=== PATIENT | female | born 1940 | race Caucasian/White ===

== ENCOUNTER 2021-06-22 15:51 | Outpatient (CLI) | payer MEDICARE, SELFPAY ==
--- NOTE | ~2021-06-22 | US_ITS ---
EXAMINATION: US thyroid DATE: 06/22/2021 17:34 INDICATION: Thyroid disease. TECHNIQUE: Multiple ultrasound images of the thyroid were obtained. COMPARISON: None. FINDINGS: The right thyroid lobe measures 3.8 x 1.7 x 1.3 cm. The left thyroid lobe measures 4.4 x 1.6 x 1.8 c m. In the right thyroid lobe, there is a 1.1 cm solid, hypoechoic, dcmtg-kwcj-owxk nodule with lobul ated margin and punctate echogenic foci (TI-RADS TR5). In the right thyroid lobe, there is an 8 mm so lid, very hypoechoic, qlaac-tmfk-mryj nodule with smooth margin without echogenic foci (TR4). In the left thyroid lobe, there is a 2.1 cm predominantly solid, hypoechoic, ztqtg-cdan-lrcd nodule with smo oth margin and punctate echogenic foci and macrocalcification (TR5). There are multiple subcentimeter nodules in the thyroid. IMPRESSION: 1. Multinodular goiter. Consider ultrasound-guided fine-needle aspiration of 2 nodules. Reviewed, dictated and finalized at location A.
== END 2021-06-22 15:52 | disposition home or self-care (01) ==
PROVIDERS: PCP Family Medicine
DX: E04.2 Nontoxic multinodular goiter (principal)
CPT/HCPCS: 76536

== ENCOUNTER 2023-03-04 09:16 | Outpatient (CLI) | payer MEDICARE, SELFPAY ==
--- NOTE | ~2023-03-04 | XR_ITS ---
EXAMINATION: XR barium swallow DATE: 03/04/2023 09:53 INDICATION: Dysphagia, unspecified. TECHNIQUE: The patient drank thick barium, gas-producing crystals, and thin barium. Fluoroscopy of th e hypopharynx and esophagus was performed. Fluoroscopy exposure time was 0.4 minutes. The total numbe r of images was 475. The dose-area product was 0.321 Gy-cm^2. COMPARISON: Upper gastrointestinal series 07/14/2009 FINDINGS: There is no mass or stricture of the esophagus. There is decreased primary and secondary es ophageal peristalsis. No abnormal tertiary waves. There is no hiatal hernia. There was no gastroesoph ageal reflux with provocative maneuvers. IMPRESSION: 1. Moderate esophageal dysmotility. Reviewed, dictated and finalized at location A. [employer]
== END 2023-03-04 09:17 | disposition home or self-care (01) ==
PROVIDERS: PCP Family Medicine; Visit Provider Nurse Practitioner Family
DX: R13.10 Dysphagia, unspecified (principal)
CPT/HCPCS: 74220

== ENCOUNTER 2023-03-05 02:37 | Day surgery (SDC) | payer MEDICARE, SELFPAY ==
[2023-02-19 08:47] VITALS: BMI 19.2
--- NOTE | 2023-02-19 08:53 | PC.NURSE ---
pat call to pt for her upcoming egd on mar 05, 2023. pt states when she was seen in gi office she was understood she was to be scheduled for a barium swallow prior to egd. she has not heard from anyone regarding appt. katharina vega rn called dr cuevas office to confirm and donell stated authorization for mbs was just obtained, she would be calling to schedule pt today. called pt back and informed her of this process. voiced understanding.
--- NOTE | 2023-03-03 09:28 | SUR.PREOP ---
Patient called regarding upcoming procedure. Reviewed preop instructions, appointment times, and procedure prep.
--- NOTE | 2023-03-05 12:30 | PM.HPGS ---
History of Present Illness History of Present Illness Consent: Risks, benefits, and alternatives have been discussed and questions answered. Patient agrees to proceed with procedure. Chief complaint: dysphagia unspecified, nausea Narrative: Alaina Torres is a 82 year old female with?dysphagia to solids and pills.? Symptoms have been going on for several years now and is stable.? dysphagia is worse with solids if she takes big bites or with sticky food such as peanut butter and jelly.? She also reports dysphagia to pills.? Here recently she has been cutting her pills in half and has to swallow approximately 10 times to get them the go down.? She reports sensation in the upper neck area.? she denies any coughing with swallowing.? She denies any vomiting of food back up. This typically will occur 2 to 3 times a month. She has also had queasiness and upset stomach but that improved when she began taking omeprazole. Review of Systems Review of Systems: All systems reviewed & are unremarkable except as noted in HPI and below PMFSH Past Medical History Medical History Hypertension Nausea Thyroid Nodule TIA (transient ischemic attack) Surgical History Surgical History Hx of hysterectomy Family History Family History Father Hypertension Family history of pancreatic cancer Grandparent Carcinoma of colon Mother Family history of Alzheimer's disease Social History Social History Smoking status: Never smoker Second hand tobacco smoke exposure: No Alcohol intake: current Drinks per week: 2 Alcohol use details: occasionally wine Substance use: never Substance use type: does not use Living arrangements: with family Additional living arrangements comments: 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 Occupation/Education: retired Gender identity (if verbalized by the patient): Female Spiritual care concerns: No Meds Home Medications and Allergies Home Medications Medication Instructions Recorded Confirmed Type aspirin 81 mg tablet,delayed 81 mg PO DAILY 09/23/19 03/05/23 History release (Adult Low Dose Aspirin) diltiazem HCl 120 mg 120 mg PO DAILY 09/23/19 03/05/23 History capsule,extended release 24 hr calcium carbonate 500 mg calcium 2,500 mg PO DAILY 10/27/20 03/05/23 History (1,250 mg) chewable tablet (Calcium 500) cholecalciferol (vitamin D3) 50 50 mcg PO DAILY 10/27/20 03/05/23 History mcg (2,000 unit) capsule coenzyme Q10 50 mg capsule (Co 50 mg PO DAILY 10/27/20 03/05/23 History Q-10) lisinopril 20 mg tablet 20 mg PO DAILY #30 tabs 10/27/20 03/05/23 Rx multivitamin 1 tablet PO DAILY 10/27/20 03/05/23 History omega-3 360 ax-dwk-gsk-fish oil 1 cap PO DAILY 10/27/20 03/05/23 History 1,200 mg capsule,delayed release (Fish Oil) vit C 250 mg-vit E 90 mg-zinc 40 1 tablet PO BID 10/27/20 03/05/23 History mg-copper 1 fe-znvaoi-qntiru capsule (PreserVision AREDS-2) vitamin E 200 unit capsule 200 unit PO DAILY 10/27/20 03/05/23 History ergocalciferol (vitamin D2) 1,250 1,250 mcg PO WEEKLY #12 caps 10/30/20 03/05/23 Rx mcg (50,000 unit) capsule (Vitamin D2) methimazole 5 mg tablet 2.5 mg PO DAILY 05/08/22 03/05/23 History lorazepam 0.5 mg tablet 0.5 mg PO BID PRN anxiety #60 tabs 12/20/22 03/05/23 Rx omeprazole 20 mg capsule,delayed 20 mg PO DAILY 1 month #30 caps 02/11/23 03/05/23 Rx release mupirocin 2 % topical ointment 1 applic topical BID #15 grams 03/03/23 03/05/23 Rx Allergies Allergy/AdvReac Type Severity Reaction Status Date / Time nitrofurantoin Allergy Unknown Unknown Verified 03/05/23 12:28 Exam Const: General: alert Orientation/consciousness: patient oriented x3 Resp: Auscultation: clear to auscultat
[2023-03-05 12:31] VITALS: BP 146/77; PULSE 80; RESP 16; TEMP 36.3; O2SAT 98
[2023-03-05] MEDS: LACTATED RINGERS 1,000 ML 150 ML IV CONT (12:42)
--- NOTE | 2023-03-05 12:53 | WPDANESEPPF ---
Anes - Initial Pre Proc Eval Procedure: Operation Date: 03/05/23 13:30 Proposed Procedures p Esophagogastroduodenoscopy - Ameya Tam MD Date/Time: 03/05/23 12:53 Surgeon: Ameya Tam MD Pre Op Diagnosis: dysphagia unspecified, nausea Patient Data Age: 82 Gender: F Height: 1.68 m Weight: 54.8 kg Last Vital Signs Temp 97.4 F L 03/05/23 12:31 Pulse 80 03/05/23 12:31 Resp 16 03/05/23 12:31 BP 146/77 H 03/05/23 12:31 Pulse Ox 98 03/05/23 12:31 O2 Del Method Room Air 03/05/23 12:31 Allergies Allergy/AdvReac Type Severity Reaction Status Date / Time nitrofurantoin Allergy Unknown Unknown Verified 03/05/23 12:28 Home Medications Medication Instructions Recorded Confirmed Type aspirin 81 mg tablet,delayed 81 mg PO DAILY 09/23/19 03/05/23 History release (Adult Low Dose Aspirin) diltiazem HCl 120 mg 120 mg PO DAILY 09/23/19 03/05/23 History capsule,extended release 24 hr calcium carbonate 500 mg calcium 2,500 mg PO DAILY 10/27/20 03/05/23 History (1,250 mg) chewable tablet (Calcium 500) cholecalciferol (vitamin D3) 50 50 mcg PO DAILY 10/27/20 03/05/23 History mcg (2,000 unit) capsule coenzyme Q10 50 mg capsule (Co 50 mg PO DAILY 10/27/20 03/05/23 History Q-10) lisinopril 20 mg tablet 20 mg PO DAILY #30 tabs 10/27/20 03/05/23 Rx multivitamin 1 tablet PO DAILY 10/27/20 03/05/23 History omega-3 360 fh-gzr-dqx-fish oil 1 cap PO DAILY 10/27/20 03/05/23 History 1,200 mg capsule,delayed release (Fish Oil) vit C 250 mg-vit E 90 mg-zinc 40 1 tablet PO BID 10/27/20 03/05/23 History mg-copper 1 fb-nugisx-sqpunf capsule (PreserVision AREDS-2) vitamin E 200 unit capsule 200 unit PO DAILY 10/27/20 03/05/23 History ergocalciferol (vitamin D2) 1,250 1,250 mcg PO WEEKLY #12 caps 10/30/20 03/05/23 Rx mcg (50,000 unit) capsule (Vitamin D2) methimazole 5 mg tablet 2.5 mg PO DAILY 05/08/22 03/05/23 History lorazepam 0.5 mg tablet 0.5 mg PO BID PRN anxiety #60 tabs 12/20/22 03/05/23 Rx omeprazole 20 mg capsule,delayed 20 mg PO DAILY 1 month #30 caps 02/11/23 03/05/23 Rx release mupirocin 2 % topical ointment 1 applic topical BID #15 grams 03/03/23 03/05/23 Rx Patient hx anesthesia problems: none Family hx anesthesia problems: none Results Review: All pre-operative results and documents have been reviewed as part of the pre-operative evaluation. [facility] Past Medical History Medical History Hypertension Nausea Thyroid Nodule TIA (transient ischemic attack) Surgical History Surgical History Hx of hysterectomy Family History Family History Father Hypertension Family history of pancreatic cancer Grandparent Carcinoma of colon Mother Family history of Alzheimer's disease Social History Social History Smoking status: Never smoker Second hand tobacco smoke exposure: No Alcohol intake: current Drinks per week: 2 Alcohol use details: occasionally wine Substance use: never Substance use type: does not use Living arrangements: with family Additional living arrangements comments: 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
[2023-03-05 13:12] VITALS: BP 148/59; PULSE 76; RESP 19; O2SAT 98
[2023-03-05 13:22] VITALS: BP 148/76; PULSE 77; RESP 19; O2SAT 98
[2023-03-05 13:32] VITALS: BP 158/75; PULSE 77; RESP 20; O2SAT 98
== END 2023-03-05 13:44 | disposition home or self-care (01) ==
PROVIDERS: PCP Family Medicine; Visit Provider Internal Medicine Gastroenterology
PROC: 0DJ08ZZ Inspection of Upper Intestinal Tract, Via Natural or Artificial Opening Endoscopic (ICD-10-PCS; CPT 43235; principal; 2023-03-05 13:30)
DX: K21.9 Gastro-esophageal reflux disease without esophagitis (principal); Z79.82 Long term (current) use of aspirin; I10 Essential (primary) hypertension; Z86.73 Personal history of transient ischemic attack (TIA), and cerebral infarction without residual deficits
CPT/HCPCS: 43450; 43239; 88305; J7120

== ENCOUNTER 2024-07-16 09:54 | Inpatient (IN) | payer MEDICARE, SELFPAY ==
[2024-07-16] VITALS (14 sets, daily range): BP systolic 137–174; BP diastolic 64–109; PULSE 52–103; RESP 13–20; TEMP 36.4–37.6; O2SAT 95–100; BMI 22.7
--- NOTE | ~2024-07-16 | XR_ITS ---
Portable chest x-ray Comparison: 10/24/2008 Clinical History: Preoperative evaluation Findings: Lungs are clear, without focal consolidation or pleural effusion. Cardiomediastinal silho uette is enlarged. Bones and soft tissues are unremarkable. Impression: Clear lungs. Cardiomegaly. Reviewed, dictated and finalized at location . Impression: Clear lungs. Cardiomegaly.
--- NOTE | ~2024-07-16 | XR_ITS ---
AP view of the pelvis and AP and lateral views of the left hip Clinical history: Pain Findings: No acute fracture or dislocation is seen. There is an acute, comminuted intertrochanteric f racture of the proximal left femur with significant displacement and varus attenuation of the major d istal fracture fragment.. Soft tissues are unremarkable. Impression: Acute, comminuted, significantly displaced and angulated intertrochanteric fracture of the proximal l eft femur. Reviewed, dictated and finalized at location M. Impression: Acute, comminuted, significantly displaced and angulated intertrochanteric frac ture of the proximal left femur.
--- NOTE | ~2024-07-16 | XR_ITS ---
INTRAOPERATIVE FLUOROSCOPY: CLINICAL HISTORY: 84 years old Female; IT NAIL LEFT HIP FX PROCEDURE COMMENTS: Limited intraoperative fluoroscopy of the left hip was performed. CUMULATIVE DOSE: 8.2 mGy FLUOROSCOPY TIME: 23.2 seconds FINDINGS/IMPRESSION: Please refer to operative note for further details. Reviewed, dictated and finalized at location A.
--- NOTE | ~2024-07-16 | XR_ITS ---
EXAMINATION: XR chest 1V portable 07/22/2024 09:38 INDICATION: Hypotension PROCEDURE: AP portable chest COMPARISON: 07/16/2024 FINDINGS: The lungs are clear. The cardiomediastinal silhouette is mildly enlarged. There are no ple ural effusions. There is no pneumothorax suspected. IMPRESSION: 1: NO ACUTE CARDIOPULMONARY DISEASE. Reviewed, dictated and finalized at location A.
--- NOTE | 2024-07-16 10:02 | ECG_ITS ---
Test Date: 2024-07-16 10:00:49 Measurements Intervals [place] Rate: 79 P: 83 CA: 136 QRS: 73 QRSD: 86 T: 52 QT: 412 QTc: 475 Interpretive Statements SINUS RHYTHM POSSIBLE LEFT ATRIAL ENLARGEMENT MINIMAL Q WAVES- INF/LAT LEADS BASELINE ARTIFACT- I, II, III, AVR, AVL, AVF, V4-V6 BORDERLINE ECG No previous ECG available for comparison Electronically Signed On 07-16-2024 10:12:22 CDT by Tarun Arthur D.O.
[2024-07-16] MEDS: HYDROmorphone HCL INJ (*CRX) 2 MG/ML VIAL 0.5 MG IV PUSH ×2 (10:15→12:28)
[2024-07-16] MEDS: CYCLOBENZAPRINE HCL 10 MG TABLET PO (10:15)
--- NOTE | 2024-07-16 10:24 | ED.GENADULT ---
HPI - General Adult General Chief complaint: Extremity Injury, Lower Stated complaint: RLE pain/fall Time Seen by Provider: 07/16/24 10:01 History of Present Illness HPI narrative: 82-year-old female present to the emergency department for evaluation for left hip pain. Patient states that she had a mechanical fall and tripped over a rug that was in a different position. Patient states she did injure her left hip but patient denies striking head denies any loss of consciousness. Patient arrived emergency department by EMS with a left leg that was short and externally rotated. Patient denies any prior surgeries. Patient states she is not on any blood thinners. Related Data Home Medications ?Medication ?Instructions ?Recorded ?Confirmed ?Last Taken ?Type aspirin 81 mg tablet,delayed 81 mg PO DAILY 09/23/19 07/16/24 03/04/23 History release (Adult Low Dose Aspirin) diltiazem HCl 120 mg 120 mg PO DAILY 09/23/19 07/16/24 03/04/23 History capsule,extended release 24 hr calcium carbonate (Calcium 500) 2,500 mg PO DAILY 10/27/20 07/16/24 03/04/23 History cholecalciferol (vitamin D3) 50 50 mcg PO DAILY 10/27/20 07/16/24 03/04/23 History mcg (2,000 unit) capsule coenzyme Q10 50 mg capsule (Co 50 mg PO DAILY 10/27/20 07/16/24 03/04/23 History Q-10) multivitamin 1 tablet PO DAILY 10/27/20 07/16/24 03/04/23 History vitamin E 200 unit capsule 200 unit PO DAILY 10/27/20 07/16/24 03/04/23 History methimazole 5 mg tablet 2.5 mg PO DAILY 05/08/22 07/16/24 03/04/23 History lorazepam 1 mg tablet 1 mg PO Q12H anxiety 07/16/24 07/16/24 Unknown History Allergies Allergy/AdvReac Type Severity Reaction Status Date / Time nitrofurantoin Allergy Unknown Unknown Verified 07/16/24 16:31 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 Hemorrhoids Diverticulosis GERD (gastroesophageal reflux disease) Thyroid Nodule Dysphagia Intertrochanteric fracture of left hip Nausea TIA (transient ischemic attack) Hypertension Surgical History Surgical History Hx of hysterectomy Family History Family History Father Hypertension Family history of pancreatic cancer Grandparent Carcinoma of colon Mother Family history of Alzheimer's disease Social History Social History Smoking status: Never smoker Second hand tobacco smoke exposure: No Alcohol intake: current Drinks per week: 1 Alcohol use details: occasionally wine Substance use: never Substance use type: does not use Do You Feel Safe in your Home?: Yes Lack of Transportation: No Lack of Food: Never True Current Housing: I Have Housing Concerned About Future Housing: No Difficulty Paying Gas/Electric Bills: No Difficulty Paying for Meds: No Currently Unemployed: No Education: Master's Degree or Higher Difficulty w/ Childcare or Family Care: No Living arrangements: with family Additional living arrangements comments: 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 EYES: PERRLA/EOMI, conjunctivae clear. NOSE: Normal no drainage EARS:TMS clear with good light reflex. THROAT: Pharynx clear, no exudate. NECK: Supple. No adenopathy, no masses. RESPIRATORY: Airway patent, respirations nonlabored. Clear to auscultation bilaterally, no rales, rhonchi, wheezing. CARDIOVASCULAR: Regular rate and rhythm without murmurs rubs or gallops. ABDOMINAL: Soft, nontender, nondistended, normal bowel sounds MUSCULOSKELETAL: Left leg is shortened with strong distal pulses NEURO: Alert. Cranial nerves II through XII intact. Good gait. Good coordination SKIN: Warm, dry. Normal Color Course Vital Signs Vital signs: Vital Signs Temperature 97.9 F 07/16/24 09:58 Pulse Rate 86 07/16/24 09:58 Respiratory Rate 16 07/16/24 09:58 Blood Pressure 166/91 H 07/16/24 09:58 Pulse Oximetry 100 07/16/24 09:58 Oxygen Delivery Room Air 07/16/24 09:58 Temperature 97.9 F 07/16/24 16:33 Pulse Rate 83 07/16/24 16:33 Respiratory Rate 18 07/16/24 16:33 Blood Pressure 147/71 H 07/16/24 16:33 Pulse Oximetry 100 07/16/24 16:33 Oxygen Delivery Room Air 07/16/24 16:00 Oxygen Flow Rate 2 07/16/24 15:25 Medical Decision Making MDM Narrative Medical decision making narrative: 84-year-old female presents emergency department for evaluation for left hip pain. X-ray showed a comminuted intertroch fracture. Case was discussed with Orthopedics and they felt that this could be handled surgically here. Case was discussed with hospitalist and patient was admitted to the hospitalist with ortho consult. Patient family updated on the results of the imaging and plan for surgical intervention. Patient was provided IV medications for pain control. All questions concerns were addressed. Patient was comfortable with plan for anticipated surgery and hospitalization. Patient states she did have a family member that stated [facility] and if she needed rehab she would be interested in going to that facility. Differential Diagnosis Differential Diagnosis: Hip fracture, hip dislocation, pelvic fracture Vital Signs Vital Signs: Vital Signs Temperature 97.9 F 07/16/24 09:58 Pulse Rate 86 07/16/24 09:58 Respiratory Rate 16 07/16/24 09:58 Blood Pressure 166/91 H 07/16/24 09:58 Pulse Oximetry 100 07/16/24 09:58 Oxygen Delivery Room Air 07/16/24 09:58 Temperature 97.9 F 07/16/24 16:33 Pulse Rate 83 07/16/24 16:33 Respiratory Rate 18 07/16/24 16:33 Blood Pressure 147/71 H 07/16/24 16:33 Pulse Oximetry 100 07/16/24 16:33 Oxygen Delivery Room Air 07/16/24 16:00 Oxygen Flow Rate 2 07/16/24 15:25 Lab Data Lab results reviewed: Yes I reviewed the patient's lab results. 07/16/24 10:21 07/16/24 10:21 Labs: Lab Results 07/16/24 Range/Units 10:21 WBC 6.7 (4.5-10.0) K/mm3 RBC 4.31 (4.2-5.4) M/mm3 Hgb 12.3 (12.0-15.0) g/dL Hct 38.8 (37.0-47.0) % MCV 90.0 (80-100) fl MCH 28.5 (26-34) pg MCHC 31.7 L (32-36) g/dl RDW 13.3 (11.5-14.5) % Plt Count 225 (150-375) k/mm3 MPV 10.1 (7.4-10.4) fl Immature Gran % (Auto) 0.2 (0-0.5) % Neut % (Auto) 60.2 (45.5-73.1) % Lymph % (Auto) 26.5 (18.3-44.2) % [place] % (Auto) 8.7 H (2.6-8.5) % Eos % (Auto) 3.6 (0-4.4) % Baso % (Auto) 0.8 (0.2-1.2) % Lymph # (Auto) 1.76 (0.9-3.2) K/mm3 [place] # (Auto) 0.6 (0.1-0.6) K/mm3 Eos # (Auto) 0.2 (0-0.3) K/mm3 Baso # (Auto) 0.1 (0.0-0.1) K/mm3 Abs Immat Gran (auto) 0.01 (0.00-0.031) K/mm3 Absolute Neuts (auto) 4.0 (1.3-6.7) K/mm3 Absolute Nucleated RBC 0.000 (0.0-0.012) K/mm3 Nucleated RBC % 0.0 (0.0-0.2) % PT 12.9 (11.1-14.7) Seconds INR 0.9 APTT 25.0 (22.3-36.8) Seconds Sodium 140 (137-145) mmol/L Potassium 4.4 (3.4-5.0) mmol/L Chloride 107 (98-107) mmol/L Carbon Dioxide 28 (22-30) mmol/L Anion Gap 5 (4-12) mmol/L BUN 26 H (7-17) mg/dL Creatinine 0.94 (0.7-1.0) mg/dL Estim Creat Clear Calc 38 ml/min Estimated GFR 57 L (59 - ) Glucose 100 (65-110) mg/dL Calcium 9.4 (8.4-10.2) mg/dL Total Bilirubin 0.6 (0.2-1.3) mg/dL AST 27 (14-36) U/L ALT 21 (6-35) U/L Alkaline Phosphatase 78 (38-126) U/L Total Protein 7.0 (6.3-8.2) g/dL Albumin 4.1 (3.5-5.1) g/dL Blood Type O Positive Antibody Screen Negative Imaging Data Radiologist's impression: Impressions Hip/Pelvis X-Ray 07/16/24 10:39 Impression: Acute, comminuted, significantly displaced and angulated intertrochanteric fracture of the proximal left femur. Chest X-Ray 07/16/24 10:40 Impression: Clear lungs. Cardiomegaly. Discharge Plan Discharge Clinical Impression: Closed fracture of left hip Patient Disposition: Still a Patient Condition: Stable
[2024-07-16 10:31] LABS: Basophils Absolute Auto 0.1 K/mm3 (0.0-0.1); Basophils Percent Auto 0.8 % (0.2-1.2); Eosinophils Absolute Auto 0.2 K/mm3 (0-0.3); Eosinophils Percent Auto 3.6 % (0-4.4); Hematocrit 38.8 % (37.0-47.0); Hemoglobin 12.3 g/dL (12.0-15.0); Immature Granulocyte Absolute 0.01 K/mm3 (0.00-0.031); Immature Granulocyte Percent A 0.2 % (0-0.5); Lymphocytes Absolute Auto 1.76 K/mm3 (0.9-3.2); Lymphocytes Percent Auto 26.5 % (18.3-44.2); Mean Corpuscular HGB Conc 31.7 g/dl (32-36); Mean Corpuscular Hemoglobin 28.5 pg (26-34); Mean Platelet Volume 10.1 fl (7.4-10.4); Monocytes Absolute Auto 0.6 K/mm3 (0.1-0.6); Monocytes Percent Auto 8.7 % (2.6-8.5); Neutrophils Percent Auto 60.2 % (45.5-73.1); Platelet Count Result 225 k/mm3 (150-375); Red Blood Count 4.31 M/mm3 (4.2-5.4); Red Cell Distribution Width 13.3 % (11.5-14.5); White Blood Count 6.7 K/mm3 (4.5-10.0)
[2024-07-16 10:43] LABS: INR 0.9; Prothrombin Time 12.9 Seconds (11.1-14.7)
[2024-07-16 10:45] LABS: Alanine Aminotransferase 21 U/L (6-35); Albumin Level 4.1 g/dL (3.5-5.1); Alkaline Phosphatase 78 U/L (38-126); Anion Gap 5 mmol/L (4-12); Aspartate Amino Transferase 27 U/L (14-36); Bilirubin,Total 0.6 mg/dL (0.2-1.3); Blood Urea Nitrogen 26 mg/dL (7-17); Calcium 9.4 mg/dL (8.4-10.2); Carbon Dioxide 28 mmol/L (22-30); Chloride 107 mmol/L (98-107); Estimated CRCL calculation 38 ml/min; Estimated Glomerular Filt Rate 57; Glucose 100 mg/dL (65-110); Potassium 4.4 mmol/L (3.4-5.0); Sodium 140 mmol/L (137-145)
--- OUTSIDE RECORDS SUMMARY | 2024-07-16 11:03 | XMS_ITS | Clinical Summary ---
Author Organization [facility] Address [address] [place] [address] Care Team Providers Care Gas Scrubber Operator Name Role Phone Lizett Ames MD Primary Care Provider [phone] Allergies Active Allergy Reactions Criticality Noted Date Comments Nitrofurantoin Swelling 06/03/2012 Reaction: SWELLING, , Nitrofurantoin Monohyd/M-Cryst Anaphylaxis High 02/07/2013 Medications co-enzyme Q-10 50 mg capsule Active aspirin 81 mg tablet Active multivitamin tabletIndicatio ns:Vitamin Deficiency Prevention Active vitamin E (AQUASOL E) 100 unit capsule Active cyanocobalamin (Vitamin B-12) 250 mcg tablet Take 1 tablet (250 mcg total) by mouth daily Active CARTIA XT 120 mg 24 hr capsule Take 1 capsule (120 mg total) by mouth daily 03/15/2019 Active cholecalciferol (VITAMIN D-3) 25 mcg (1,000 unit) tablet Take 2 tablets (2,000 Units total) by mouth daily 60 tablet 11 01/24/2020 Active lisinopriL (PRINIVIL,ZESTR IL) 20 mg tablet Take 1 tablet (20 mg total) by mouth daily 11/28/2020 Active LORazepam (ATIVAN) 0.5 mg tablet Take 1 tablet (0.5 mg total) by mouth 01/12/2021 Active calcium carbonate-vitam in D3 (CALTRATE 600 + D) 1500 mg (600 mg elemental) -400 units per tablet Take 1 tablet by mouth daily Active vit A/vit C/vit E/zinc/copper (PRESERVISION AREDS ORAL) Take by mouth Acti ve zoledronic acid 4 mg/5 mL injection Infuse into a venous catheter Once a year Active omeprazole (PriLOSEC) 20 mg capsule Take 1 capsule (20 mg total) by mouth daily Active escitalopram (LEXAPRO) 10 mg tablet Take 1 tablet (10 mg total) by mouth daily 02/20/2024 Active methIMAzole (TAPAZOLE) 5 mg tablet Take 1/2 (one-half) tablet by mouth once daily 45 tablet 1 06/10/2024 Active Active Problems Problem Noted Date Diagnosed Date Subclinical hyperthyroidism 10/15/2021 Assessment & Plan (02/10/2023 12:09 PM FORMULA ROOM WORKER): Follow up TFT today Assessment & Plan (01/15/2022 3:20 PM CDT): Given age, symptoms and osteoporosis - she is eligible for treatment Discussed FNA of nodules ----> if malignant ---> consider surgery If benign, discussed medical therapy vs. DOHERTY Patient prefers medical therapy - started on methimazole 09/2021 Recheck TSH/free 4 today to evaluate effect of methimazole Assessment & Plan (10/15/2021 1:29 PM CDT): Given age, symptoms and osteoporosis - She is eligible for treatment Discussed FNA of nodules ----> if malignant ---> consider surgery If benign, discussed medical therapy vs DOHERTY Patient prefers medical therapy - will start small dose MMI based on labs today 5 mg vs 2.5 mcg Recheck labs and symptoms in 2-3 months Discussed MMI AEs Thyroid nodule 10/15/2021 Assessment & Plan (02/10/2023 12:10 PM FORMULA ROOM WORKER): Benign Plan follow up neck US in 1-2 years Assessment & Plan (01/15/2022 3:22 PM CDT): The left and right thyroid nodules meet the BJORN guidelines for biopsy/fine- needle aspiration Patient is a clinically euthyroid We discussed the procedure of fine-needle aspiration, risk and benefit, patient was willing to proceed Discussed consent with patient in details and patient consented to procedure today Discussed potential results including benign, malignant, AUS/FLUS, and suspicious I handed the patient an education brochure detailing thyroid nodule and fine- needle aspiration Discussed natural history and course of follow-up of thyroid nodules FNA of the left-sided nodule and two small right-sided nodules (one on top of another with a very similar appearance) was performed today We will inform her about FNA results Assessment & Plan (10/15/2021 1:12 PM CDT): We reviewed the ultrasound images with the patient. The left and right thyroid nodules meet the BJORN guidelines for biopsy/fine- needle aspiration Patient is a clinically and biochemically euthyroid We discussed the procedure of fine-needle aspiration, risk and benefit, patient is willing to proceed Discussed consent with patient in details and patient consented to procedure today Discussed potential results including benign, malignant, AUS/FLUS, and suspicious I handed the patient an education brochure detailing thyroid nodule and fine- needle aspiration Discussed natural history and course of follow-up of thyroid nodules Irregular heart rate 09/08/2018 Age-related osteoporosis wit hout current pathological fracture 09/07/2018 Assessment & Plan (10/15/2021 1:13 PM CDT): On Reclast Following with [facility] Hypertension 02/19/2012 Overview (06/28/2016): Hypertension, Unspecified Encounters Date Type Department Care Team Description 05/13/2024 2:00 PM FORMULA ROOM WORKER Infusion [address] [place] [phone] Age-related osteoporosis without current pathological fracture (Primary Dx) 05/03/[address] [place] [phone] Carla García RN from Last 3 Months Surgical History Surgery Date Site/Laterality Comments HYSTERECTOMY Total Hysterectomy - (Added by TW Conv) CATARACT EXTRACTION 2018 Medical History Medical History Date Comments Personal history of transien t ischemic attack (TIA), and cerebral infarction without residual deficits History of transient cerebra l ischemia - (Added by TW Conv) Osteoporosis Heart disease Hypertension Family History Medical History Relation Name Comments Cancer Father Lauvear Hearing loss Father Lauvear Hip fracture Father Lauvear Hypertension Father Lauvear Parkinsonism Father Lauvear Family history of Parkinson's disease - (Added by TW Conv) Prostate cancer Father Lauvear Cancer, pros mitchell; Alzheimer's disease Mother Natasha Family h istory of Alzheimer's disease - (Added by TW Conv) Hip fracture Mother Natasha Osteoporosis Mother [place] Stroke Mother Natasha Family history of cerebrovascular accident (CVA) - (Added by TW Conv) Relation Name Status Comments Father Delmauvear Mother Natasha Social History Tobacco Use Types Packs/Day Years Used Date Smoking Tobacco: Never Smokeless Tobacco: Never Tobacco Cessation:Counseling Given: Not Answered Alcohol Use Standard Drinks/Week Comments Yes 0 (1 standard drink = 0.6 oz pur e alcohol) Comments Unknown Sex and Gender Information Value Date Recorded Sex Assigned at Not on file Legal Sex Female 12:57 AM FORMULA ROOM WORKER Gender Identity Not on file Sexual Orientation Not on file Obstetrics History Last Filed Vital Signs Vital Sign Reading Time Taken Comments Blood Pressure 159/83 05/13/2024 2:13 PM FORMULA ROOM WORKER Pulse 62 05/13/2024 2:13 PM FORMULA ROOM WORKER Temperature 36.5 C (97.7 F) 05/13/2024 2:13 PM FORMULA ROOM WORKER Respiratory Rate 20 05/13/2024 2:13 PM FORMULA ROOM WORKER Oxygen Saturation 97% 05/13/2024 2:13 PM FORMULA ROOM WORKER Inhaled Oxygen Concentration - - Weight 54.3 kg (119 lb 9.6 oz) 04/14/2024 10:44 AM FORMULA ROOM WORKER Height 167.6 cm (5' 6 ) 04/14/2024 10:44 AM FORMULA ROOM WORKER Body Mass Index 19.3 04/14/2024 10:44 AM FORMULA ROOM WORKER Plan of Treatment Health Maintenance Due Date Last Done Comments Depression Screening 1940 Fall Risk Assessment 1940 Hepatitis B Screening 1960 Well Visit 65+ 06/09/2007 DTaP/Tdap/Td Vaccine (2 - Td or Tdap) 05/25/2023 05/24/2013, 01/10/2003 Influenza Vaccine (#1) 2023 , 12/22/2018, 12/25/2017, Additional history exists Osteoporosis Screening-Bone Density Scan 04/14/2026 04/14/2024, 03/25/2023, 02/18/2022, Additional history exists Pneumococcal vaccine 65+ Completed 019, 09/20/2016, 02/07/2010 Zoster Vaccine Completed 06/16/2018, 11/08/2017 Procedures Procedure Name Priority Date/Time Associated Diagnosis Comments DEXA TBS AXIAL SKELETON BONE DENSITY 1 OR MORE SITES Schedule Routine, Read Routine (OP Routine) 04/14/2024 10:46 AM FORMULA ROOM WORKER Age-related osteoporosis without current pathological fracture from Last 3 Months or Most Recently Relevant to Health Maintenance Results * Dexa TBS Axial Skeleton Bone Density 1 or more sites (04/14/2024 10:46 AM FORMULA ROOM WORKER) Anatomical Region Laterality Modality Wrist, Body N/A Radiographic Edwina ging Narrative 04/19/2024 12:11 PM FORMULA ROOM WORKER Patient Name: Alaina Fournier Date of : 1940 Date of scan: 04/14/2024 Bone mineral density was performed on a Hologic Discovery Densitometer. Based on machine cross-calibration and precision studies the least significant changes of this densitometer is 0.024 g/cm2 at the spine, 0.020 g/cm2 at the total proximal femur, and 0.014g/cm2 at the forearm. HISTORY: This is a 83 y.o. postmenopausal female with a history of osteoporosis, thyroid disease, and vitamin D deficiency. She reports that she has never smoked. She has never used smokeless tobacco. Currently on treatment with calcium, vitamin D, and thyroid hormone and previously treated with alendronate (Fosamax), risedronate (Actonel), zoledronic acid (Reclast), teriparatide (Forteo), and hormone replacement therapy. INDICATIONS: Menopause status, history of prior wrist and vertebral fracture, vitamin D deficiency, and history of osteoporosis. FINDINGS: BONE MINERAL DENSITY OF THE LUMBAR SPINE Bone Mineral Density (BMD) of the lumbar spine was measured from L1-L4 and the average density was calculated to be 1.091 gm/cm2. This corresponds to a T-score (standard deviations from the mean of young adults) of 0.4. When compared to the previous study of 03/25/2023 there has been no significant changes in bone density. BONE MINERAL DENSITY OF THE PROXIMAL FEMUR Bone Mineral Density (BMD) of the left hip total was found to be 0.695 gm/cm2. This corresponds to a T-score standard deviations from the mean of young adults of -2.0. Femoral neck is 0.522 gm/cm2 with a T-score (standard deviations from the mean of young adults) of -2.9. When compared to the previous study of 03/25/2023 there has been no significant changes in bone density. BONE MINERAL DENSITY OF THE FOREARM Bone Mineral density (BMD) of the left proximal 1/3 of the radius measures 0.582 gm/cm2. This corresponds to a T-score (standard deviations from the mean of young adults) of -1.9. When compared to the previous study of 03/25/2023 there has been a -0.021 gm/cm (-3.4%) decrease in bone density that is considered significant. A forearm bone density study was performed in addition to the routine study due to the need to provide a comparison to the previous exam. SUMMARY: Bone mineral density shows evidence of osteoporosis and marked increase risk of fracture. There has been a significant decrease in bone density since previous measurement. The lumbar spine Trabecular Bone Score is 1.308 which suggests partially degraded bone microarchitecture compared to the general population. Final decisions regarding diagnostic or therapeutic recommendations should include BMD, TBS, additional clinical risk factors as well the clinical context of the patient. Please see attached TBS results for further details. ADDITIONAL COMMENTS: Postmenopausal Women and Men Over 50: Diagnostic criteria: Osteoporosis: BMD at or below -2.5 T-score; Osteopenia (low bone mass): BMD between -1.0 and -2.5 T-score. If the patient has a history of a fragility fracture, a fracture that occurred with trauma equivalent to a fall from a standing position or less, then the diagnosis is osteoporosis regardless of bone density. The history and data sections of the bone mineral density scan were prepared by Lara Omer) BRUNA who is accredited by the International Society of Clinical Densitometry. The overall patient assessment and scan interpretation were performed by Lukas Olivo M.D. who is certified by the International Society of Clinical Densitometry. [id number] Lukas Olivo MD IMG DXA PROCEDURES Final Result from Last 3 Months or Most Recently Relevant to Health Maintenance Insurance COUNTS INCLUDE 234 BEDS AT THE [facility] MEDICARE INCLUDE 234 BEDS AT THE [facility] MEDIC[facility] Address: [address] [place] [address] [employer] MEDICARE [facility] Address: [address] [address] [place] [address] COUNTS INCLUDE 234 BEDS AT THE [facility] MEDICARE Care Teams Gas Scrubber Operator Relationship Specialty Start Date End Date Lizett Ames MD PCP - General Family Medicine 11/09/21
--- OUTSIDE RECORDS SUMMARY | 2024-07-16 11:03 | XMS_ITS | Encounter Summary ---
Author Organization [facility] Address [address] [place] [address] Care Team Providers Care Delivery Representative Name Role Phone Makeda Pillai MD Primary Care Provi [facility] Reason for Visit * Reason Comments Med Refill Encounter Details Date Type Department Care Team (Late st Contact Info) Description 07/15/2024 Refill [facility] [address] [place] [phone] Chaz Olvera MD [address] [place] [address] [address] [place] [address] Social History Tobacco Use Types Packs/Day Years Used Date Smoking Tobacco: Never Smokeless Tobacco: Never Alcohol Use Standard Drinks/Week Comments Yes 3.3 (1 standard drink = 0.6 oz p ure alcohol) glass of wine 3 times a week Comments No Sex and Gender Information Value Date Recorded Sex Assigned at Not on file Legal Sex Female 11:31 AM SUPERVISOR PRE WAVE Gender Identity Not on file Sexual Orientation Not on file Occupation Industry Job Start Date Job End Date Not on file Not on file Not on file Not on file Not on file Not on file Not on file Not on file documented as of this encounter Miscellaneous Notes * Telephone Encounter - Rose Junior T - 07/16/2024 7:51 AM CDT Comments: Date Last Seen: 10/13/2023 with Chaz Olvera MD Next Appointment: with Chaz Olvera MD Last BMP: Lab Results Component Value Date/Time NA 141 11/15/2022 12:00 AM K 4.9 11/15/2022 12:00 AM CL 107 11/15/2022 12:00 AM CO2 27 11/15/2022 12:00 AM CA 9.9 11/15/2022 12:00 AM BUN 27 (H) 11/15/2022 12:00 AM CREAT 0.98 (H) 11/15/2022 12:00 AM GLUCOSE 88 11/15/2022 12:00 AM BCRATIO 28 (H) 11/15/2022 12:00 AM Last CMP: Lab Results Component Value Date/Time NA 141 11/15/2022 12:00 AM K 4.9 11/15/2022 12:00 AM CL 107 11/15/2022 12:00 AM CO2 27 11/15/2022 12:00 AM CA 9.9 11/15/2022 12:00 AM BUN 27 (H) 11/15/2022 12:00 AM CREAT 0.98 (H) 11/15/2022 12:00 AM GLUCOSE 88 11/15/2022 12:00 AM TOTALPROTEIN 6.8 11/15/2022 12:00 AM ALBUMIN 4.4 11/15/2022 12:00 AM BILITOTAL 0.4 11/15/2022 12:00 AM ALKPHOS 60 11/15/2022 12:00 AM AST 20 11/15/2022 12:00 AM ALT 12 11/15/2022 12:00 AM BCRATIO 28 (H) 11/15/2022 12:00 AM Last 3 INR: No results found for: INR , PT , PROTIMEPOC Last Lipid Panel: Lab Results Component Value Date/Time CHOLTOT 192 02/08/2013 08:33 AM HDL 64 (H) 02/08/2013 08:33 AM LDLCALC 113 (H) 02/08/2013 08:33 AM TRIGLYCERIDE 75 02/08/2013 08:33 AM Current Medication: Current Outpatient Medications Medication Sig Dispense Refill calcium carbonate + vitamin D (CALTRATE+D) 600 mg-10 mcg (400 unit) Tablet Take 1 Tablet by mouth daily. ergocalciferol (VITAMIN D2) 50,000 unit capsule Take 50,000 Units by mouth. diltiaZEM (CARDIZEM CD) 120 mg Controlled Delivery 24 hour capsule Take 1 capsule by mouth once daily 90 Capsule 3 lisinopriL (PRINIVIL) 20 mg tablet Take 1 tablet by mouth once daily 90 Tablet 3 omeprazole (PriLOSEC) 20 mg Capsule, Delayed Release(E.C.) Take 20 mg by mouth 2 times daily. methIMAzole (TAPAZOLE) 5 mg tablet Take 5 mg by mouth daily. zoledronic acid (ZOMETA) 4 mg/5 mL Solution Inject by intravenous injection. ZOLEDRONIC [id number]-[id number] IV Inject by intravenous injection. Taking once a year.Last dose wason June 07 LORazepam (ATIVAN) 2 mg tablet Take 10 mg by mouth 3 times daily. vit A/vit C/vit E/zinc/copper (PRESERVISION AREDS ORAL) Take by mouth daily. Stopped aspirin (CHARISMA CHEWABLE) 81 mg Tablet, Chewable daily. calcium carbonate (CALTRATE) 600 mg (1,500 mg) Tablet Take by mouth daily. multivitamin (DAILY-SONIA) tablet Take 1 Tab by mouth daily. cyanocobalamin (VITAMIN B-12) 250 mcg Tablet Take 250 mcg by mouth daily. coenzyme Q10 Capsule Take 10 mg by mouth daily. No current facility-administered medications for this visit. documented in this encounter Plan of Treatment Upcoming Encounters Date Type Department Care Team (Late st Contact Info) Description 10/18/2024 1:15 PM CDT Office Visit [facility] [address] [place] [address] Chaz Olvera MD [address] [place] [address] [address] [place] [address] documented as of this encounter Visit Diagnoses Not on filedocumented in this encounter Care Teams Delivery Representative Relationship Specialty Start Date End Date Makeda Pillai MD [address] [place] [phone] PCP - General Family Practice 09/08/18 documented as of this encounter
--- OUTSIDE RECORDS SUMMARY | 2024-07-16 11:03 | XMS_ITS | Encounter Summary ---
Author Organization [facility] Address [address] [place] [address] Phone Care Team Providers Care Cylinder Die Machine Helper Name Role Phone Makeda Harris MD Primary Care Provider + [phone] Lizett Ames MD Primary Care Provider [phone] Encounter Details Date Type Department Care Team (Late st Contact Info) Description 06/22/2021 Orders Only [facility] Scanning, Provider Social History Tobacco Use Types Packs/Day Years Used Date Smoking Tobacco: Never Smokeless Tobacco: Never Alcohol Use Standard Drinks/Week Comments Yes 0 (1 standard drink = 0.6 oz pur e alcohol) Comments Unknown Sex and Gender Information Value Date Recorded Sex Assigned at Not on file Legal Sex Female 12:57 AM CLINICAL NUTRITIONIST Gender Identity Not on file Sexual Orientation Not on file documented as of this encounter Plan of Treatment Not on file documented as of this encounter Procedures Procedure Name Priority Date/Time Associated Diagnosis Comments SCAN - RADIOLOGY/IMAGING 06/22/2021 documented in this encounter Results * SCAN - RADIOLOGY/IMAGING (06/22/2021) Anatomical Region Laterality Modality Other us Provider Scanning Final Result documented in this encounter Visit Diagnoses Not on filedocumented in this encounter Care Teams Cylinder Die Machine Helper Relationship Specialty Start Date End Date Makeda Harris MD PCP - General Family Practice 03/24/18 11/08/21 Lizett Ames MD PCP - General Family Medicine 11/09/21 documented as of this encounter
--- OUTSIDE RECORDS SUMMARY | 2024-07-16 11:03 | XMS_ITS | Clinical Summary ---
Author Organization [facility] Address [address] [place] [address] Phone Care Team Providers Care Clinical Consultant Name Role Phone Makeda Pillai MD Primary Care Provi vance Allergies Active Allergy Reactions Criticality Noted Date Comments Nitrofurantoin Monohyd/M-Cryst Anaphylaxis High 01/22 Medications calcium carbonate (CALTRATE) 600 mg (1,500 mg) Tablet Take by mouth daily. Active multivitamin (DAILY-SONIA) tablet Take 1 Tab by mouth daily. Active cyanocobalamin (VITAMIN B-12) 250 mcg Tablet Take 250 mcg by mouth daily. Active coenzyme Q10 Capsule Take 10 mg by mouth daily. Active aspirin (CHARISMA CHEWABLE) 81 mg Tablet, Chewable daily. Active vit A/vit C/vit E/zinc/copper (PRESERVISION AREDS ORAL) Take by mouth daily. Stopped Active LORazepam (ATIVAN) 2 mg tablet Take 10 mg by mouth 3 times daily. Active ZOLEDRONIC ACID-MANNITOL- WATER IV Inject by intravenous injection. Taking once a year.Last dose was on June 07 Active methIMAzole (TAPAZOLE) 5 mg tablet Take 5 mg by mouth daily. Active zoledronic acid (ZOMETA) 4 mg/5 mL Solution Inject by intravenous injection. Active omeprazole (PriLOSEC) 20 mg Capsule, Delayed Release(E.C.) Take 20 mg by mouth 2 times daily. Active diltiaZEM (CARDIZEM CD) 120 mg Controlled Delivery 24 hour capsule Take 1 capsule by mouth once daily 90 Capsule 3 07/28/19 24 Active calcium carbonate + vitamin D (CALTRATE+D) 600 mg-10 mcg (400 unit) Tablet Take 1 Tablet by mouth daily. Active ergocalciferol (VITAMIN D2) 50,000 unit capsule Take 50,000 Units by mouth. 01/02/20 21 Active lisinopriL (PRINIVIL) 20 mg tablet Take 1 tablet by mouth once daily 90 Tablet 1 07/17/19 25 Active lisinopriL (PRINIVIL) 20 mg tablet Take 1 tablet by mouth once daily 90 Tablet 3 07/28/19 24 025 Discontinued Active Problems Patient Care Coordination No te Formatting of this note migh t be different from the original. 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[employer] Shift () Problem Noted Date Diagnosed Date Stage 3 chronic kidney disease 07/10/2021 Atrial tachycardia 09/29/2019 Overview (07/10/2021): Heart monitor 03/11 Nl LV fxn echo 04/12 Hypertension 02/07/2013 Overview (09/29/2019): GERD (gastroesophageal reflux disease) 3 Resolved Problems Problem Noted Date Diagnosed Date Resolved Date Palpitations 02/26/2019 04/14/2020 History of TIA (transient ischemic attack) 02/26/2019 07/10/2021 TIA (transient ischemic attack) 04/15/2013 02/26/2019 Orthostatic hypotension 02/09/201306/22 Overview (02/09/2013): 02/09/2013 Pt had orthostatic hypotension which could have also been contributing to her dizziness. Her orthostatic hypotension was most likely 2/2 to recent URI infection as well as recent diarrhea. She responded well to 500 cc bolus although was still a little orthostatic after that as well. Advised to drink plenty of fluids and not to get up too fast from sitting position. Cough 02/08/2013 04/14/2020 Overview (02/08/2013): 02/08/2013 Dry cough, recent episode of URI. Likely post viral cough Dizziness 02/07/2013 07/10/2021 Overview (02/09/2013): 02/08/2013 Pt admitted with diplopia and dizziness. Neurology Dr. Caldwell consulted. Diplopia was concerning for stroke. Pt started on stroke pathway. CT scan head: neg, MRI Brain- neg for acute events, Echocardiogram-no shunt, CTA H/N neg. a1c WNL and Lipid panel checked with LDL of 113. TSH/B12 checked were normal. Pt did well with PT/OT. Her Sx improved through out the hospital stay. Most likely her Sx were 2/2 labyrinthitis however possibility of stroke could not be completely ruled out as per neurology. Pt will be d/c'ed on event monitor. Also d/c'ed on ASA 81 and lipitor. Pt Meclizine for dizziness. Will follow up with Dr. Caldwell. Anxiety 02/07/2013 04/14/2020 Overview (02/09/2013): 02/09/2013 On paxil and ativan at home. Wants to stop them. Advised to discuss with primary care doctor as weill need tapering. Encounters Date Type Department Care Team Description 07/15/2024 Refill [facility] [place] [address] [facility] [address] [place] [address] Chaz Olvera MD 06/09/2024 External Device Data STL ABSTRACTION Provider, Abstract 05/29/2024 External Device Data STL ABSTRACTION Provider, Abstract 05/28/2024 External Device Data ST[place] ABSTRACTION Provider, Abstract 05/12/2024 External Device Data ST[place] ABSTRACTION Provider, Abstract 04/20/2024 External Device Data STL ABSTRACTION Provider, Abstract from Last 3 Months Immunizations Immunization Administration Dates Next Due (PNEUMOVAX 23)(50 YRS UP) PN EUMOCOCCAL POLYSACCHARIDE (PPV23) 0.5 ML, IM 06/16/2018 (PREVNAR 13)(6 WKS UP) PNEUM OCOCCAL CONJUGATE (PCV13) 0.5 ML, IM 02/07/2010 (SHINGRIX)(50 YRS UP) ZOSTER VACCINE RECOMBINANT, 0.5 ML, IM 06/16/2018,11/08/2017 INFLUENZA VACCINE QUADRIVALENT RECOMB 18 YR UP P F IM 01/02/2020 Influenza Seasonal Unspecified Formulation IM Influenza Vaccine High Dose 65+ Yrs IM 9,12/25/2017 Family History Medical History Relation Name Comments Cancer Father Diabetes Father Hypertension Father Parkinson's Disease Father Stroke Father Cancer Maternal Grandmother Alzheimer's Disease Mother Cancer Paternal Grandfather Stroke Paternal Grandmother Relation Name Status Comments Father Maternal Grandmother Mother Paternal Grandfather Paternal Grandmother Social History Tobacco Use Types Packs/Day Years Used Date Smoking Tobacco: Never Smokeless Tobacco: Never Tobacco Cessation:Counseling Given: Not Answered Alcohol Use Standard Drinks/Week Comments Yes 3.3 (1 standard drink = 0.6 oz p ure alcohol) glass of wine 3 times a week Comments No Sex and Gender Information Value Date Recorded Sex Assigned at Not on file 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 Gender Identity Not on file Sexual Orientation Not on file Occupation Industry Job Start Date Job End Date Not on file Not on file Not on file Not on file Not on file Not on file Not on file Not on file Last Filed Vital Signs Vital Sign Reading Time Taken Comments Blood Pressure 132/76 10/13/2023 1:31 PM CDT Pulse 74 10/13/2023 1:31 PM CDT Temperature 36.6 C (97.9 F) 04/14/2020 11:03 AM 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 DRIER OPERATOR Respiratory Rate 18 02/09/2013 1:46 PM FLASH DRIER OPERATOR Oxygen Saturation 95% 10/13/2023 1:31 PM CDT Inhaled Oxygen Concentration - - Weight 54 kg (119 lb) 10/13/2023 1:31 PM CDT Height 167.6 cm (5' 6 ) 10/13/2023 1:31 PM CDT Body Mass Index 19.21 10/13/2023 1:31 PM CDT Plan of Treatment Upcoming Encounters Date Type Department Care Team (Late st Contact Info) Description 10/18/2024 1:15 PM CDT Office Visit [facility] [address] [place] [id number] Chaz Olvera MD [address] [place] [address] [address] [place] [address] Health Maintenance Due Date Last Done Comments DTAP/TDAP/TD VACCINES (1 - Tdap) 1961 RSV VACCINE (60+ or ) (1 - 1-dose 75+ series) 2017 INFLUENZA VACCINE (#1) 2023 0, 12/22/2018, 12/25/2017, Additional history exists Medicare Advantage ([place]) Preventative Visit/Annual Wellness Visit 03/24/2024 OSTEOPOROSIS SCREENING 03/25/2028 4, 02/18/2022, 02/18/2022, Additional history exists PNEUMOCOCCAL VACCINE 50+ YEARS Completed 06/16/2018 , 02/07/2010 ZOSTER VACCINE Completed 06/16/2018, 11/08/2017 Insurance [employer] PPO MCR RX OPTUM RX Member Subscriber Plan / Payer (Ef fective for All Dates) Name:Alaina Fournier Relation to Subscriber:Self Name:Alaina Fournier Payer ID:Not on file Group ID:[id number] Type:RX Medicare Part D Address: [place] Advance Directives For more information, please contact: [phone] Documents on File Type Date Recorded 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
--- OUTSIDE RECORDS SUMMARY | 2024-07-16 11:03 | XMS_ITS | Referral Summary ---
Author Organization [facility] Address [address] [place] [address] Care Team Providers Care Industrial Organizational Psychologist Name Role Phone Lizett Ames MD Primary Care Provider [phone] Encounters Date Type Department Care Team Description 05/13/2024 2:00 PM CLIP AND HANGER ATTACHER Infusion [address] [place] [phone] Age-related osteoporosis without current pathological fracture (Primary Dx) 05/03/[address] [place] [phone] Carla García RN from Last 3 Months Allergies Active Allergy Reactions Criticality Noted Date [...] 10/15/2021 Assessment & Plan (02/10/2023 12:09 PM CLIP AND HANGER ATTACHER): Follow up TFT today Assessment & Plan [...] 10/15/2021 Assessment & Plan (02/10/2023 12:10 PM CLIP AND HANGER ATTACHER): Benign Plan follow up neck US in [...] clinic Hypertension 02/19/2012 Overview (06/28/2016): Hypertension, Unspecified Social History Tobacco Use Types Packs/Day Years Used Date Smoking Tobacco: Never Smokeless Tobacco: Never Tobacco Cessation:Counseling Given: Not Answered Alcohol Use Standard Drinks/Week Comments Yes 0 (1 standard drink = 0.6 oz pur e alcohol) Comments Unknown Sex and Gender Information Value Date Recorded Sex Assigned at Not on file Legal Sex Female 12:57 AM 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 AND 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 ATTACHER Gender Identity Not on file Sexual Orientation Not on file Last Filed Vital Signs Vital Sign Reading Time Taken Comments Blood Pressure 159/83 05/13/2024 2:13 PM CLIP AND HANGER ATTACHER Pulse 62 05/13/2024 2:13 PM CLIP AND HANGER ATTACHER Temperature 36.5 C (97.7 F) 05/13/2024 2:13 PM CLIP AND HANGER ATTACHER Respiratory Rate 20 05/13/2024 2:13 PM CLIP AND HANGER ATTACHER Oxygen Saturation 97% 05/13/2024 2:13 PM CLIP AND HANGER ATTACHER Inhaled Oxygen Concentration - - Weight 54.3 kg (119 lb 9.6 oz) 04/14/2024 10:44 AM CLIP AND HANGER ATTACHER Height 167.6 cm (5' 6 ) 04/14/2024 10:44 AM CLIP AND HANGER ATTACHER Body Mass Index 19.3 04/14/2024 10:44 AM CLIP AND HANGER ATTACHER Plan of Treatment Not on file Procedures Procedure Name Priority Date/Time Associated Diagnosis Comments DEXA TBS AXIAL SKELETON BONE DENSITY 1 OR MORE SITES Schedule Routine, Read Routine (OP Routine) 04/14/2024 10:46 AM CLIP AND HANGER ATTACHER Age-related osteoporosis without current pathological fracture from Last 3 Months or Most Recently Relevant to Health Maintenance Results * Dexa TBS Axial Skeleton Bone Density 1 or more sites (04/14/2024 10:46 AM CLIP AND HANGER ATTACHER) Anatomical Region Laterality Modality Wrist, Body N/A Radiographic Edwina ging Narrative 04/19/2024 12:11 PM CLIP AND HANGER ATTACHER Patient Name: Alaina Fournier Date of : 1940 Date of scan: 04/14/2024 Bone mineral density was performed on a HoloSyncronex Discovery Densitometer. Based on machine cross-calibration and [...] by the International Society of Clinical Densitometry. [id number] Lukas Olivo MD IMG DXA PROCEDURES Final Result from Last 3 Months or Most Recently Relevant to Health Maintenance Insurance [facility] MEDICARE UHC MEDICARE ADVANTAGE T MEDICARE Care Teams Industrial Organizational Psychologist Relationship Specialty Start Date End Date Lizett Ames MD PCP - General Family Medicine 11/09/21
--- NOTE | 2024-07-16 11:49 | P.CONOP_ITS ---
Assessment and Plan Assessment and plan (1) Intertrochanteric fracture of left hip: Qualifiers: Encounter type: initial encounter Fracture alignment: displaced F racture type: closed Qualified Code(s): S72.142A - Displaced intertrochanteric fracture of left femur, initial encounter for closed fracture Code(s): S72.142A - Displaced intertrochanteric fracture of left femur, initial encounter for closed fracture Status: Acute Assessment and Plan: New patient evaluation for chief complaint fall with left hip injury. History, physical exam and radiographs reviewed with the patient. Left hip intertrochanteric fracture. Discussed the condition, nature, etiology and course of natural history with the patient. Treatment options including surgical and nonoperative treatment were reviewed. Risks and benefits of each as well as alternatives reviewed. The patient's questions were answered. Conservative treatment ice, Pain control, DVT prophylaxis. patient desires operative treatment. Plan Discussed nonoperative and operative treatment options with the patient. Risks and benefits of each as well as alternatives were reviewed. All of the patient's questions were answered. The risks of surgery reviewed including but not limited to: Neurovascular damage, wound complication, infection, blood clot, pulmonary embolus, stroke, myocardial infarction, and anesthetic risks up to and including . Continued pain and possible dysfunction were explained. Specific risks of the procedure including later recurrence of deformity. No guarantees were offered. If hardware used, discussed risk of failure/ breakage and possible need for removal. If complications occur, the patient understands the need for further treatment, possible further surgery. Patient verbalizes understanding and wishes to proceed. PLAN: Left hip reduction and fixation with trochanteric nail History of Present Illness HPI Consult date: 07/16/24 Requesting physician: Robbi Lai MD Consult reason: fracture (Left hip) Chief complaint: left hip fracture Narrative: 84-year-old woman who fell and tripped at home onto left side. Unable to bear weight. Was brought to the emergency room and found to have left hip fracture. Complains of pain left hip. Worse with movement. Denies numbness or tingling. Denies head neck or back injury at the time of her fall. Denies loss of consciousness. No prior problems with the hip. Review of Systems 2 Constitutional: Constitutional: Denies fever(s) Eyes: Eyes: Denies blurry vision ENT: Reports Normal hearing present Cardiovascular: Cardiovascular: Denies chest pain and Denies dyspnea Respiratory: Respiratory: Denies dyspnea and Denies wheezing Gastrointestinal: Gastrointestinal: Denies abdominal pain Genitourinary: Genitourinary: Denies urinary urgency Musculoskeletal: Musculoskeletal: Reports as per HPI and Denies numbness Integumentary/Breasts: Skin/Breast: Denies changing lesions and Denies sores Neurologic: Reports Normal hearing present, Denies behavioral changes, Denies confusion, Denies numbness and Denies convulsions Psychiatric: Psychiatric: Denies behavioral changes, Denies confusion and Denies hallucinations Endocrine: Endocrine: Denies heat intolerance Hematologic/Lymphatic: Hematologic/Lymphatic: Denies easy bleeding Allergic/Immunologic: Allergic/Immunologic: Denies wheezing PMFSH Past Medical History Medical History (Updated 07/16/24 @ 12:46 by Lyn Durham APRN) 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 Hemorrhoids Diverticulosis GERD (gastroesophageal reflux disease) Thyroid Nodule Dysphagia Intertrochanteric fracture of left hip Nausea TIA (transient ischemic attack) Hypertension Surgical History Surgical History Hx of hysterectomy Family History Family History Father Hypertension Family history of pancreatic cancer Grandparent Carcinoma of colon Mother Family history of Alzheimer's disease Social History Social History Smoking status: Never smoker Second hand tobacco smoke exposure: No Alcohol intake: current Drinks per week: 2 Alcohol use details: occasionally wine Substance use: never Substance use type: does not use Living arrangements: with family Additional living arrangements comments: 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 Occupation/Education: retired Gender identity (if verbalized by the patient): Female Spiritual care concerns: No Meds Home Medications and Allergies Home Medications ?Medication ?Instructions ?Recorded ?Confirmed ?Type aspirin 81 mg tablet,delayed 81 mg PO DAILY 09/23/19 01/26/24 History release (Adult Low Dose Aspirin) diltiazem HCl 120 mg 120 mg PO DAILY 09/23/19 01/26/24 History capsule,extended release 24 hr calcium carbonate (Calcium 500) 2,500 mg PO DAILY 10/27/20 01/26/24 History cholecalciferol (vitamin D3) 50 50 mcg PO DAILY 10/27/20 01/26/24 History mcg (2,000 unit) capsule coenzyme Q10 50 mg capsule (Co 50 mg PO DAILY 10/27/20 01/26/24 History Q-10) lisinopril 20 mg tablet 20 mg PO DAILY #30 tabs 10/27/20 01/26/24 Rx multivitamin 1 tablet PO DAILY 10/27/20 01/26/24 History omega-3 360 lo-uhl-gzf-fish oil 1 cap PO DAILY 10/27/20 01/26/24 History 1,200 mg capsule,delayed release (Fish Oil) vit C 250 mg-vit E 90 mg-zinc 40 1 tablet PO BID 10/27/20 01/26/24 History mg-copper 1 ge-vjvgzd-thgxlf capsule (PreserVision AREDS-2) vitamin E 200 unit capsule 200 unit PO DAILY 10/27/20 01/26/24 History ergocalciferol (vitamin D2) 1,250 1,250 mcg PO WEEKLY #12 caps 10/30/20 01/26/24 Rx mcg (50,000 unit) capsule (Vitamin D2) methimazole 5 mg tablet 2.5 mg PO DAILY 05/08/22 01/26/24 History urinal #1 ea 08/26/23 01/26/24 Rx omeprazole 20 mg capsule,delayed 20 mg PO BID #60 caps 04/09/24 Rx release escitalopram oxalate 10 mg tablet 10 mg PO DAILY #30 tabs 05/16/24 Rx lorazepam 1 mg tablet 1 mg PO TID PRN anxiety #90 tabs 06/21/24 Rx Allergies Allergy/AdvReac Type Severity Reaction Status Date / Time nitrofurantoin Allergy Unknown Unknown Verified 06/21/24 10:15 Vital Signs Vital Signs - 24 hr 07/16/24 09:58 07/16/24 10:39 07/16/24 11:32 Temperature 97.9 F 97.8 F 97.8 F Pulse Rate 86 78 74 Respiratory Rate 16 13 17 Blood Pressure 166/91 H 171/94 H 166/78 H Pulse Oximetry 100 96 100 Oxygen Delivery Room Air Exam 2 Const: General: No confusion Orientation/consciousness: No confusion HENMT: Head: normal to inspection, normocephalic and atraumatic Eyes: Conjunctivae: conjunctivae normal Sclera: sclerae normal Neck: Neck: supple and nontender Chest: Chest palpation & inspection: normal inspection of the chest Resp: Effort & Inspection: normal respiratory effort and no audible wheezes Cardio: Rate: regular rate Rhythm: regular rhythm : General: Yes deferred Skin: General skin exam: no rashes or lesions noted Neuro: General: No confusion Extrem: General: capillary refill normal Right upper extremity: normal to inspection Left upper extremity: normal to inspection Right lower extremity: normal to inspection, hip/thigh Details: normal to inspection and normal ROM; no tenderness and no swelling, knee Details: no tenderness and no swelling, ankle Details: normal ROM (Able to flex and extend the ankle) and foot Details: vascular exam Details: dorsalis pedis pulse present and normal capillary refill, tendon exam (Moves all toes) and motor-sensory exam Details: light-touch normal Location: in all toes Left lower extremity: hip/thigh Details: tenderness Location: of the hip Location: laterally and anteriorly, swelling Location: of the hip and abnormal ROM Details: pain with passive ROM (Full motion deferred secondary to fracture) Details: with flexion, with internal rotation and with external rotation, ankle (no calf tenderness) Details: normal ROM (Able to flex/ extend ankle) and foot Details: toes with normal ROM (Moves all toes), vascular exam Details: dorsalis pedis pulse present and normal capillary refill and motor-sensory exam light-touch normal in all toes; no tenderness Psych: Affect: normal affect Results Labs 07/16/24 10:21 07/16/24 10:21 Labs: Abnormal lab results 07/16/24 Range/Units 10:21 MCHC 31.7 L (32-36) g/dl Kimball % (Auto) 8.7 H (2.6-8.5) % BUN 26 H (7-17) mg/dL Estimated GFR 57 L (59 - ) H & H 07/16/24 Range/Units 10:21 Hgb 12.3 (12.0-15.0) g/dL Hct 38.8 (37.0-47.0) % Coagulation 07/16/24 Range/Units 10:21 INR 0.9 All other labs normal. Diagnostic results Hip x-ray: image reviewed ( Comminuted subtrochanteric fracture/ intertrochanteric fracture left hip. Femoral head located.)
[2024-07-16] MEDS: LACTATED RINGERS 1,000 ML 125 ML IV CONT (12:26)
--- NOTE | 2024-07-16 12:32 | PM.IMHP ---
H&P: HPI History of Present Illness Date/Time: 07/16/24 12:32 Chief Complaint: Fall Narrative: 84 y/o F with PMH of TIA, HTN, GERD, dysphagia, and anxiety presents here for evaluation post fall. The patient presents here from home for further evaluation of left hip pain S/P ground level, mechanical fall. She reports that she tripped over a rug and fell onto her left side. She denies head strike or loss of consciousness. She was unable to sit up, stand up, or ambulate post fall. She denies focal numbness or focal weakness to her lower extremities. She is not currently on anticoagulation. Postoperatively she denies nausea or significant pain. At baseline, the patient ambulates independently. Initial VS at presentation: 97.9? F, HR 86, RR 16, 166/91, and 100% on RA. ED workup showed: No leukocytosis, no anemia, no significant electrolyte derangements, creatinine 0.94 and GFR 57 (at baseline). Hip/pelvic XR showed an acute comminuted significantly displaced and angulated intertrochanteric fracture of the proximal left femur. CXR showed clear lungs and cardiomegaly. 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 Hemorrhoids Diverticulosis GERD (gastroesophageal reflux disease) Thyroid Nodule Dysphagia Intertrochanteric fracture of left hip Nausea TIA (transient ischemic attack) Hypertension Surgical History Surgical History Hx of hysterectomy Family History Family History Father Hypertension Family history of pancreatic cancer Grandparent Carcinoma of colon Mother Family history of Alzheimer's disease Social History Social History Smoking status: Never smoker Second hand tobacco smoke exposure: No Alcohol intake: current Drinks per week: 1 Alcohol use details: occasionally wine Substance use: never Substance use type: does not use Do You Feel Safe in your Home?: Yes Lack of Transportation: No Lack of Food: Never True Current Housing: I Have Housing Concerned About Future Housing: No Difficulty Paying Gas/Electric Bills: No Difficulty Paying for Meds: No Currently Unemployed: No Education: Master's Degree or Higher Difficulty w/ Childcare or Family Care: No Living arrangements: with family Additional living arrangements comments: 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 Gender identity (if verbalized by the patient): Female Spiritual care concerns: No Meds Home Medications and Allergies Home Medications ?Medication ?Instructions ?Recorded ?Confirmed ?Type aspirin 81 mg tablet,delayed 81 mg PO DAILY 09/23/19 07/16/24 History release (Adult Low Dose Aspirin) diltiazem HCl 120 mg 120 mg PO DAILY 09/23/19 07/16/24 History capsule,extended release 24 hr calcium carbonate (Calcium 500) 2,500 mg PO DAILY 10/27/20 07/16/24 History cholecalciferol (vitamin D3) 50 50 mcg PO DAILY 10/27/20 07/16/24 History mcg (2,000 unit) capsule coenzyme Q10 50 mg capsule (Co 50 mg PO DAILY 10/27/20 07/16/24 History Q-10) lisinopril 20 mg tablet 20 mg PO DAILY #30 tabs 10/27/20 07/16/24 Rx multivitamin 1 tablet PO DAILY 10/27/20 07/16/24 History vitamin E 200 unit capsule 200 unit PO DAILY 10/27/20 07/16/24 History ergocalciferol (vitamin D2) 1,250 1,250 mcg PO WEEKLY #12 caps 10/30/20 07/16/24 Rx mcg (50,000 unit) capsule (Vitamin D2) methimazole 5 mg tablet 2.5 mg PO DAILY 05/08/22 07/16/24 History omeprazole 20 mg capsule,delayed 20 mg PO BID #60 caps 04/09/24 07/16/24 Rx release lorazepam 1 mg tablet 1 mg PO Q12H anxiety 07/16/24 07/16/24 History Allergies Allergy/AdvReac Type Severity Reaction Status Date / Time nitrofurantoin Allergy Unknown Unknown Verified 07/16/24 16:31 Vital Signs Vital Signs - 24 hr 07/16/24 09:58 07/16/24 10:39 07/16/24 11:32 Temperature 97.9 F 97.8 F 97.8 F Pulse Rate 86 78 74 Respiratory Rate 16 13 17 Blood Pressure 166/91 H 171/94 H 166/78 H Pulse Oximetry 100 96 100 Oxygen Delivery Room Air Exam Const: General: comfortable and no acute distress Other: , female, elderly, nontoxic appearance. HENMT: Face/Nose/Sinus: Normal nares present Mouth: Yes moist mucous membranes Eyes: General: appearance normal, both eyes and all related structures Sclera: sclerae normal Pupils: Equal, round and reactive pupils present EOM: EOMs intact bilaterally Resp: Effort & Inspection: normal respiratory effort Auscultation: clear to auscultation bilaterally Cardio: Rate: regular rate Rhythm: regular rhythm Other: S1-S2 present without murmur, rub, ectopy GI: Other: Abdomen soft, nondistended, nontender. Normoactive bowel sounds in all quadrants. Urinary Catheter: Urinary Catheter: patent and draining Skin: General skin exam: normal color and no rashes or lesions noted Other: Postoperative incision to left lateral hip. Dressing CDI. Minimal edema. No bleeding, erythema, or drainage. Neuro: Speech: normal speech Motor exam (neuro): 5/5 motor strength present throughout Sensory Exam: normal sensation Other: A&O x4. Extrem: General: normal to inspection Other: DP 2+ bilaterally Psych: Mental Status: mental status grossly normal Affect: normal affect Other: Good insight and judgment, very pleasant H&P: Results Labs Labs: Short CBC 07/16/24 Range/Units 10:21 WBC 6.7 (4.5-10.0) K/mm3 Hgb 12.3 (12.0-15.0) g/dL Hct 38.8 (37.0-47.0) % Plt Count 225 (150-375) k/mm3 BMP 07/16/24 10:21 Sodium 140 Potassium 4.4 Chloride 107 Carbon Dioxide 28 BUN 26 H Creatinine 0.94 Glucose 100 Calcium 9.4 Liver Function 07/16/24 Range/Units 10:21 Total Bilirubin 0.6 (0.2-1.3) mg/dL AST 27 (14-36) U/L ALT 21 (6-35) U/L Alkaline Phosphatase 78 (38-126) U/L Albumin 4.1 (3.5-5.1) g/dL Assessment and Plan Assessment and plan (1) Intertrochanteric fracture of left hip: Qualifiers: Encounter type: initial encounter Fracture alignment: displaced Fracture type: closed Qualified Code(s): S72.142A - Displaced intertrochanteric fracture of left femur, initial encounter for closed fracture Code(s): S72.142A - Displaced intertrochanteric fracture of left femur, initial encounter for closed fracture Status: Acute Assessment and Plan: Hip/pelvic XR, 07/16: Acute, comminuted, significantly displaced and angulated intertrochanteric fracture of the proximal left femur. Orthopedics consulted, Jose Armando [place]. discussed operative versus conservative management with the patient, patient would like to proceed with surgical management. Underwent a trochanteric intramedullary nail, left hip on 07/16. No immediate postop complaints. Denies significant nausea or pain. Analgesics p.r.n. Bed rest -> PT/OT evaluation and treatment postsurgery. Care coordination consulted for rehab Monitor labs. (2) Hyperthyroidism: Code(s): E05.90 - Thyrotoxicosis, unspecified without thyrotoxic crisis or storm Status: Chronic Assessment and Plan: Continue home medication: Methimazole 2.5 mg daily (3) Hypertension: Qualifiers: Hypertension type: primary hypertension Qualified Code(s): I10 - Essential (primary) hypertension Code(s): I10 - Essential (primary) hypertension Status: Chronic Assessment and Plan: Chronic, currently 168/80. Continue home medications: Lisinopril, diltiazem Monitor. Plan Diet: NPO GI Prophylaxis: Not currently indicated DVT Prophylaxis: SCDs IV fluids: LR 125 mL/hr Lines/Tubes: Peripheral IV Code Status: Full code Quality VTE Prophylaxis VTE prophylaxis: mechanical ordered Hospitalist [facility] Advance Care Plan I have confirmed that the patient's Advanced Care Plan is present, code status is documented, or surrogate decision maker is listed in patient medical record.: Yes Medication Reconciliation I have utilized all available resources to obtain, update and review the patients current medications (includes all prescriptions, OTC, herbals, cannabis, and nutritional supplements).: Yes
--- NOTE | 2024-07-16 13:29 | WPDHPUPDATE1 ---
History and Physical Update Update Date/Time: 07/16/24 13:29 History and Physical has been reviewed, including an updated exam of the patient. There are NO changes in the patient's condition. Risks, benefits, and alternatives have been discussed and questions answered. Patient agrees to proceed with procedure.
[2024-07-16] MEDS: LACTATED RINGERS 1,000 ML 30 ML IV CONT (13:30)
--- NOTE | 2024-07-16 13:30 | P.PNAN_ITS ---
Anes - Initial Pre Proc Eval Procedure: Operation Date: 07/16/24 14:00 Proposed Procedures p Left Intertrochanteric Nail - Alvarado Suárez MD Date/Time: 07/16/24 13:30 Surgeon: Juanito Quinteros MD Pre Op Diagnosis: left hip fracture Patient Data Age: 84 Gender: F Height: 1.68 m Weight: 59 kg Last Vital Signs Temp 36.6 C 07/16/24 12:15 Pulse 80 07/16/24 12:15 Resp 16 07/16/24 12:15 BP 168/80 H 07/16/24 12:15 Pulse Ox 100 07/16/24 12:15 O2 Del Method Room Air 07/16/24 09:58 Allergies Allergy/AdvReac Type Severity Reaction Status Date / Time nitrofurantoin Allergy Unknown Unknown Verified 06/21/24 10:15 Home Medications ?Medication ?Instructions ?Recorded ?Confirmed ?Type aspirin 81 mg tablet,delayed 81 mg PO DAILY 09/23/19 01/26/24 History release (Adult Low Dose Aspirin) diltiazem HCl 120 mg 120 mg PO DAILY 09/23/19 01/26/24 History capsule,extended release 24 hr calcium carbonate (Calcium 500) 2,500 mg PO DAILY 10/27/20 01/26/24 History cholecalciferol (vitamin D3) 50 50 mcg PO DAILY 10/27/20 01/26/24 History mcg (2,000 unit) capsule coenzyme Q10 50 mg capsule (Co 50 mg PO DAILY 10/27/20 01/26/24 History Q-10) lisinopril 20 mg tablet 20 mg PO DAILY #30 tabs 10/27/20 01/26/24 Rx multivitamin 1 tablet PO DAILY 10/27/20 01/26/24 History omega-3 360 [id number]-fish oil 1 cap PO DAILY 10/27/20 01/26/24 History 1,200 mg capsule,delayed release (Fish Oil) vit C 250 mg-vit E 90 mg-zinc 40 1 tablet PO BID 10/27/20 01/26/24 History mg-copper 1 [id number] capsule (PreserVision AREDS-2) vitamin E 200 unit capsule 200 unit PO DAILY 10/27/20 01/26/24 History ergocalciferol (vitamin D2) 1,250 1,250 mcg PO WEEKLY #12 caps 10/30/20 01/26/24 Rx mcg (50,000 unit) capsule (Vitamin D2) methimazole 5 mg tablet 2.5 mg PO DAILY 05/08/22 01/26/24 History urinal #1 ea 08/26/23 01/26/24 Rx omeprazole 20 mg capsule,delayed 20 mg PO BID #60 caps 04/09/24 Rx release escitalopram oxalate 10 mg tablet 10 mg PO DAILY #30 tabs 05/16/24 Rx lorazepam 1 mg tablet 1 mg PO TID PRN anxiety #90 tabs 06/21/24 Rx Laboratory Tests 07/16/24 10:21 WBC 6.7 K/mm3 (4.5-10.0) RBC 4.31 M/mm3 (4.2-5.4) Hgb 12.3 g/dL (12.0-15.0) Hct 38.8 % (37.0-47.0) MCV 90.0 fl (80-100) MCH 28.5 pg (26-34) MCHC 31.7 L g/dl (32-36) RDW 13.3 % (11.5-14.5) Plt Count 225 k/mm3 (150-375) MPV 10.1 fl (7.4-10.4) Immature Gran % (Auto) 0.2 % (0-0.5) Neut % (Auto) 60.2 % (45.5-73.1) Lymph % (Auto) 26.5 % (18.3-44.2) Kaufman % (Auto) 8.7 H % (2.6-8.5) Eos % (Auto) 3.6 % (0-4.4) Baso % (Auto) 0.8 % (0.2-1.2) Lymph # (Auto) 1.76 K/mm3 (0.9-3.2) Kaufman # (Auto) 0.6 K/mm3 (0.1-0.6) Eos # (Auto) 0.2 K/mm3 (0-0.3) Baso # (Auto) 0.1 K/mm3 (0.0-0.1) Abs Immat Gran (auto) 0.01 K/mm3 (0.00-0.031) Absolute Neuts (auto) 4.0 K/mm3 (1.3-6.7) Absolute Nucleated RBC 0.000 K/mm3 (0.0-0.012) Nucleated RBC % 0.0 % (0.0-0.2) PT 12.9 Seconds (11.1-14.7) INR 0.9 APTT 25.0 Seconds (22.3-36.8) Sodium 140 mmol/L (137-145) Potassium 4.4 mmol/L (3.4-5.0) Chloride 107 mmol/L (98-107) Carbon Dioxide 28 mmol/L (22-30) Anion Gap 5 mmol/L (4-12) BUN 26 H mg/dL (7-17) Creatinine 0.94 mg/dL (0.7-1.0) Estim Creat Clear Calc 38 ml/min Estimated GFR 57 L (59 - ) Glucose 100 mg/dL (65-110) Calcium 9.4 mg/dL (8.4-10.2) Total Bilirubin 0.6 mg/dL (0.2-1.3) AST 27 U/L (14-36) ALT 21 U/L (6-35) Alkaline Phosphatase 78 U/L (38-126) Total Protein 7.0 g/dL (6.3-8.2) Albumin 4.1 g/dL (3.5-5.1) Blood Type O Positive Antibody Screen Negative Patient hx anesthesia problems: none Family hx anesthesia problems: none Results Review: All pre-operative results and documents have been reviewed as part of the pre- operative evaluation. 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 Hemorrhoids Diverticulosis GERD (gastroesophageal reflux disease) Thyroid Nodule Dysphagia Intertrochanteric fracture of left hip Nausea TIA (transient ischemic attack) Hypertension Surgical History Surgical History Hx of hysterectomy Family History Family History Father Hypertension Family history of pancreatic cancer Grandparent Carcinoma of colon Mother Family history of Alzheimer's disease Social History Social History Smoking status: Never smoker Second hand tobacco smoke exposure: No Alcohol intake: current Drinks per week: 2 Alcohol use details: occasionally wine Substance use: never Substance use type: does not use Living arrangements: with family Additional living arrangements comments: 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 Informed Consent: The patient's anesthetic plan and its attendant risks and benefits were discussed with the patient/family/POA. Questions were solicited and answers provided to the satisfaction of the patient/family/POA.
[2024-07-16] MEDS: TRANEXAMIC ACID 1,000MG/ISO100 1,000 MG/100 ML BAG 200 MG IVPB (13:32)
[2024-07-16] MEDS: KETOROLAC 15 MG/ML VIAL (*BKC) IV PUSH (13:32)
[2024-07-16] MEDS: ceFAZolin 2 GM/D5W 50 ML 2 GM/50 ML BAG IVPB ×2 (13:40→22:19)
[2024-07-16] MEDS: BUPIVACAINE/EPINEPHRINE 0.5% 50 ML VIAL 20 ML INFILTRATE (14:15)
--- NOTE | 2024-07-16 14:55 | P.OP_ITS ---
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 Presents for operative treatment. Description of Procedure After informed consent the operative extremity was marked in the preoperative holding area. Patient received intravenous antibiotics. The patient was taken to the operative room, placed in the supine position, general anesthesia induced by the anesthesia team, and was placed on a fracture table with longitudinal traction applied to the left leg. The hip fracture was reduced to near anatomic position and verified with image intensification. A time-out was performed confirming the patient, site of the surgery and plan. The left lower extremity was prepped and draped sterilely from the knee to the iliac crest region using a ChloraPrep skin solution. Incision was made just proximal to greater trochanter down to the subcutaneous tissues. Hemostasis controlled with electrocautery. Blunt dissection through the fascia to the tip of the greater trochanter. A starter awl was placed at the tip of the greater trochanter into the medullary canal of the femur. This was checked with image intensification and was in good position. Intramedullary guide deborah positioned. A one-step hand reaming done proximally. Intramedullary canal was reamed with a 12.5 millimeter flexible reamer. Measuring was then performed off of the guide deborah. Neck angle selected off of preoperative radiographs temp plating. 130 degree 11 X 390 mm Nail opened on the back table and assembled. This was then inserted over the guide deborah to the correct depth. Guide deborah removed. Lag screw was then placed with a stab incision over the lateral femur using a 10 blade knife. Blunt dissection down to the lateral side of the bone. Soft tissue protectors placed. Guide pin placed in the center center position of the femoral head and measured. 85 millimeter x 10 millimeter lag screw placed to correct depth and verified with image intensification. Traction released from the leg and compression of the fracture performed with the external compression device. Proximal locking done with internal device. Distal locking of the nail necessary due to instability in the intramedullary canal and proximal femur. Stab incision made lateral distal thigh. Blunt dissection down lateral side of the femur. Image intensification used to position. Soft tissue drill guide placed and drill used from lateral to medial. Measured and appropriate screw size screw placed. Image intensification confirmed the placement through the locking hole. Final image intensification confirm reduction of the fracture and placement of the hardware. Wounds then thoroughly irrigated with antibiotic solution. Fascia repaired with 0 Vicryl interrupted suture. Subcutaneous tissue repaired with 00 Vicryl interrupted suture and skin repaired with subcuticular 3-0 Monocryl and Dermabond. Sterile dressings applied. Patient then awoke from anesthesia, extubated, taken to recovery room stable condition. All sponge, needle and instrument counts correct at the end the case. Implants Arthrex trochanteric nail 11 x 390 mm the 130 degree angle, 85 x 10 mm lag screw 36 by 4.5 mm locking screw Estimated Blood Loss 100 Drains No Packing No Pathology None sent Complications None Condition Stable Disposition PACU [facility] Billing Surgery - Charge Forward: Surgery Billing ([id number])
--- NOTE | 2024-07-16 16:30 | ADMGEN ---
This patient, Alaina Torres, was admitted to 2 Medical Room 244-. Patient/family oriented to hospital policies and general routines including ID bracelet, bed and alarms, visiting hours, pain management, procedures, bathroom and other care routines, personal items, smoking policy, room service/diet, and visiting hours. Information on how to activate the Rapid Response Team has been discussed. Patient/Family are encouraged to report perceived risks to care and to ask questions if they do not understand what they are told or what they should do.
[2024-07-16] MEDS: SENNA/DOCUSATE SODIUM TABLET 2 TAB PO (17:16)
[2024-07-16 17:21] LABS: Add Urine Microscopic? YES; Appearance Urine Cloudy (Clear); Bacteria Urine None Seen /hpf; Bilirubin Urine Negative (Negative); Blood Urine Negative (Negative); Color Urine Yellow (Yellow); Glucose Urine UA Negative (Negative); Ketones Urine 1+ mg/dL (Negative); Leukocyte Esterase Ur Negative LEU/UL (Negative); Nitrate Urine Negative (Negative); Non Pathogenic Casts 0-2; Protein Urine 1+ mg/dL (Negative); Specific Grav Ur 1.021 (1.001-1.035); Squamous Epithelial Cell Urine None Seen /hpf (Few); Urobilinogen Urine 0.2 mg/dL (<2.0); WBC Urine 0-5 /hpf (0-3); pH Urine 6.5 (5.0-9.0)
[2024-07-16] MEDS: LORazepam (*CRX) 1 MG TABLET PO (17:55)
[2024-07-16] MEDS: PANTOPRAZOLE 40 MG TABLET PO (22:16)
[2024-07-16] MEDS: ASPIRIN 325 MG ENTERIC TABLET PO (22:17)
[2024-07-16] MEDS: ACETAMINOPHEN 325 MG TABLET 650 MG PO (22:26)
[2024-07-17] VITALS (9 sets, daily range): BP systolic 104–130; BP diastolic 55–72; PULSE 68–108; RESP 16–17; TEMP 36.4–37; O2SAT 96–100
[2024-07-17 04:47] LABS: Basophils Percent Auto 0.2 % (0.2-1.2); Hematocrit 30.9 % (37.0-47.0); Hemoglobin 9.7 g/dL (12.0-15.0); Immature Granulocyte Absolute 0.04 K/mm3 (0.00-0.031); Immature Granulocyte Percent A 0.4 % (0-0.5); Lymphocytes Percent Auto 6.5 % (18.3-44.2); Mean Corpuscular HGB Conc 31.4 g/dl (32-36); Mean Corpuscular Hemoglobin 28.6 pg (26-34); Mean Corpuscular Volume 91.2 fl (80-100); Monocytes Absolute Auto 0.8 K/mm3 (0.1-0.6); Monocytes Percent Auto 8.8 % (2.6-8.5); Neutrophils Absolute Auto 7.7 K/mm3 (1.3-6.7); Neutrophils Percent Auto 84.1 % (45.5-73.1); Platelet Count Result 189 k/mm3 (150-375); Red Blood Count 3.39 M/mm3 (4.2-5.4); Red Cell Distribution Width 13.2 % (11.5-14.5); White Blood Count 9.2 K/mm3 (4.5-10.0)
[2024-07-17 04:59] LABS: Anion Gap 7 mmol/L (4-12); Blood Urea Nitrogen 34 mg/dL (7-17); Calcium 8.2 mg/dL (8.4-10.2); Carbon Dioxide 27 mmol/L (22-30); Chloride 104 mmol/L (98-107); Estimated CRCL calculation 31 ml/min; Estimated Glomerular Filt Rate 45; Glucose 139 mg/dL (65-110); Potassium 4.5 mmol/L (3.4-5.0); Sodium 138 mmol/L (137-145)
[2024-07-17] MEDS: ceFAZolin 2 GM/D5W 50 ML 2 GM/50 ML BAG IVPB ×2 (06:07→14:22)
[2024-07-17] MEDS: lisinopriL 20 MG TABLET PO (08:20)
[2024-07-17] MEDS: CALCIUM CARBONATE (OSCAL) 500 MG TABLET 1000 MG PO (08:20)
[2024-07-17] MEDS: CHOLECALCIFEROL 1,000 UNITS TABLET 2000 UNITS PO (08:21)
[2024-07-17] MEDS: HYDROcodone/acetaminophen (*CRX) 5-325 MG TABLET 1 TAB PO ×3 (08:21→21:26)
[2024-07-17] MEDS: PANTOPRAZOLE 40 MG TABLET PO ×2 (08:21→21:27)
[2024-07-17] MEDS: LORazepam (*CRX) 1 MG TABLET PO ×2 (08:22→17:28)
[2024-07-17] MEDS: VITAMIN E 100 UNIT CAPSULE 200 UNIT PO (08:22)
[2024-07-17] MEDS: MULTIVITAMINS THERAPEUTIC TAB (*BKC) 1 TABLET PO (08:23)
[2024-07-17] MEDS: dilTIAZem HCL CD 120 MG CAP.24HR PO (08:23)
[2024-07-17] MEDS: SENNA/DOCUSATE SODIUM TABLET 2 TAB PO ×2 (08:23→17:28)
[2024-07-17] MEDS: ASPIRIN 325 MG ENTERIC TABLET PO ×2 (08:23→21:27)
[2024-07-17] MEDS: polyethylene glycoL 3350 17 GM POWD.PACK PO (08:28)
--- NOTE | 2024-07-17 09:21 | P.PNOP_ITS ---
Progress Note: A&P Assessment and Plan (1) Intertrochanteric fracture of left hip: Qualifiers: Encounter type: subsequent encounter Fracture type: closed Fracture alignment: displaced Fracture healing: with routine healing Qualified Code(s): S72.142D - Displaced intertrochanteric fracture of left femur, subsequent encounter for closed fracture with routine healing Code(s): S72.142A - Displaced intertrochanteric fracture of left femur, initial encounter for closed fracture Status: Acute Assessment and Plan: Postoperative day 1 left hip fracture trochanteric nail. Details of surgery reviewed with the patient. Pain control. PT/OT with weight-bearing as tolerated. Follow labs. Aspirin for DVT prophylaxis. Patient indicated for acute rehab once medically stable for ambulation, strength, gait Subjective Subjective Date/Time Seen: 07/17/24 09:21 Post Op day: 1 Principal diagnosis: Left hip intertrochanteric fracture Interval history: AWake and alert. Sitting up in bed. Some pain left hip. Denies numbness or tingling. Exam Const: General: comfortable; No acute distress Resp: Effort & Inspection: normal respiratory effort and no audible wheezes Extrem: Right lower extremity: lower leg ( Negative Homans sign), ankle Details: normal ROM ( dorsiflexion and plantar flexion intact) and foot Details: vascular exam Details: dorsalis pedis pulse present and normal capillary refill, tendon exam Details: active flexion normal and active extension normal and motor-sensory exam Details: light-touch normal Location: in all toes; no edema Left lower extremity: normal to inspection, hip/thigh (Dressing clean dry and intact, muscle soft), ankle Details: normal ROM and foot Details: abnormal to inspection Details: other (Ecchymosis lateral ankle and hindfoot, mild swellin g), vascular exam Details: dorsalis pedis pulse present and normal capillary refill and motor-sensory exam light-touch normal in all toes; no edema Objective Data Vital Signs Vital Signs: Vital Signs - 24 hr 07/16/24 09:58 07/16/24 10:39 07/16/24 11:32 Temperature 97.9 F 97.8 F 97.8 F Pulse Rate 86 78 74 Respiratory Rate 16 13 17 Blood Pressure 166/91 H 171/94 H 166/78 H Pulse Oximetry 100 96 100 Oxygen Delivery Room Air Oxygen Flow Rate 07/16/24 12:15 07/16/24 13:34 07/16/24 14:59 Temperature 97.8 F 99.6 F 98.3 F Pulse Rate 80 52 L 103 H Respiratory Rate 16 20 Blood Pressure 168/80 H 174/94 H 151/109 H Pulse Oximetry 100 100 99 Oxygen Delivery Simple Face Mask Oxygen Flow Rate 8 07/16/24 15:10 07/16/24 15:25 07/16/24 15:40 Temperature Pulse Rate 94 88 83 Respiratory Rate 15 16 16 Blood Pressure 170/92 H 150/78 H 150/81 H Pulse Oximetry 95 96 100 Oxygen Delivery Simple Face Mask Nasal Cannula Room Air Oxygen Flow Rate 8 2 07/16/24 16:00 07/16/24 16:20 07/16/24 16:33 Temperature 98.2 F 97.9 F Pulse Rate 89 89 83 Respiratory Rate 18 18 18 Blood Pressure 141/70 H 144/64 H 147/71 H Pulse Oximetry 98 100 100 Oxygen Delivery Room Air Oxygen Flow Rate 07/16/24 18:05 07/16/24 20:33 07/17/24 00:30 Temperature 98.3 F 97.6 F 98.0 F Pulse Rate 71 81 77 Respiratory Rate 18 17 16 Blood Pressure 146/73 H 137/70 109/67 Pulse Oximetry 100 100 100 Oxygen Delivery Oxygen Flow Rate 07/17/24 04:33 07/17/24 08:22 07/17/24 08:33 Temperature 98.6 F 98 F Pulse Rate 73 70 Respiratory Rate 17 17 Blood Pressure 112/67 120/68 Pulse Oximetry 99 98 99 Oxygen Delivery Room Air Oxygen Flow Rate Intake/Output Intake/Output: Intake & Output 07/14/24 07/15/24 07/16/24 07/17/24 23:59 23:59 23:59 23:59 Intake Total 623 200 Output Total 100 200 Balance 523 0 Meds/Results Medications: Active Medications Generic Name Dose Route Start Last Admin Trade Name Freq PRN Reason Stop Dose Admin Acetaminophen 650 mg 07/16/24 14:48 07/16/24 22:26 Acetaminophen 325 Mg Tablet PO 650 mg Q6HR PRN Administration Pain or Fever Hydrocodone Bitart/Acetaminophen 1 tab 07/16/24 14:48 07/17/24 08:21 Hydrocodone/Acetaminophen (*Crx) 5-325 Mg Tablet PO 1 tab Q4H PRN Administration Pain Rated 4-6 Aspirin 325 mg 07/16/24 21:00 07/17/24 08:23 Aspirin 325 Mg Enteric Tablet PO 325 mg Q12HR [facility]BER Administration Bismuth Subsalicylate 524 mg 07/16/24 17:18 Bismuth Subsalicylate 262 Mg Chewable Tablet PO Q1H PRN Indigestion Calcium Carbonate 1,000 mg 07/17/24 09:00 07/17/24 08:20 Calcium Carbonate (Oscal) 500 Mg Tablet PO 1,000 mg DAILY [facility]BER Administration Diltiazem HCl 120 mg 07/17/24 09:00 07/17/24 08:23 Diltiazem Hcl Cd 120 Mg Cap.24hr PO 120 mg DAILY [facility] Administration Hydromorphone HCl 1 mg 07/16/24 15:02 Hydromorphone Hcl Inj (*Crx) 2 Mg/Ml Vial IV PUSH Q2H PRN Breakthrough Pain Rated 7-10 or NPO Hydromorphone HCl 0.5 mg 07/16/24 15:02 Hydromorphone Hcl Inj (*Crx) 2 Mg/Ml Vial IV PUSH Q2H PRN Breakthrough Pain Rated 4-6 or NPO Hydroxyzine Pamoate 50 mg 07/16/24 14:48 Hydroxyzine Pamoate 25 Mg Capsule PO Q4H PRN Itching Lactated Ringer's 1,000 mls @ 30 mls/hr 07/16/24 13:30 07/16/24 16:05 Lr - Lactated Ringers Iv IV CONT 0 mls/hr .Q24H [facility] Infusion Cefazolin Sodium 2 gm in 50 mls @ 100 mls/hr 07/16/24 22:00 07/17/24 06:37 Ancef 2 Gm/D5w 50 Ml IVPB 07/17/24 14:29 Infused Q8H [facility] Infusion Ibuprofen 800 mg in 200 mls @ 400 mls/hr 07/16/24 14:48 Caldolor 800 Mg/200 Ml IVPB Q6H PRN Breakthrough Pain Rated 1-3 or NPO Lisinopril 20 mg 07/17/24 09:00 07/17/24 08:20 Lisinopril 20 Mg Tablet PO 20 mg DAILY [facility] Administration Lorazepam 1 mg 07/16/24 18:05 07/17/24 08:22 Lorazepam (*Crx) 1 Mg Tablet PO 1 mg BID [facility] Administration Multivitamins Therapeutic 1 tablet 07/17/24 09:00 07/17/24 08:23 Multivitamins Therapeutic Tab (*Bkc) PO 1 tablet DAILY [facility] Administration Naloxone HCl 0.1 mg 07/16/24 14:48 Naloxone Hcl 0.4 Mg/Ml Vial IV PUSH Q2M PRN Opiate Reversal Methimazole 2.5 Mg 2.5 each 07/17/24 09:00 07/17/24 08:24 Tab Nonformulary PO 08/16/24 08:59 Not Given Drug DAILY [facility] Non-Formulary Medication 1 each 07/16/24 17:31 Nonformulary Nutritional Supplement XX 07/17/24 17:30 PRN PRN PROTOCOL Ondansetron HCl 4 mg 07/16/24 14:48 Ondansetron Inj 4 Mg/2 Ml Vial IV PUSH Q4H PRN Nausea And Vomiting Pantoprazole Sodium 40 mg 07/16/24 21:00 07/17/24 08:21 Pantoprazole 40 Mg Tablet PO 40 mg Q12HR [facility] Administration Polyethylene Glycol 17 gm 07/17/24 09:00 07/17/24 08:28 Polyethylene Glycol 3350 17 Gm Powd.Pack PO 17 gm QAM [facility] Administration Senna/Docusate Sodium 2 tab 07/16/24 17:00 07/17/24 08:23 Senna/Docusate Sodium Tablet PO 2 tab BID [facility] Administration Vitamin D 2,000 units 07/17/24 09:00 07/17/24 08:21 Cholecalciferol 1,000 Units Tablet PO 2,000 units DAILY [facility] Administration Vitamin E 200 unit 07/17/24 09:00 07/17/24 08:22 Vitamin E 100 Unit Capsule PO 200 unit QAM [facility] Administration Radiology Results: ITS Impressions Hip/Pelvis X-Ray 07/16/24 10:39 Impression: Acute, comminuted, significantly displaced and angulated intertrochanteric fracture of the proximal left femur. Chest X-Ray 07/16/24 10:40 Impression: Clear lungs. Cardiomegaly. Labs Labs: Laboratory Results - last 24 hr 07/16/24 07/16/24 07/17/24 10:21 17:09 04:33 WBC 6.7 9.2 RBC 4.31 3.39 L Hgb 12.3 9.7 L Hct 38.8 30.9 L MCV 90.0 91.2 MCH 28.5 28.6 MCHC 31.7 L 31.4 L RDW 13.3 13.2 Plt Count 225 189 MPV 10.1 10.0 Immature Gran % (Auto) 0.2 0.4 Neut % (Auto) 60.2 84.1 H Lymph % (Auto) 26.5 6.5 L [place] % (Auto) 8.7 H 8.8 H Eos % (Auto) 3.6 0.0 Baso % (Auto) 0.8 0.2 Lymph # (Auto) 1.76 0.60 L [place] # (Auto) 0.6 0.8 H Eos # (Auto) 0.2 0.0 Baso # (Auto) 0.1 0.0 Abs Immat Gran (auto) 0.01 0.04 H Absolute Neuts (auto) 4.0 7.7 H Absolute Nucleated RBC 0.000 0.000 Nucleated RBC % 0.0 0.0 PT 12.9 INR 0.9 APTT 25.0 Sodium 140 138 Potassium 4.4 4.5 Chloride 107 104 Carbon Dioxide 28 27 Anion Gap 5 7 BUN 26 H 34 H Creatinine 0.94 1.15 H Estim Creat Clear Calc 38 31 Estimated GFR 57 L 45 L Glucose 100 139 H Calcium 9.4 8.2 L Total Bilirubin 0.6 AST 27 ALT 21 Alkaline Phosphatase 78 Total Protein 7.0 Albumin 4.1 Urine Color Yellow Urine Appearance Cloudy H Urine pH 6.5 Ur Specific [place] 1.021 Urine Protein 1+ H Urine Glucose (UA) Negative Urine Ketones 1+ H Ur Blood (Man) Negative Urine Nitrate Negative Urine Bilirubin Negative Urine Urobilinogen 0.2 Leukocyte Esterase Rfl Negative Urine RBC 3-5 H Urine WBC 0-5 Ur Squamous Epith Cells None seen Urine Bacteria None seen Urine Casts 0-2 Blood Type O Positive Antibody Screen Negative
[2024-07-17 09:27] LABS: Magnesium 1.9 mg/dL (1.6-2.3)
--- NOTE | 2024-07-17 10:41 | P.PNIM_ITS ---
Progress Note: A&P Assessment and Plan (1) Intertrochanteric fracture of left hip: Qualifiers: Encounter type: subsequent encounter Fracture type: closed Fracture alignment: displaced Fracture healing: with routine healing Qualified Code(s): S72.142D - Displaced intertrochanteric fracture of left femur, subsequent encounter for closed fracture with routine healing Code(s): S72.142A - Displaced intertrochanteric fracture of left femur, initial encounter for closed fracture Status: Acute Assessment and Plan: * Hip/pelvic XR, 07/16: Acute, comminuted, significantly displaced and angulated intertrochanteric fracture of the proximal left femur. Orthopedics consulted, Jose Armando REDDING. discussed operative versus conservative management with the patient, patient would like to proceed with surgical management. * Underwent a trochanteric intramedullary nail, left hip on 07/16. No immediate postop complaints. Denies significant nausea or pain. * Analgesics p.r.n. * PT/OT with weight-bearing as tolerated. * Care coordination consulted for rehab * Monitor labs. (2) Hyperthyroidism: Code(s): E05.90 - Thyrotoxicosis, unspecified without thyrotoxic crisis or storm Status: Chronic Assessment and Plan: * Continue home medication: Methimazole 2.5 mg daily. (3) Hypertension: Qualifiers: Hypertension type: primary hypertension Qualified Code(s): I10 - Essential (primary) hypertension Code(s): I10 - Essential (primary) hypertension Status: Chronic Assessment and Plan: * Chronic, currently 122/72. * Continue home medications: Lisinopril, Diltiazem. Subjective Date/time seen: 07/17/24 10:41 Interval history: Patient sitting up in chair. Patient reports pain was a 5 when standing with leg, frequent, and aching. Patient reports that she got slightly dizzy when she stood up. Patient denies chest pain, palpitations, headache, nausea, or vomiting. Review of Systems Review of Systems: All systems reviewed & are unremarkable except as noted in HPI and below Exam Const: General: comfortable and no acute distress Resp: Effort & Inspection: normal respiratory effort Auscultation: clear to auscultation bilaterally Cardio: Rate: regular rate Rhythm: regular rhythm GI: GI Palp: Yes Soft to palpation Auscultation: normal bowel sounds Skin: Other: Dressing to left femur surgical site. C/D/I. Neuro: General: gait normal Speech: normal speech Extrem: General: no pedal edema Psych: Mental Status: mental status grossly normal Affect: normal affect Other: Pleasant Objective Data Vital Signs Vital Signs: Vital Signs - 24 hr 07/16/24 11:32 07/16/24 12:15 07/16/24 13:34 Temperature 97.8 F 97.8 F 99.6 F Pulse Rate 74 80 52 L Respiratory Rate 17 16 Blood Pressure 166/78 H 168/80 H 174/94 H Pulse Oximetry 100 100 100 Oxygen Delivery Oxygen Flow Rate 07/16/24 14:59 07/16/24 15:10 07/16/24 15:25 Temperature 98.3 F Pulse Rate 103 H 94 88 Respiratory Rate 20 15 16 Blood Pressure 151/109 H 170/92 H 150/78 H Pulse Oximetry 99 95 96 Oxygen Delivery Simple Face Mask Simple Face Mask Nasal Cannula Oxygen Flow Rate 8 8 2 07/16/24 15:40 07/16/24 16:00 07/16/24 16:20 Temperature 98.2 F Pulse Rate 83 89 89 Respiratory Rate 16 18 18 Blood Pressure 150/81 H 141/70 H 144/64 H Pulse Oximetry 100 98 100 Oxygen Delivery Room Air Room Air Oxygen Flow Rate 07/16/24 16:33 07/16/24 18:05 07/16/24 20:33 Temperature 97.9 F 98.3 F 97.6 F Pulse Rate 83 71 81 Respiratory Rate 18 18 17 Blood Pressure 147/71 H 146/73 H 137/70 Pulse Oximetry 100 100 100 Oxygen Delivery Oxygen Flow Rate 07/17/24 00:30 07/17/24 04:33 07/17/24 08:22 Temperature 98.0 F 98.6 F Pulse Rate 77 73 Respiratory Rate 16 17 Blood Pressure 109/67 112/67 Pulse Oximetry 100 99 98 Oxygen Delivery Room Air Oxygen Flow Rate 07/17/24 08:33 07/17/24 09:04 07/17/24 10:10 Temperature 98 F Pulse Rate 70 Respiratory Rate 17 Blood Pressure 120/68 Pulse Oximetry 99 Oxygen Delivery Room Air Room Air Oxygen Flow Rate Intake/Output Intake/Output: Intake & Output 07/14/24 07/15/24 07/16/24 07/17/24 23:59 23:59 23:59 23:59 Intake Total 623 440 Output Total 100 200 Balance 523 240 Meds/Results Medications: Active Medications Generic Name Dose Route Start Last Admin Trade Name Freq PRN Reason Stop Dose Admin Acetaminophen 650 mg 07/16/24 14:48 07/16/24 22:26 Acetaminophen 325 Mg Tablet PO 650 mg Q6HR PRN Administration Pain or Fever Hydrocodone Bitart/Acetaminophen 1 tab 07/16/24 14:48 07/17/24 08:21 Hydrocodone/Acetaminophen (*Crx) 5-325 Mg Tablet PO 1 tab Q4H PRN Administration Pain Rated 4-6 Aspirin 325 mg 07/16/24 21:00 07/17/24 08:23 Aspirin 325 Mg Enteric Tablet PO 325 mg Q12HR [facility] Administration Bismuth Subsalicylate 524 mg 07/16/24 17:18 Bismuth Subsalicylate 262 Mg Chewable Tablet PO Q1H PRN Indigestion Calcium Carbonate 1,000 mg 07/17/24 09:00 07/17/24 08:20 Calcium Carbonate (Oscal) 500 Mg Tablet PO 1,000 mg DAILY [facility] Administration Diltiazem HCl 120 mg 07/17/24 09:00 07/17/24 08:23 Diltiazem Hcl Cd 120 Mg Cap.24hr PO 120 mg DAILY [facility] Administration Hydromorphone HCl 1 mg 07/16/24 15:02 Hydromorphone Hcl Inj (*Crx) 2 Mg/Ml Vial IV PUSH Q2H PRN Breakthrough Pain Rated 7-10 or NPO Hydromorphone HCl 0.5 mg 07/16/24 15:02 Hydromorphone Hcl Inj (*Crx) 2 Mg/Ml Vial IV PUSH Q2H PRN Breakthrough Pain Rated 4-6 or NPO Hydroxyzine Pamoate 50 mg 07/16/24 14:48 Hydroxyzine Pamoate 25 Mg Capsule PO Q4H PRN Itching Lactated Ringer's 1,000 mls @ 30 mls/hr 07/16/24 13:30 07/16/24 16:05 Lr - Lactated Ringers Iv IV CONT 0 mls/hr .Q24H [facility] Infusion Cefazolin Sodium 2 gm in 50 mls @ 100 mls/hr 07/16/24 22:00 07/17/24 06:37 Ancef 2 Gm/D5w 50 Ml IVPB 07/17/24 14:29 Infused Q8H [facility] Infusion Ibuprofen 800 mg in 200 mls @ 400 mls/hr 07/16/24 14:48 Caldolor 800 Mg/200 Ml IVPB Q6H PRN Breakthrough Pain Rated 1-3 or NPO Lisinopril 20 mg 07/17/24 09:00 07/17/24 08:20 Lisinopril 20 Mg Tablet PO 20 mg DAILY [facility] Administration Lorazepam 1 mg 07/16/24 18:05 07/17/24 08:22 Lorazepam (*Crx) 1 Mg Tablet PO 1 mg BID [facility] Administration Multivitamins Therapeutic 1 tablet 07/17/24 09:00 07/17/24 08:23 Multivitamins Therapeutic Tab (*Bkc) PO 1 tablet DAILY [facility] Administration Naloxone HCl 0.1 mg 07/16/24 14:48 Naloxone Hcl 0.4 Mg/Ml Vial IV PUSH Q2M PRN Opiate Reversal Methimazole 2.5 Mg 2.5 each 07/17/24 09:00 07/17/24 08:24 Tab Nonformulary PO 08/16/24 08:59 Not Given Drug DAILY [facility] Non-Formulary Medication 1 each 07/16/24 17:31 Nonformulary Nutritional Supplement XX 07/17/24 17:30 PRN PRN PROTOCOL Ondansetron HCl 4 mg 07/16/24 14:48 Ondansetron Inj 4 Mg/2 Ml Vial IV PUSH Q4H PRN Nausea And Vomiting Pantoprazole Sodium 40 mg 07/16/24 21:00 07/17/24 08:21 Pantoprazole 40 Mg Tablet PO 40 mg Q12HR [facility] Administration Polyethylene Glycol 17 gm 07/17/24 09:00 07/17/24 08:28 Polyethylene Glycol 3350 17 Gm Powd.Pack PO 17 gm QAM [facility] Administration Senna/Docusate Sodium 2 tab 07/16/24 17:00 07/17/24 08:23 Senna/Docusate Sodium Tablet PO 2 tab BID [facility] Administration Vitamin D 2,000 units 07/17/24 09:00 07/17/24 08:21 Cholecalciferol 1,000 Units Tablet PO 2,000 units DAILY [facility] Administration Vitamin E 200 unit 07/17/24 09:00 07/17/24 08:22 Vitamin E 100 Unit Capsule PO 200 unit QAM [facility] Administration Radiology Results: ITS Impressions Hip/Pelvis X-Ray 07/16/24 10:39 Impression: Acute, comminuted, significantly displaced and angulated intertrochanteric fracture of the proximal left femur. Chest X-Ray 07/16/24 10:40 Impression: Clear lungs. Cardiomegaly. Labs Labs: Laboratory Results - last 24 hr 07/16/24 07/16/24 07/17/24 10:21 17:09 04:30 WBC 6.7 RBC 4.31 Hgb 12.3 Hct 38.8 MCV 90.0 MCH 28.5 MCHC 31.7 L RDW 13.3 Plt Count 225 MPV 10.1 Immature Gran % (Auto) 0.2 Neut % (Auto) 60.2 Lymph % (Auto) 26.5 [place] % (Auto) 8.7 H Eos % (Auto) 3.6 Baso % (Auto) 0.8 Lymph # (Auto) 1.76 [place] # (Auto) 0.6 Eos # (Auto) 0.2 Baso # (Auto) 0.1 Abs Immat Gran (auto) 0.01 Absolute Neuts (auto) 4.0 Absolute Nucleated RBC 0.000 Nucleated RBC % 0.0 PT 12.9 INR 0.9 APTT 25.0 Sodium 140 Potassium 4.4 Chloride 107 Carbon Dioxide 28 Anion Gap 5 BUN 26 H Creatinine 0.94 Estim Creat Clear Calc 38 Estimated GFR 57 L Glucose 100 Calcium 9.4 Magnesium 1.9 Total Bilirubin 0.6 AST 27 ALT 21 Alkaline Phosphatase 78 Total Protein 7.0 Albumin 4.1 Urine Color Yellow Urine Appearance Cloudy H Urine pH 6.5 Ur Specific [place] 1.021 Urine Protein 1+ H Urine Glucose (UA) Negative Urine Ketones 1+ H Ur Blood (Man) Negative Urine Nitrate Negative Urine Bilirubin Negative Urine Urobilinogen 0.2 Leukocyte Esterase Rfl Negative Urine RBC 3-5 H Urine WBC 0-5 Ur Squamous Epith Cells None seen Urine Bacteria None seen Urine Casts 0-2 Blood Type O Positive Antibody Screen Negative 07/17/24 04:33 WBC 9.2 RBC 3.39 L Hgb 9.7 L Hct 30.9 L MCV 91.2 MCH 28.6 MCHC 31.4 L RDW 13.2 Plt Count 189 MPV 10.0 Immature Gran % (Auto) 0.4 Neut % (Auto) 84.1 H Lymph % (Auto) 6.5 L [place] % (Auto) 8.8 H Eos % (Auto) 0.0 Baso % (Auto) 0.2 Lymph # (Auto) 0.60 L [place] # (Auto) 0.8 H Eos # (Auto) 0.0 Baso # (Auto) 0.0 Abs Immat Gran (auto) 0.04 H Absolute Neuts (auto) 7.7 H Absolute Nucleated RBC 0.000 Nucleated RBC % 0.0 PT INR APTT Sodium 138 Potassium 4.5 Chloride 104 Carbon Dioxide 27 Anion Gap 7 BUN 34 H Creatinine 1.15 H Estim Creat Clear Calc 31 Estimated GFR 45 L Glucose 139 H Calcium 8.2 L Magnesium Total Bilirubin AST ALT Alkaline Phosphatase Total Protein Albumin Urine Color Urine Appearance Urine pH Ur Specific [place] Urine Protein Urine Glucose (UA) Urine Ketones Ur Blood (Man) Urine Nitrate Urine Bilirubin Urine Urobilinogen Leukocyte Esterase Rfl Urine RBC Urine WBC Ur Squamous Epith Cells Urine Bacteria Urine Casts Blood Type Antibody Screen Quality VTE Prophylaxis VTE prophylaxis: mechanical ordered
[2024-07-18] VITALS (8 sets, daily range): BP systolic 108–139; BP diastolic 55–103; PULSE 57–121; RESP 16–18; TEMP 36.3–37.2; O2SAT 95–99
[2024-07-18 05:02] LABS: Basophils Absolute Auto 0.1 K/mm3 (0.0-0.1); Basophils Percent Auto 0.7 % (0.2-1.2); Eosinophils Absolute Auto 0.1 K/mm3 (0-0.3); Eosinophils Percent Auto 1.8 % (0-4.4); Hemoglobin 8.8 g/dL (12.0-15.0); Immature Granulocyte Absolute 0.02 K/mm3 (0.00-0.031); Immature Granulocyte Percent A 0.3 % (0-0.5); Lymphocytes Absolute Auto 1.61 K/mm3 (0.9-3.2); Mean Corpuscular HGB Conc 31.4 g/dl (32-36); Mean Corpuscular Hemoglobin 29.3 pg (26-34); Mean Corpuscular Volume 93.3 fl (80-100); Mean Platelet Volume 10.1 fl (7.4-10.4); Monocytes Absolute Auto 0.9 K/mm3 (0.1-0.6); Monocytes Percent Auto 11.7 % (2.6-8.5); Neutrophils Absolute Auto 4.7 K/mm3 (1.3-6.7); Neutrophils Percent Auto 63.5 % (45.5-73.1); Platelet Count Result 164 k/mm3 (150-375); Red Cell Distribution Width 13.5 % (11.5-14.5); White Blood Count 7.3 K/mm3 (4.5-10.0)
[2024-07-18 05:20] LABS: Alanine Aminotransferase 12 U/L (6-35); Albumin Level 3.1 g/dL (3.5-5.1); Alkaline Phosphatase 58 U/L (38-126); Anion Gap 3 mmol/L (4-12); Aspartate Amino Transferase 25 U/L (14-36); Bilirubin,Total 0.3 mg/dL (0.2-1.3); Blood Urea Nitrogen 39 mg/dL (7-17); Calcium 8.6 mg/dL (8.4-10.2); Carbon Dioxide 30 mmol/L (22-30); Chloride 105 mmol/L (98-107); Estimated CRCL calculation 30 ml/min; Estimated Glomerular Filt Rate 43; Glucose 100 mg/dL (65-110); Potassium 4.3 mmol/L (3.4-5.0); Sodium 138 mmol/L (137-145)
[2024-07-18] MEDS: CHOLECALCIFEROL 1,000 UNITS TABLET 2000 UNITS PO (08:35)
[2024-07-18] MEDS: ASPIRIN 325 MG ENTERIC TABLET PO ×2 (08:35→20:05)
[2024-07-18] MEDS: CALCIUM CARBONATE (OSCAL) 500 MG TABLET 1000 MG PO (08:35)
[2024-07-18] MEDS: MULTIVITAMINS THERAPEUTIC TAB (*BKC) 1 TABLET PO (08:36)
[2024-07-18] MEDS: SENNA/DOCUSATE SODIUM TABLET 2 TAB PO (08:36)
[2024-07-18] MEDS: ACETAMINOPHEN 325 MG TABLET 650 MG PO (08:39)
[2024-07-18] MEDS: VITAMIN E 100 UNIT CAPSULE 200 UNIT PO (08:43)
[2024-07-18] MEDS: polyethylene glycoL 3350 17 GM POWD.PACK PO (08:43)
[2024-07-18] MEDS: PANTOPRAZOLE 40 MG TABLET PO ×2 (08:44→20:05)
[2024-07-18] MEDS: SODIUM CHLORIDE 0.9% IV 500 ML 100 ML IV CONT (09:02)
--- NOTE | 2024-07-18 09:16 | PCPTNOTE ---
attempted PT treatment 840- pt in bed and just returned from bed side commode and had dizziness episode. Discussed pt with TAURUS Diaz. Pt to have meds and breakfast, will try later.
[2024-07-18] MEDS: [UNRECOGNIZED DRUG - OTHER] PO (09:22)
[2024-07-18] MEDS: METHIMAZOLE 2.5 MG PO (09:22)
--- NOTE | 2024-07-18 09:32 | PM.PNORT ---
Progress Note: A&P Assessment and Plan (1) Intertrochanteric fracture of left hip: Qualifiers: Encounter type: subsequent encounter Fracture type: closed Fracture alignment: displaced Fracture healing: with routine healing Qualified Code(s): S72.142D - Displaced intertrochanteric fracture of left femur, subsequent encounter for closed fracture with routine healing Code(s): S72.142A - Displaced intertrochanteric fracture of left femur, initial encounter for closed fracture Status: Acute Assessment and Plan: Postoperative day 2: left hip fracture trochanteric nail. Pain control. PT/OT with weight-bearing as tolerated. Follow labs. Acute blood loss anemia. Continue to trend H&H. Aspirin for DVT prophylaxis. Patient indicated for acute rehab once medically stable for ambulation, strength, gait (2) Anemia: Qualifiers: Anemia type: other cause Other causes of anemia: acute posthemorrhagic Qualified Code(s): D62 - Acute posthemorrhagic anemia Code(s): D64.9 - Anemia, unspecified Status: Acute Assessment and Plan: acute blood loss anemia from left hip fracture and surgery. Vitals stable. Continue to follow H&H. Subjective Subjective Date/Time Seen: 07/18/24 09:32 Post Op day: 2 Principal diagnosis: Left hip intertrochanteric fracture Interval history: Awake and alert. Sitting up in bed, Eating breakfast. Some pain left hip. Denies numbness or tingling. Exam Const: General: comfortable; No acute distress Resp: Effort & Inspection: normal respiratory effort and no audible wheezes Extrem: Right lower extremity: lower leg ( Negative Homans sign), ankle Details: normal ROM ( dorsiflexion and plantar flexion intact) and foot Details: vascular exam Details: dorsalis pedis pulse present and normal capillary refill, tendon exam Details: active flexion normal and active extension normal and motor-sensory exam Details: light-touch normal Location: in all toes; no edema Left lower extremity: normal to inspection, hip/thigh (Dressing clean dry and intact, muscle soft), ankle Details: normal ROM and foot Details: abnormal to inspection Details: other (Ecchymosis lateral ankle and hindfoot, mild swelling), vascular exam Details: dorsalis pedis pulse present and normal capillary refill and motor-sensory exam light-touch normal in all toes; no edema Objective Data Vital Signs Vital Signs: Vital Signs - 24 hr 07/17/24 10:10 07/17/24 12:33 07/17/24 16:33 Temperature 97.7 F 97.7 F Pulse Rate 68 75 Respiratory Rate 16 16 Blood Pressure 122/72 130/64 Pulse Oximetry 99 100 Oxygen Delivery Room Air 07/17/24 20:00 07/17/24 20:03 07/17/24 20:21 Temperature 97.6 F Pulse Rate 99 108 H Respiratory Rate 17 Blood Pressure 104/55 L Pulse Oximetry 97 97 Oxygen Delivery Room Air Room Air 07/17/24 23:10 07/18/24 03:50 07/18/24 08:33 Temperature 98.3 F 98.2 F 97.3 F L Pulse Rate 86 57 L 81 Respiratory Rate 16 16 18 Blood Pressure 112/68 108/55 L 125/71 Pulse Oximetry 96 95 98 Oxygen Delivery Intake/Output Intake/Output: Intake & Output 07/15/24 07/16/24 07/17/24 07/18/24 23:59 23:59 23:59 23:59 Intake Total 623 1220 Output Total 100 600 250 Balance 523 620 -250 Meds/Results Medications: Active Medications Generic Name Dose Route Start Last Admin Trade Name Freq PRN Reason Stop Dose Admin Acetaminophen 650 mg 07/16/24 14:48 07/18/24 08:39 Acetaminophen 325 Mg Tablet PO 650 mg Q6HR PRN Administration Pain or Fever Hydrocodone Bitart/Acetaminophen 1 tab 07/16/24 14:48 07/17/24 21:26 Hydrocodone/Acetaminophen (*Crx) 5-325 Mg Tablet PO 1 tab Q4H PRN Administration Pain Rated 4-6 Aspirin 325 mg 07/16/24 21:00 07/18/24 08:35 Aspirin 325 Mg Enteric Tablet PO 325 mg Q12HR ALBER Administration Bismuth Subsalicylate 524 mg 07/16/24 17:18 Bismuth Subsalicylate 262 Mg Chewable Tablet PO Q1H PRN Indigestion Calcium Carbonate 1,000 mg 07/17/24 09:00 07/18/24 08:35 Calcium Carbonate (Oscal) 500 Mg Tablet PO 1,000 mg DAILY ALBER Administration Diltiazem HCl 120 mg 07/17/24 09:00 07/18/24 09:02 Diltiazem Hcl Cd 120 Mg Cap.24hr PO Not Given DAILY ALBER Hydromorphone HCl 1 mg 07/16/24 15:02 Hydromorphone Hcl Inj (*Crx) 2 Mg/Ml Vial IV PUSH Q2H PRN Breakthrough Pain Rated 7-10 or NPO Hydromorphone HCl 0.5 mg 07/16/24 15:02 Hydromorphone Hcl Inj (*Crx) 2 Mg/Ml Vial IV PUSH Q2H PRN Breakthrough Pain Rated 4-6 or NPO Hydroxyzine Pamoate 50 mg 07/16/24 14:48 Hydroxyzine Pamoate 25 Mg Capsule PO Q4H PRN Itching Lactated Ringer's 1,000 mls @ 30 mls/hr 07/16/24 13:30 07/16/24 16:05 Lr - Lactated Ringers Iv IV CONT 0 mls/hr .Q24H ALBER Infusion Ibuprofen 800 mg in 200 mls @ 400 mls/hr 07/16/24 14:48 Caldolor 800 Mg/200 Ml IVPB Q6H PRN Breakthrough Pain Rated 1-3 or NPO Sodium Chloride 500 mls @ 100 mls/hr 07/18/24 08:52 07/18/24 09:02 Normal Saline Iv IV CONT 07/18/24 13:51 100 mls/hr .Q5H ONE Administration Lisinopril 20 mg 07/17/24 09:00 07/18/24 09:03 Lisinopril 20 Mg Tablet PO Not Given DAILY ALBER Lorazepam 1 mg 07/18/24 08:51 Lorazepam (*Crx) 1 Mg Tablet PO BID PRN Anxiety Multivitamins Therapeutic 1 tablet 07/17/24 09:00 07/18/24 08:36 Multivitamins Therapeutic Tab (*Bkc) PO 1 tablet DAILY ALBER Administration Naloxone HCl 0.1 mg 07/16/24 14:48 Naloxone Hcl 0.4 Mg/Ml Vial IV PUSH Q2M PRN Opiate Reversal Methimazole 2.5 Mg 2.5 each 07/17/24 09:00 07/18/24 09:22 Tab Nonformulary PO 08/16/24 08:59 2.5 each Drug DAILY ALBER Administration Ondansetron HCl 4 mg 07/16/24 14:48 Ondansetron Inj 4 Mg/2 Ml Vial IV PUSH Q4H PRN Nausea And Vomiting Pantoprazole Sodium 40 mg 07/16/24 21:00 07/18/24 08:44 Pantoprazole 40 Mg Tablet PO 40 mg Q12HR ALBER Administration Polyethylene Glycol 17 gm 07/17/24 09:00 07/18/24 08:43 Polyethylene Glycol 3350 17 Gm Powd.Pack PO 17 gm QAM ALBER Administration Senna/Docusate Sodium 2 tab 07/16/24 17:00 07/18/24 08:36 Senna/Docusate Sodium Tablet PO 2 tab BID ALBER Administration Vitamin D 2,000 units 07/17/24 09:00 07/18/24 08:35 Cholecalciferol 1,000 Units Tablet PO 2,000 units DAILY ALBER Administration Vitamin E 200 unit 07/17/24 09:00 07/18/24 08:43 Vitamin E 100 Unit Capsule PO 200 unit QAM ALBER Administration Radiology Results: ITS Impressions Hip/Pelvis X-Ray 07/16/24 10:39 Impression: Acute, comminuted, significantly displaced and angulated intertrochanteric fracture of the proximal left femur. Chest X-Ray 07/16/24 10:40 Impression: Clear lungs. Cardiomegaly. Labs Labs: Laboratory Results - last 24 hr 07/18/24 04:35 WBC 7.3 RBC 3.00 L Hgb 8.8 L Hct 28.0 L MCV 93.3 MCH 29.3 MCHC 31.4 L RDW 13.5 Plt Count 164 MPV 10.1 Immature Gran % (Auto) 0.3 Neut % (Auto) 63.5 Lymph % (Auto) 22.0 [place] % (Auto) 11.7 H Eos % (Auto) 1.8 Baso % (Auto) 0.7 Lymph # (Auto) 1.61 [place] # (Auto) 0.9 H Eos # (Auto) 0.1 Baso # (Auto) 0.1 Abs Immat Gran (auto) 0.02 Absolute Neuts (auto) 4.7 Absolute Nucleated RBC 0.000 Nucleated RBC % 0.0 Sodium 138 Potassium 4.3 Chloride 105 Carbon Dioxide 30 Anion Gap 3 L BUN 39 H Creatinine 1.21 H Estim Creat Clear Calc 30 Estimated GFR 43 L Glucose 100 Calcium 8.6 Total Bilirubin 0.3 AST 25 ALT 12 Alkaline Phosphatase 58 Total Protein 5.0 L Albumin 3.1 L
--- NOTE | 2024-07-18 10:12 | P.PNIM_ITS ---
Progress Note: A&P Assessment and Plan (1) Intertrochanteric fracture of left hip: Qualifiers: Encounter type: subsequent encounter Fracture alignment: displaced Fracture healing: with routine healing Fracture type: closed Qualified Code(s): S72.142D - Displaced intertrochanteric fracture of left femur, subsequent encounter for closed fracture with routine healing Code(s): S72.142A - Displaced intertrochanteric fracture of left femur, initial encounter for closed fracture Status: Acute Assessment and Plan: * Hip/pelvic XR, 07/16: Acute, comminuted, significantly displaced and angulated intertrochanteric fracture of the proximal left femur. Orthopedics consulted, Jose Armando REDDING. discussed operative versus conservative management with the patient, patient would like to proceed with surgical management. * Underwent a trochanteric intramedullary nail, left hip on 07/16. No immediate postop complaints. Denies significant nausea or pain. * Analgesics p.r.n. * PT/OT with weight-bearing as tolerated. * Care coordination consulted for rehab. * Patient had an episode of dizziness while up this morning, blood pressure was 84/47. NS @100 x 500 ml. Encourage oral intake. * Monitor labs. (2) Hyperthyroidism: Code(s): E05.90 - Thyrotoxicosis, unspecified without thyrotoxic crisis or storm Status: Chronic Assessment and Plan: * Continue home medication: Methimazole 2.5 mg daily. (3) Hypertension: Qualifiers: Hypertension type: primary hypertension Qualified Code(s): I10 - Essential (primary) hypertension Code(s): I10 - Essential (primary) hypertension Status: Chronic Assessment and Plan: * Chronic, currently 125/71. * Continue home medications: Lisinopril, Diltiazem. Subjective Date/time seen: 07/18/24 10:12 Interval history: Patient had an episode of dizziness while up this morning, blood pressure was 84/47. NS @100 x 500 ml. Encourage oral intake. Patient sitting up in chair with son and friends at bedside. Patient denies chest pain, palpitations, headache, nausea, or vomiting. Denies dizziness while sitting in the chair. Review of Systems Review of Systems: All systems reviewed & are unremarkable except as noted in HPI and below Exam Const: General: comfortable and no acute distress Resp: Effort & Inspection: normal respiratory effort Auscultation: clear to auscultation bilaterally Cardio: Rate: regular rate Rhythm: regular rhythm GI: GI Palp: Yes Soft to palpation Auscultation: normal bowel sounds Skin: Other: Dressing to left femur surgical site. C/D/I. Neuro: Speech: normal speech Extrem: General: no pedal edema Psych: Mental Status: mental status grossly normal Affect: normal affect Objective Data Vital Signs Vital Signs: Vital Signs - 24 hr 07/17/24 12:33 07/17/24 16:33 07/17/24 20:00 Temperature 97.7 F 97.7 F Pulse Rate 68 75 Respiratory Rate 16 16 Blood Pressure 122/72 130/64 Pulse Oximetry 99 100 Oxygen Delivery Room Air 07/17/24 20:03 07/17/24 20:21 07/17/24 23:10 Temperature 97.6 F 98.3 F Pulse Rate 99 108 H 86 Respiratory Rate 17 16 Blood Pressure 104/55 L 112/68 Pulse Oximetry 97 97 96 Oxygen Delivery Room Air 07/18/24 03:50 07/18/24 08:33 07/18/24 09:15 Temperature 98.2 F 97.3 F L Pulse Rate 57 L 81 89 Respiratory Rate 16 18 Blood Pressure 108/55 L 125/71 139/80 Pulse Oximetry 95 98 Oxygen Delivery 07/18/24 09:19 07/18/24 09:23 Temperature Pulse Rate 93 121 H Respiratory Rate Blood Pressure 123/71 134/103 H Pulse Oximetry Oxygen Delivery Intake/Output Intake/Output: Intake & Output 07/15/24 07/16/24 07/17/24 07/18/24 23:59 23:59 23:59 23:59 Intake Total 623 1220 240 Output Total 100 600 600 Balance 523 620 -360 Meds/Results Medications: Active Medications Generic Name Dose Route Start Last Admin Trade Name Freq PRN Reason Stop Dose Admin Acetaminophen 650 mg 07/16/24 14:48 07/18/24 08:39 Acetaminophen 325 Mg Tablet PO 650 mg Q6HR PRN Administration Pain or Fever Hydrocodone Bitart/Acetaminophen 1 tab 07/16/24 14:48 07/17/24 21:26 Hydrocodone/Acetaminophen (*Crx) 5-325 Mg Tablet PO 1 tab Q4H PRN Administration Pain Rated 4-6 Aspirin 325 mg 07/16/24 21:00 07/18/24 08:35 Aspirin 325 Mg Enteric Tablet PO 325 mg Q12HR ALBER Administration Bismuth Subsalicylate 524 mg 07/16/24 17:18 Bismuth Subsalicylate 262 Mg Chewable Tablet PO Q1H PRN Indigestion Calcium Carbonate 1,000 mg 07/17/24 09:00 07/18/24 08:35 Calcium Carbonate (Oscal) 500 Mg Tablet PO 1,000 mg DAILY ALBER Administration Diltiazem HCl 120 mg 07/17/24 09:00 07/18/24 09:02 Diltiazem Hcl Cd 120 Mg Cap.24hr PO Not Given DAILY ALBER Hydromorphone HCl 1 mg 07/16/24 15:02 Hydromorphone Hcl Inj (*Crx) 2 Mg/Ml Vial IV PUSH Q2H PRN Breakthrough Pain Rated 7-10 or NPO Hydromorphone HCl 0.5 mg 07/16/24 15:02 Hydromorphone Hcl Inj (*Crx) 2 Mg/Ml Vial IV PUSH Q2H PRN Breakthrough Pain Rated 4-6 or NPO Hydroxyzine Pamoate 50 mg 07/16/24 14:48 Hydroxyzine Pamoate 25 Mg Capsule PO Q4H PRN Itching Lactated Ringer's 1,000 mls @ 30 mls/hr 07/16/24 13:30 07/16/24 16:05 Lr - Lactated Ringers Iv IV CONT 0 mls/hr .Q24H ALBER Infusion Ibuprofen 800 mg in 200 mls @ 400 mls/hr 07/16/24 14:48 Caldolor 800 Mg/200 Ml IVPB Q6H PRN Breakthrough Pain Rated 1-3 or NPO Sodium Chloride 500 mls @ 100 mls/hr 07/18/24 08:52 07/18/24 09:02 Normal Saline Iv IV CONT 07/18/24 13:51 100 mls/hr .Q5H ONE Administration Lisinopril 20 mg 07/17/24 09:00 07/18/24 09:03 Lisinopril 20 Mg Tablet PO Not Given DAILY ALBER Lorazepam 1 mg 07/18/24 08:51 Lorazepam (*Crx) 1 Mg Tablet PO BID PRN Anxiety Multivitamins Therapeutic 1 tablet 07/17/24 09:00 07/18/24 08:36 Multivitamins Therapeutic Tab (*Bkc) PO 1 tablet DAILY ALBER Administration Naloxone HCl 0.1 mg 07/16/24 14:48 Naloxone Hcl 0.4 Mg/Ml Vial IV PUSH Q2M PRN Opiate Reversal Methimazole 2.5 Mg 2.5 each 07/17/24 09:00 07/18/24 09:22 Tab Nonformulary PO 08/16/24 08:59 2.5 each Drug DAILY ALBER Administration Ondansetron HCl 4 mg 07/16/24 14:48 Ondansetron Inj 4 Mg/2 Ml Vial IV PUSH Q4H PRN Nausea And Vomiting Pantoprazole Sodium 40 mg 07/16/24 21:00 07/18/24 08:44 Pantoprazole 40 Mg Tablet PO 40 mg Q12HR ALBER Administration Polyethylene Glycol 17 gm 07/17/24 09:00 07/18/24 08:43 Polyethylene Glycol 3350 17 Gm Powd.Pack PO 17 gm QAM ALBER Administration Senna/Docusate Sodium 2 tab 07/16/24 17:00 07/18/24 08:36 Senna/Docusate Sodium Tablet PO 2 tab BID ALBER Administration Vitamin D 2,000 units 07/17/24 09:00 07/18/24 08:35 Cholecalciferol 1,000 Units Tablet PO 2,000 units DAILY ALBER Administration Vitamin E 200 unit 07/17/24 09:00 07/18/24 08:43 Vitamin E 100 Unit Capsule PO 200 unit QAM ALBER Administration Radiology Results: ITS Impressions Hip/Pelvis X-Ray 07/16/24 10:39 Impression: Acute, comminuted, significantly displaced and angulated intertrochanteric fr acture of the proximal left femur. Chest X-Ray 07/16/24 10:40 Impression: Clear lungs. Cardiomegaly. Labs Labs: Laboratory Results - last 24 hr 07/18/24 04:35 WBC 7.3 RBC 3.00 L Hgb 8.8 L Hct 28.0 L MCV 93.3 MCH 29.3 MCHC 31.4 L RDW 13.5 Plt Count 164 MPV 10.1 Immature Gran % (Auto) 0.3 Neut % (Auto) 63.5 Lymph % (Auto) 22.0 [place] % (Auto) 11.7 H Eos % (Auto) 1.8 Baso % (Auto) 0.7 Lymph # (Auto) 1.61 [place] # (Auto) 0.9 H Eos # (Auto) 0.1 Baso # (Auto) 0.1 Abs Immat Gran (auto) 0.02 Absolute Neuts (auto) 4.7 Absolute Nucleated RBC 0.000 Nucleated RBC % 0.0 Sodium 138 Potassium 4.3 Chloride 105 Carbon Dioxide 30 Anion Gap 3 L BUN 39 H Creatinine 1.21 H Estim Creat Clear Calc 30 Estimated GFR 43 L Glucose 100 Calcium 8.6 Total Bilirubin 0.3 AST 25 ALT 12 Alkaline Phosphatase 58 Total Protein 5.0 L Albumin 3.1 L Quality VTE Prophylaxis VTE prophylaxis: mechanical ordered
[2024-07-18] MEDS: HYDROcodone/acetaminophen (*CRX) 5-325 MG TABLET 1 TAB PO ×3 (10:24→20:05)
[2024-07-18] MEDS: LORazepam (*CRX) 1 MG TABLET PO (20:06)
[2024-07-19] MEDS: HYDROcodone/acetaminophen (*CRX) 5-325 MG TABLET 1 TAB PO ×4 (00:09→23:31)
[2024-07-19 04:57] VITALS: BP 126/69; PULSE 79; RESP 17; TEMP 36.7; O2SAT 95
[2024-07-19 05:36] LABS: Basophils Percent Auto 0.6 % (0.2-1.2); Eosinophils Absolute Auto 0.2 K/mm3 (0-0.3); Eosinophils Percent Auto 3.3 % (0-4.4); Hematocrit 27.9 % (37.0-47.0); Hemoglobin 8.7 g/dL (12.0-15.0); Immature Granulocyte Absolute 0.03 K/mm3 (0.00-0.031); Immature Granulocyte Percent A 0.4 % (0-0.5); Lymphocytes Absolute Auto 1.69 K/mm3 (0.9-3.2); Lymphocytes Percent Auto 24.5 % (18.3-44.2); Mean Corpuscular HGB Conc 31.2 g/dl (32-36); Mean Corpuscular Hemoglobin 28.7 pg (26-34); Mean Corpuscular Volume 92.1 fl (80-100); Mean Platelet Volume 10.4 fl (7.4-10.4); Monocytes Absolute Auto 0.8 K/mm3 (0.1-0.6); Monocytes Percent Auto 11.6 % (2.6-8.5); Neutrophils Absolute Auto 4.1 K/mm3 (1.3-6.7); Neutrophils Percent Auto 59.6 % (45.5-73.1); Platelet Count Result 186 k/mm3 (150-375); Red Blood Count 3.03 M/mm3 (4.2-5.4); Red Cell Distribution Width 13.4 % (11.5-14.5); White Blood Count 6.9 K/mm3 (4.5-10.0)
[2024-07-19 05:54] LABS: Alanine Aminotransferase 19 U/L (6-35); Albumin Level 3.2 g/dL (3.5-5.1); Alkaline Phosphatase 77 U/L (38-126); Anion Gap 5 mmol/L (4-12); Aspartate Amino Transferase 35 U/L (14-36); Bilirubin,Total 0.4 mg/dL (0.2-1.3); Blood Urea Nitrogen 28 mg/dL (7-17); Calcium 8.9 mg/dL (8.4-10.2); Carbon Dioxide 28 mmol/L (22-30); Chloride 104 mmol/L (98-107); Estimated CRCL calculation 40 ml/min; Estimated Glomerular Filt Rate > 60; Glucose 101 mg/dL (65-110); Potassium 4.5 mmol/L (3.4-5.0); Sodium 137 mmol/L (137-145)
[2024-07-19 08:07] VITALS: BP 134/75; PULSE 78; RESP 16; TEMP 36.7; O2SAT 96
[2024-07-19 08:10] VITALS: O2SAT 96
[2024-07-19] MEDS: CALCIUM CARBONATE (OSCAL) 500 MG TABLET 1000 MG PO (08:10)
[2024-07-19] MEDS: MULTIVITAMINS THERAPEUTIC TAB (*BKC) 1 TABLET PO (08:10)
[2024-07-19] MEDS: PANTOPRAZOLE 40 MG TABLET PO ×2 (08:10→20:01)
[2024-07-19] MEDS: ASPIRIN 325 MG ENTERIC TABLET PO ×2 (08:10→20:01)
[2024-07-19] MEDS: CHOLECALCIFEROL 1,000 UNITS TABLET 2000 UNITS PO (08:10)
[2024-07-19] MEDS: VITAMIN E 100 UNIT CAPSULE 200 UNIT PO (08:10)
[2024-07-19] MEDS: [UNRECOGNIZED DRUG - OTHER] PO (08:11)
[2024-07-19] MEDS: METHIMAZOLE 2.5 MG PO (08:11)
[2024-07-19] MEDS: dilTIAZem HCL CD 120 MG CAP.24HR PO (08:11)
[2024-07-19] MEDS: lisinopriL 20 MG TABLET PO (08:11)
[2024-07-19] MEDS: ACETAMINOPHEN 325 MG TABLET 650 MG PO (08:16)
[2024-07-19] MEDS: SODIUM CHLORIDE 0.9% IV 500 ML 100 ML IV CONT (10:09)
--- NOTE | 2024-07-19 10:44 | P.PNIM_ITS ---
Progress Note: A&P Assessment and Plan (1) Intertrochanteric fracture of left hip: Qualifiers: Encounter type: subsequent encounter Fracture type: closed Fracture alignment: displaced Fracture healing: with routine healing Qualified Code(s): S72.142D - Displaced intertrochanteric fracture of left femur, subsequent encounter for closed fracture with routine healing Code(s): S72.142A - Displaced intertrochanteric fracture of left femur, initial encounter for closed fracture Status: Acute Assessment and Plan: * Hip/pelvic XR, 07/16: Acute, comminuted, significantly displaced and angulated intertrochanteric fracture of the proximal left femur. Orthopedics consulted, Jose Armando REDDING. discussed operative versus conservative management with the patient, patient would like to proceed with surgical management. * Underwent a trochanteric intramedullary nail, left hip on 07/16. No immediate postop complaints. Denies significant nausea or pain. * Analgesics p.r.n. * PT/OT with weight-bearing as tolerated. * Care coordination consulted for rehab. * Patient had an episode of dizziness while up this morning with therapy NS @100 x 500 ml. Encourage oral intake. * Monitor labs. (2) Hyperthyroidism: Code(s): E05.90 - Thyrotoxicosis, unspecified without thyrotoxic crisis or storm Status: Chronic Assessment and Plan: * Continue home medication: Methimazole 2.5 mg daily. (3) Hypertension: Qualifiers: Hypertension type: primary hypertension Qualified Code(s): I10 - Essential (primary) hypertension Code(s): I10 - Essential (primary) hypertension Status: Chronic Assessment and Plan: * Chronic, currently 134/75. * Continue home medications: Lisinopril, Diltiazem. Will switch medications to bedtime starting tomorrow. Subjective Date/time seen: 07/19/24 10:44 Interval history: Patient sitting up in chair with son at bedside. Patient got dizzy during therapy this morning. Patient denies dizziness at present. Patient reports trying to increase her liquid intake. Patient and son report that patient takes her Diltiazem and Lisinopril at night at home. Patient denies chest pain, palpitations, headache, nausea, or vomiting. Review of Systems Review of Systems: All systems reviewed & are unremarkable except as noted in HPI and below Exam Const: General: comfortable and no acute distress Resp: Effort & Inspection: normal respiratory effort Auscultation: clear to auscultation bilaterally Cardio: Rate: regular rate Rhythm: regular rhythm GI: GI Palp: Yes Soft to palpation Auscultation: normal bowel sounds Skin: Other: Dressing intact to left hip. Neuro: Speech: normal speech Extrem: General: no pedal edema Psych: Mental Status: mental status grossly normal Affect: normal affect Objective Data Vital Signs Vital Signs: Vital Signs - 24 hr 07/18/24 16:00 07/18/24 20:12 07/19/24 04:57 Temperature 99 F 98.0 F 98.1 F Pulse Rate 79 80 79 Respiratory Rate 17 17 17 Blood Pressure 113/58 L 122/64 126/69 Pulse Oximetry 99 97 95 Oxygen Delivery 07/19/24 08:07 07/19/24 08:10 Temperature 98.1 F Pulse Rate 78 Respiratory Rate 16 Blood Pressure 134/75 Pulse Oximetry 96 96 Oxygen Delivery Room Air Intake/Output Intake/Output: Intake & Output 07/16/24 07/17/24 07/18/24 07/19/24 23:59 23:59 23:59 23:59 Intake Total 623 1220 960 Output Total 100 600 600 Balance 523 620 360 Meds/Results Medications: Active Medications Generic Name Dose Route Start Last Admin Trade Name Freq PRN Reason Stop Dose Admin Acetaminophen 650 mg 07/16/24 14:48 07/19/24 08:16 Acetaminophen 325 Mg Tablet PO 650 mg Q6HR PRN Administration Pain or Fever Hydrocodone Bitart/Acetaminophen 1 tab 07/16/24 14:48 07/19/24 04:48 Hydrocodone/Acetaminophen (*Crx) 5-325 Mg Tablet PO 1 tab Q4H PRN Administration Pain Rated 4-6 Aspirin 325 mg 07/16/24 21:00 07/19/24 08:10 Aspirin 325 Mg Enteric Tablet PO 325 mg Q12HR ALBER Administration Bismuth Subsalicylate 524 mg 07/16/24 17:18 Bismuth Subsalicylate 262 Mg Chewable Tablet PO Q1H PRN Indigestion Calcium Carbonate 1,000 mg 07/17/24 09:00 07/19/24 08:10 Calcium Carbonate (Oscal) 500 Mg Tablet PO 1,000 mg DAILY ALBER Administration Diltiazem HCl 120 mg 07/17/24 09:00 07/19/24 08:11 Diltiazem Hcl Cd 120 Mg Cap.24hr PO 120 mg DAILY ALBER Administration Hydromorphone HCl 1 mg 07/16/24 15:02 Hydromorphone Hcl Inj (*Crx) 2 Mg/Ml Vial IV PUSH Q2H PRN Breakthrough Pain Rated 7-10 or NPO Hydromorphone HCl 0.5 mg 07/16/24 15:02 Hydromorphone Hcl Inj (*Crx) 2 Mg/Ml Vial IV PUSH Q2H PRN Breakthrough Pain Rated 4-6 or NPO Hydroxyzine Pamoate 50 mg 07/16/24 14:48 Hydroxyzine Pamoate 25 Mg Capsule PO Q4H PRN Itching Ibuprofen 800 mg in 200 mls @ 400 mls/hr 07/16/24 14:48 Caldolor 800 Mg/200 Ml IVPB Q6H PRN Breakthrough Pain Rated 1-3 or NPO Sodium Chloride 500 mls @ 100 mls/hr 07/19/24 09:56 07/19/24 10:09 Normal Saline Iv IV CONT 07/19/24 14:55 100 mls/hr .Q5H ONE Administration Lisinopril 20 mg 07/17/24 09:00 07/19/24 08:11 Lisinopril 20 Mg Tablet PO 20 mg DAILY ALBER Administration Lorazepam 1 mg 07/18/24 08:51 07/18/24 20:06 Lorazepam (*Crx) 1 Mg Tablet PO 1 mg BID PRN Administration Anxiety Multivitamins Therapeutic 1 tablet 07/17/24 09:00 07/19/24 08:10 Multivitamins Therapeutic Tab (*Bkc) PO 1 tablet DAILY ALBER Administration Naloxone HCl 0.1 mg 07/16/24 14:48 Naloxone Hcl 0.4 Mg/Ml Vial IV PUSH Q2M PRN Opiate Reversal Methimazole 2.5 Mg 2.5 each 07/17/24 09:00 07/19/24 08:11 Tab Nonformulary PO 08/16/24 08:59 2.5 each Drug DAILY ALBER Administration Ondansetron HCl 4 mg 07/16/24 14:48 Ondansetron Inj 4 Mg/2 Ml Vial IV PUSH Q4H PRN Nausea And Vomiting Pantoprazole Sodium 40 mg 07/16/24 21:00 07/19/24 08:10 Pantoprazole 40 Mg Tablet PO 40 mg Q12HR ALBER Administration Polyethylene Glycol 17 gm 07/17/24 09:00 07/19/24 08:12 Polyethylene Glycol 3350 17 Gm Powd.Pack PO Not Given QAM ALBER Senna/Docusate Sodium 2 tab 07/16/24 17:00 07/19/24 08:12 Senna/Docusate Sodium Tablet PO Not Given BID ALBER Vitamin D 2,000 units 07/17/24 09:00 07/19/24 08:10 Cholecalciferol 1,000 Units Tablet PO 2,000 units DAILY ALBER Administration Vitamin E 200 unit 07/17/24 09:00 07/19/24 08:10 Vitamin E 100 Unit Capsule PO 200 unit QAM ALBER Administration Radiology Results: ITS Impressions Hip/Pelvis X-Ray 07/16/24 10:39 Impression: Acute, comminuted, significantly displaced and angulated intertrochanteric fracture of the proximal left femur. Chest X-Ray 07/16/24 10:40 Impression: Clear lungs. Cardiomegaly. Labs Labs: Laboratory Results - last 24 hr 07/19/24 05:07 WBC 6.9 RBC 3.03 L Hgb 8.7 L Hct 27.9 L MCV 92.1 MCH 28.7 MCHC 31.2 L RDW 13.4 Plt Count 186 MPV 10.4 Immature Gran % (Auto) 0.4 Neut % (Auto) 59.6 Lymph % (Auto) 24.5 [place] % (Auto) 11.6 H Eos % (Auto) 3.3 Baso % (Auto) 0.6 Lymph # (Auto) 1.69 [place] # (Auto) 0.8 H Eos # (Auto) 0.2 Baso # (Auto) 0.0 Abs Immat Gran (auto) 0.03 Absolute Neuts (auto) 4.1 Absolute Nucleated RBC 0.000 Nucleated RBC % 0.0 Sodium 137 Potassium 4.5 Chloride 104 Carbon Dioxide 28 Anion Gap 5 BUN 28 H D Creatinine 0.88 Estim Creat Clear Calc 40 Estimated GFR > 60 Glucose 101 Calcium 8.9 Total Bilirubin 0.4 AST 35 ALT 19 Alkaline Phosphatase 77 Total Protein 6.0 L Albumin 3.2 L Quality VTE Prophylaxis VTE prophylaxis: mechanical ordered
[2024-07-19] MEDS: LORazepam (*CRX) 1 MG TABLET PO ×2 (11:11→23:31)
--- NOTE | 2024-07-19 13:34 | P.PNOP_ITS ---
Progress Note: A&P Assessment and Plan (1) Intertrochanteric fracture of left hip: Qualifiers: Encounter type: subsequent encounter Fracture alignment: displaced Fracture healing: with routine healing Fracture type: closed Qualified Code(s): S72.142D - Displaced intertrochanteric fracture of left femur, subsequent encounter for closed fracture with routine healing <Rachealsa Candace Del Castillo, SKEIN WINDING OPERATOR - Last Filed: 07/19/24 13:38> Code(s): S72.142A - Displaced intertrochanteric fracture of left femur, initial encounter for closed fracture <Racheal Candace Del Castillo, SKEIN WINDING OPERATOR - Last Filed: 07/19/24 13:38> Status: Acute <Racheal RMeliton Del Castillo, SKEIN WINDING OPERATOR - Last Filed: 07/19/24 13:38> Assessment and Plan: Postoperative day 3: left hip fracture trochanteric nail. Pain control. PT/OT with weight-bearing as tolerated. FALL RISK. Follow labs. Acute blood loss anemia. Continue to trend H&H. Stable today. Aspirin for DVT prophylaxis. Patient indicated for acute rehab once medically stable for ambulation, strength, gait <Rachealsa Candace Del Castillo, SKEIN WINDING OPERATOR - Last Filed: 07/19/24 13:38> (2) Anemia: Qualifiers: Anemia type: other cause Other causes of anemia: acute posthemorrhagic Qualified Code(s): D62 - Acute posthemorrhagic anemia <Rachealsa Candace Del Castillo, SKEIN WINDING OPERATOR - Last Filed: 07/19/24 13:38> Code(s): D64.9 - Anemia, unspecified <Rachealsa Candace Del Castillo, SKEIN WINDING OPERATOR - Last Filed: 07/19/24 13:38> Status: Acute <Rachealsa Candace Del Castillo, SKEIN WINDING OPERATOR - Last Filed: 07/19/24 13:38> Assessment and Plan: Stable. <Rachealsa Candace Del Castillo, SKEIN WINDING OPERATOR - Last Filed: 07/19/24 13:38> Assessment and Plan: Reviewed history, exam, radiographs and current labs with attending MD and covering surgeon, Dr. Suárez, who agrees with current plan as indicated above. No further recommendations from Dr. Suárez at this time. <Racheal Del Castillo SKEIN WINDING OPERATOR - Last Filed: 07/19/24 13:38> Dr. Suárez: Patient seen and examined. Okay for acute rehab from orthopedic standpoint. <Alvarado Suárez MD - Last Filed: 07/20/24 08:19> Subjective Subjective Date/Time Seen: 07/19/24 13:34 <DENNIS Matt - Last Filed: 07/19/24 13:38> Post Op day: 3 <DENNIS Matt - Last Filed: 07/19/24 13:38> Principal diagnosis: Left hip intertrochanteric fracture <DENNIS Matt - Last Filed: 0 07/19/24 13:38> Interval history: Awake and alert. Sitting up in bed, Eating lunch. Some pain left hip. Denies numbness or tingling. <DENNIS Matt - Last Filed: 07/19/24 13:38> Review of Systems Review of Systems: All systems reviewed & are unremarkable except as noted in HPI and below <DENNIS Matt - Last Filed: 07/19/24 13:38> Objective Data Vital Signs Vital Signs: Vital Signs - 24 hr 07/18/24 16:00 07/18/24 20:12 07/19/24 04:57 Temperature 37.2 C 36.7 C 36.7 C Pulse Rate 79 80 79 Respiratory Rate 17 17 17 Blood Pressure 113/58 L 122/64 126/69 Pulse Oximetry 99 97 95 Oxygen Delivery 07/19/24 08:07 07/19/24 08:10 Temperature 36.7 C Pulse Rate 78 Respiratory Rate 16 Blood Pressure 134/75 Pulse Oximetry 96 96 Oxygen Delivery Room Air <DENNIS Matt - Last Filed: 07/19/24 13:38> Intake/Output Intake/Output: Intake & Output 07/16/24 07/17/24 07/18/24 07/19/24 23:59 23:59 23:59 23:59 Intake Total 623 1220 960 240 Output Total 100 600 600 Balance 523 620 360 240 <DENNIS Matt - Last Filed: 07/19/24 13:38> Meds/Results Medications: Active Medications Generic Name Dose Route Start Last Admin Trade Name Freq PRN Reason Stop Dose Admin Acetaminophen 650 mg 07/16/24 14:48 07/19/24 08:16 Acetaminophen 325 Mg Tablet PO 650 mg Q6HR PRN Administration Pain or Fever Hydrocodone Bitart/Acetaminophen 1 tab 07/16/24 14:48 07/19/24 04:48 Hydrocodone/Acetaminophen (*Crx) 5-325 Mg Tablet PO 1 tab Q4H PRN Administration Pain Rated 4-6 Aspirin 325 mg 07/16/24 21:00 07/19/24 08:10 Aspirin 325 Mg Enteric Tablet PO 325 mg Q12HR ALBER Administration Bismuth Subsalicylate 524 mg 07/16/24 17:18 Bismuth Subsalicylate 262 Mg Chewable Tablet PO Q1H PRN Indigestion Calcium Carbonate 1,000 mg 07/17/24 09:00 07/19/24 08:10 Calcium Carbonate (Oscal) 500 Mg Tablet PO 1,000 mg DAILY ALBER Administration Calcium Carbonate 200 mg 07/19/24 11:05 Calcium Carbonate (Tums) 500 Mg (200 Mg Elemental) PO Q6H PRN Indigestion Diltiazem HCl 120 mg 07/20/24 21:00 Diltiazem Hcl Cd 120 Mg Cap.24hr PO HS ALBER Hydromorphone HCl 1 mg 07/16/24 15:02 Hydromorphone Hcl Inj (*Crx) 2 Mg/Ml Vial IV PUSH Q2H PRN Breakthrough Pain Rated 7-10 or NPO Hydromorphone HCl 0.5 mg 07/16/24 15:02 Hydromorphone Hcl Inj (*Crx) 2 Mg/Ml Vial IV PUSH Q2H PRN Breakthrough Pain Rated 4-6 or NPO Hydroxyzine Pamoate 50 mg 07/16/24 14:48 Hydroxyzine Pamoate 25 Mg Capsule PO Q4H PRN Itching Ibuprofen 800 mg in 200 mls @ 400 mls/hr 07/16/24 14:48 Caldolor 800 Mg/200 Ml IVPB Q6H PRN Breakthrough Pain Rated 1-3 or NPO Sodium Chloride 500 mls @ 100 mls/hr 07/19/24 09:56 07/19/24 10:09 Normal Saline Iv IV CONT 07/19/24 14:55 100 mls/hr .Q5H ONE Administration Lisinopril 20 mg 07/20/24 21:00 Lisinopril 20 Mg Tablet PO HS ALBER Lorazepam 1 mg 07/18/24 08:51 07/19/24 11:11 Lorazepam (*Crx) 1 Mg Tablet PO 1 mg BID PRN Administration Anxiety Multivitamins Therapeutic 1 tablet 07/17/24 09:00 07/19/24 08:10 Multivitamins Therapeutic Tab (*Bkc) PO 1 tablet DAILY ALBER Administration Naloxone HCl 0.1 mg 07/16/24 14:48 Naloxone Hcl 0.4 Mg/Ml Vial IV PUSH Q2M PRN Opiate Reversal Methimazole 2.5 Mg 2.5 each 07/17/24 09:00 07/19/24 08:11 Tab Nonformulary PO 08/16/24 08:59 2.5 each Drug DAILY [facility] Administration Ondansetron HCl 4 mg 07/16/24 14:48 Ondansetron Inj 4 Mg/2 Ml Vial IV PUSH Q4H PRN Nausea And Vomiting Pantoprazole Sodium 40 mg 07/16/24 21:00 07/19/24 08:10 Pantoprazole 40 Mg Tablet PO 40 mg Q12HR ALBER Administration Polyethylene Glycol 17 gm 07/17/24 09:00 07/19/24 08:12 Polyethylene Glycol 3350 17 Gm Powd.Pack PO Not Given QAM [facility] Senna/Docusate Sodium 2 tab 07/16/24 17:00 07/19/24 08:12 Senna/Docusate Sodium Tablet PO Not Given BID [facility] Vitamin D 2,000 units 07/17/24 09:00 07/19/24 08:10 Cholecalciferol 1,000 Units Tablet PO 2,000 units DAILY [facility] Administration Vitamin E 200 unit 07/17/24 09:00 07/19/24 08:10 Vitamin E 100 Unit Capsule PO 200 unit QAM ALBER Administration <DENNIS Matt - Last Filed: 07/19/24 13:38> Radiology Results: ITS Impressions Hip/Pelvis X-Ray 07/16/24 10:39 Impression: Acute, comminuted, significantly displaced and angulated intertrochanteric fracture of the proximal left femur. Chest X-Ray 07/16/24 10:40 Impression: Clear lungs. Cardiomegaly. <DENNIS Matt - Last Filed: 07/19/24 13:38> Labs Labs: Laboratory Results - last 24 hr 07/19/24 05:07 WBC 6.9 RBC 3.03 L Hgb 8.7 L Hct 27.9 L MCV 92.1 MCH 28.7 MCHC 31.2 L RDW 13.4 Plt Count 186 MPV 10.4 Immature Gran % (Auto) 0.4 Neut % (Auto) 59.6 Lymph % (Auto) 24.5 [place] % (Auto) 11.6 H Eos % (Auto) 3.3 Baso % (Auto) 0.6 Lymph # (Auto) 1.69 [place] # (Auto) 0.8 H Eos # (Auto) 0.2 Baso # (Auto) 0.0 Abs Immat Gran (auto) 0.03 Absolute Neuts (auto) 4.1 Absolute Nucleated RBC 0.000 Nucleated RBC % 0.0 Sodium 137 Potassium 4.5 Chloride 104 Carbon Dioxide 28 Anion Gap 5 BUN 28 H D Creatinine 0.88 Estim Creat Clear Calc 40 Estimated GFR > 60 Glucose 101 Calcium 8.9 Total Bilirubin 0.4 AST 35 ALT 19 Alkaline Phosphatase 77 Total Protein 6.0 L Albumin 3.2 L <DENNIS Matt - Last Filed: 07/19/24 13:38>
[2024-07-19 16:00] VITALS: BP 126/59; PULSE 80; RESP 16; TEMP 36.4; O2SAT 95
[2024-07-19] MEDS: SENNA/DOCUSATE SODIUM TABLET 2 TAB PO (17:20)
[2024-07-19] MEDS: CALCIUM CARBONATE (TUMS) 500 MG (200 MG ELEMENTAL) PO (17:20)
[2024-07-19 20:11] VITALS: PULSE 90; RESP 20; O2SAT 93
[2024-07-19 20:56] VITALS: BP 115/44; PULSE 87; RESP 20; TEMP 36.8; O2SAT 95
[2024-07-20] VITALS (10 sets, daily range): BP systolic 90–166; BP diastolic 47–70; PULSE 87–98; RESP 16; TEMP 36.4–37.1; O2SAT 81–98
[2024-07-20 05:30] LABS: Basophils Absolute Auto 0.1 K/mm3 (0.0-0.1); Basophils Percent Auto 0.9 % (0.2-1.2); Eosinophils Absolute Auto 0.3 K/mm3 (0-0.3); Eosinophils Percent Auto 5.2 % (0-4.4); Hematocrit 26.2 % (37.0-47.0); Immature Granulocyte Absolute 0.02 K/mm3 (0.00-0.031); Immature Granulocyte Percent A 0.3 % (0-0.5); Lymphocytes Absolute Auto 1.43 K/mm3 (0.9-3.2); Lymphocytes Percent Auto 22.6 % (18.3-44.2); Mean Corpuscular HGB Conc 30.5 g/dl (32-36); Mean Corpuscular Hemoglobin 29.5 pg (26-34); Mean Corpuscular Volume 96.7 fl (80-100); Mean Platelet Volume 10.2 fl (7.4-10.4); Monocytes Absolute Auto 0.7 K/mm3 (0.1-0.6); Monocytes Percent Auto 11.5 % (2.6-8.5); Neutrophils Absolute Auto 3.8 K/mm3 (1.3-6.7); Neutrophils Percent Auto 59.5 % (45.5-73.1); Platelet Count Result 182 k/mm3 (150-375); Red Blood Count 2.71 M/mm3 (4.2-5.4); Red Cell Distribution Width 13.4 % (11.5-14.5); White Blood Count 6.3 K/mm3 (4.5-10.0)
[2024-07-20 05:44] LABS: Alanine Aminotransferase 28 U/L (6-35); Alkaline Phosphatase 92 U/L (38-126); Anion Gap 3 mmol/L (4-12); Aspartate Amino Transferase 47 U/L (14-36); Bilirubin,Total 0.4 mg/dL (0.2-1.3); Blood Urea Nitrogen 29 mg/dL (7-17); Calcium 9.1 mg/dL (8.4-10.2); Carbon Dioxide 31 mmol/L (22-30); Chloride 103 mmol/L (98-107); Estimated CRCL calculation 39 ml/min; Estimated Glomerular Filt Rate 58; Glucose 96 mg/dL (65-110); Potassium 4.5 mmol/L (3.4-5.0); Sodium 137 mmol/L (137-145)
[2024-07-20] MEDS: HYDROcodone/acetaminophen (*CRX) 5-325 MG TABLET 1 TAB PO ×3 (06:50→23:22)
--- NOTE | 2024-07-20 08:04 | PCPTNOTE ---
Attempted to see patient for PT, however patient eating breakfast.
[2024-07-20] MEDS: CHOLECALCIFEROL 1,000 UNITS TABLET 2000 UNITS PO (08:16)
[2024-07-20] MEDS: ASPIRIN 325 MG ENTERIC TABLET PO ×2 (08:17→19:25)
[2024-07-20] MEDS: CALCIUM CARBONATE (OSCAL) 500 MG TABLET 1000 MG PO (08:17)
[2024-07-20] MEDS: MULTIVITAMINS THERAPEUTIC TAB (*BKC) 1 TABLET PO (08:17)
[2024-07-20] MEDS: SENNA/DOCUSATE SODIUM TABLET 2 TAB PO (08:17)
[2024-07-20] MEDS: PANTOPRAZOLE 40 MG TABLET PO ×2 (08:17→19:25)
[2024-07-20] MEDS: VITAMIN E 100 UNIT CAPSULE 200 UNIT PO (08:17)
[2024-07-20] MEDS: [UNRECOGNIZED DRUG - OTHER] PO (08:18)
[2024-07-20] MEDS: polyethylene glycoL 3350 17 GM POWD.PACK PO (08:18)
[2024-07-20] MEDS: METHIMAZOLE 2.5 MG PO (08:18)
--- NOTE | 2024-07-20 09:06 | PM.PNORT ---
Progress Note: A&P Assessment and Plan (1) Intertrochanteric fracture of left hip: Qualifiers: Encounter type: subsequent encounter Fracture type: closed Fracture alignment: displaced Fracture healing: with routine healing Qualified Code(s): S72.142D - Displaced intertrochanteric fracture of left femur, subsequent encounter for closed fracture with routine healing Code(s): S72.142A - Displaced intertrochanteric fracture of left femur, initial encounter for closed fracture Status: Acute Assessment and Plan: Postoperative day 4: left hip fracture trochanteric nail. Pain control. PT/OT with weight-bearing as tolerated. FALL RISK. Follow labs. Acute blood loss anemia. Continue to trend H&H. Aspirin for DVT prophylaxis. Patient indicated for acute rehab once medically stable for ambulation, strength, gait (2) Anemia: Qualifiers: Anemia type: other cause Other causes of anemia: acute posthemorrhagic Qualified Code(s): D62 - Acute posthemorrhagic anemia Code(s): D64.9 - Anemia, unspecified Status: Acute Assessment and Plan: Stable. Plan Reviewed history, exam, radiographs and current labs with attending MD and covering surgeon, Dr. Suárez, who agrees with current plan as indicated above. No further recommendations from Dr. Suárez at this time. Subjective Subjective Date/Time Seen: 07/20/24 09:06 Post Op day: 4 Principal diagnosis: Left hip intertrochanteric fracture Interval history: Awake and alert. Sitting up in bed. Some pain left hip. Denies numbness or tingling. Review of Systems Review of Systems: All systems reviewed & are unremarkable except as noted in HPI and below Exam Const: General: comfortable; No acute distress Resp: Effort & Inspection: normal respiratory effort and no audible wheezes Extrem: Right lower extremity: lower leg ( Negative Homans sign), ankle Details: normal ROM ( dorsiflexion and plantar flexion intact) and foot Details: vascular exam Details: dorsalis pedis pulse present and normal capillary refill, tendon exam Details: active flexion normal and active extension normal and motor-sensory exam Details: light-touch normal Location: in all toes; no edema Left lower extremity: normal to inspection, hip/thigh (Dressing clean dry and intact, muscle soft), ankle Details: normal ROM and foot Details: abnormal to inspection Details: other (Ecchymosis lateral ankle and hindfoot, mild swelling), vascular exam Details: dorsalis pedis pulse present and normal capillary refill and motor-sensory exam light-touch normal in all toes; no edema Objective Data Vital Signs Vital Signs: Vital Signs - 24 hr 07/19/24 16:00 07/19/24 20:00 07/19/24 20:11 Temperature 36.4 C Pulse Rate 80 90 Respiratory Rate 16 20 Blood Pressure 126/59 L Pulse Oximetry 95 93 Oxygen Delivery Room Air Room Air Fraction of Inspired Oxygen 21 07/19/24 20:56 07/20/24 05:31 07/20/24 08:06 Temperature 36.8 C 36.4 C L Pulse Rate 87 93 Respiratory Rate 20 16 Blood Pressure 115/44 L 134/61 Pulse Oximetry 95 81 L 98 Oxygen Delivery Fraction of Inspired Oxygen 07/20/24 08:14 07/20/24 08:17 Temperature 36.7 C Pulse Rate 87 Respiratory Rate 16 Blood Pressure 140/70 Pulse Oximetry 97 97 Oxygen Delivery Room Air Fraction of Inspired Oxygen Intake/Output Intake/Output: Intake & Output 07/17/24 07/18/24 07/19/24 07/20/24 23:59 23:59 23:59 23:59 Intake Total 1220 960 720 200 Output Total 600 600 Balance 620 360 720 200 Meds/Results Medications: Active Medications Generic Name Dose Route Start Last Admin Trade Name Freq PRN Reason Stop Dose Admin Acetaminophen 650 mg 07/16/24 14:48 07/19/24 08:16 Acetaminophen 325 Mg Tablet PO 650 mg Q6HR PRN Administration Pain or Fever Hydrocodone Bitart/Acetaminophen 1 tab 07/16/24 14:48 07/20/24 06:50 Hydrocodone/Acetaminophen (*Crx) 5-325 Mg Tablet PO 1 tab Q4H PRN Administration Pain Rated 4-6 Aspirin 325 mg 07/16/24 21:00 07/20/24 08:17 Aspirin 325 Mg Enteric Tablet PO 325 mg Q12HR ALBER Administration Bismuth Subsalicylate 524 mg 07/16/24 17:18 Bismuth Subsalicylate 262 Mg Chewable Tablet PO Q1H PRN Indigestion Calcium Carbonate 1,000 mg 07/17/24 09:00 07/20/24 08:17 Calcium Carbonate (Oscal) 500 Mg Tablet PO 1,000 mg DAILY ALBER Administration Calcium Carbonate 200 mg 07/19/24 11:05 07/19/24 17:20 Calcium Carbonate (Tums) 500 Mg (200 Mg Elemental) PO 200 mg Q6H PRN Administration Indigestion Diltiazem HCl 120 mg 07/20/24 21:00 Diltiazem Hcl Cd 120 Mg Cap.24hr PO HS ALBER Hydromorphone HCl 1 mg 07/16/24 15:02 Hydromorphone Hcl Inj (*Crx) 2 Mg/Ml Vial IV PUSH Q2H PRN Breakthrough Pain Rated 7-10 or NPO Hydromorphone HCl 0.5 mg 07/16/24 15:02 Hydromorphone Hcl Inj (*Crx) 2 Mg/Ml Vial IV PUSH Q2H PRN Breakthrough Pain Rated 4-6 or NPO Hydroxyzine Pamoate 50 mg 07/16/24 14:48 Hydroxyzine Pamoate 25 Mg Capsule PO Q4H PRN Itching Ibuprofen 800 mg in 200 mls @ 400 mls/hr 07/16/24 14:48 Caldolor 800 Mg/200 Ml IVPB Q6H PRN Breakthrough Pain Rated 1-3 or NPO Lisinopril 20 mg 07/20/24 21:00 Lisinopril 20 Mg Tablet PO HS ALBER Lorazepam 1 mg 07/18/24 08:51 07/19/24 23:31 Lorazepam (*Crx) 1 Mg Tablet PO 1 mg BID PRN Administration Anxiety Multivitamins Therapeutic 1 tablet 07/17/24 09:00 07/20/24 08:17 Multivitamins Therapeutic Tab (*Bkc) PO 1 tablet DAILY ALBER Administration Naloxone HCl 0.1 mg 07/16/24 14:48 Naloxone Hcl 0.4 Mg/Ml Vial IV PUSH Q2M PRN Opiate Reversal Methimazole 2.5 Mg 2.5 each 07/17/24 09:00 07/20/24 08:18 Tab Nonformulary PO 08/16/24 08:59 2.5 each Drug DAILY ALBER Administration Ondansetron HCl 4 mg 07/16/24 14:48 Ondansetron Inj 4 Mg/2 Ml Vial IV PUSH Q4H PRN Nausea And Vomiting Pantoprazole Sodium 40 mg 07/16/24 21:00 07/20/24 08:17 Pantoprazole 40 Mg Tablet PO 40 mg Q12HR ALBER Administration Polyethylene Glycol 17 gm 07/17/24 09:00 07/20/24 08:18 Polyethylene Glycol 3350 17 Gm Powd.Pack PO 17 gm QAM ALBER Administration Senna/Docusate Sodium 2 tab 07/16/24 17:00 07/20/24 08:17 Senna/Docusate Sodium Tablet PO 2 tab BID ALBER Administration Vitamin D 2,000 units 07/17/24 09:00 07/20/24 08:16 Cholecalciferol 1,000 Units Tablet PO 2,000 units DAILY [facility]BER Administration Vitamin E 200 unit 07/17/24 09:00 07/20/24 08:17 Vitamin E 100 Unit Capsule PO 200 unit QAM ALBER Administration Radiology Results: ITS Impressions Hip/Pelvis X-Ray 07/16/24 10:39 Impression: Acute, comminuted, significantly displaced and angulated intertrochanteric fracture of the proximal left femur. Chest X-Ray 07/16/24 10:40 Impression: Clear lungs. Cardiomegaly. Labs Labs: Laboratory Results - last 24 hr 07/20/24 04:53 WBC 6.3 RBC 2.71 L Hgb 8.0 L Hct 26.2 L MCV 96.7 MCH 29.5 MCHC 30.5 L RDW 13.4 Plt Count 182 MPV 10.2 Immature Gran % (Auto) 0.3 Neut % (Auto) 59.5 Lymph % (Auto) 22.6 [place] % (Auto) 11.5 H Eos % (Auto) 5.2 H Baso % (Auto) 0.9 Lymph # (Auto) 1.43 [place] # (Auto) 0.7 H Eos # (Auto) 0.3 Baso # (Auto) 0.1 Abs Immat Gran (auto) 0.02 Absolute Neuts (auto) 3.8 Absolute Nucleated RBC 0.000 Nucleated RBC % 0.0 Sodium 137 Potassium 4.5 Chloride 103 Carbon Dioxide 31 H Anion Gap 3 L BUN 29 H Creatinine 0.92 Estim Creat Clear Calc 39 Estimated GFR 58 L Glucose 96 Calcium 9.1 Total Bilirubin 0.4 AST 47 H ALT 28 Alkaline Phosphatase 92 Total Protein 6.0 L Albumin 3.0 L
--- NOTE | 2024-07-20 10:14 | P.PNIM_ITS ---
Progress Note: A&P Assessment and Plan (1) Intertrochanteric fracture of left hip: Qualifiers: Encounter type: subsequent encounter Fracture type: closed Fracture alignment: displaced Fracture healing: with routine healing Qualified Code(s): S72.142D - Displaced intertrochanteric fracture of left femur, subsequent encounter for closed fracture with routine healing Code(s): S72.142A - Displaced intertrochanteric fracture of left femur, initial encounter for closed fracture Status: Acute Assessment and Plan: * Hip/pelvic XR, 07/16: Acute, comminuted, significantly displaced and angulated intertrochanteric fracture of the proximal left femur. Orthopedics consulted, Jose Armando REDDING. discussed operative versus conservative management with the patient, patient would like to proceed with surgical management. * Underwent a trochanteric intramedullary nail, left hip on 07/16. No immediate postop complaints. Denies significant nausea or pain. * Analgesics p.r.n. * PT/OT with weight-bearing as tolerated. * Care coordination consulted for rehab. * Patient had an episode of dizziness while up this morning with therapy NS @100 x 1,000 ml. Encourage oral intake. * Monitor labs. (2) Hyperthyroidism: Code(s): E05.90 - Thyrotoxicosis, unspecified without thyrotoxic crisis or storm Status: Chronic Assessment and Plan: * Continue home medication: Methimazole 2.5 mg daily. (3) Hypertension: Qualifiers: Hypertension type: primary hypertension Qualified Code(s): I10 - Essential (primary) hypertension Code(s): I10 - Essential (primary) hypertension Status: Chronic Assessment and Plan: * Chronic, currently 140/70. Later in day orthostatic (see below). * Continue home medications: Lisinopril and Diltiazem. Stop Lisinopril for now, patient is orthostatic. (4) Orthostatic hypotension: Code(s): I95.1 - Orthostatic hypotension Status: Acute Assessment and Plan: * BP 114/56 sitting, BP 87/55 standing during OT this afternoon. Add Samuel kim, stopped Lisinopril. Continue NS@ 100 ml/hr. Encourage oral intake. Orthostatics daily. * BP 119/50 sitting, BP 99/55 standing during PT this morning. Patient started on NS@100 ml/hr. Encourage oral intake. Subjective Date/time seen: 07/20/24 10:14 Interval history: Patient sitting up in chair with son at bedside. Patient had an episode of dizziness with blood pressure dropping upon standing with PT in the morning and OT in the afternoon. Patient denies chest pain, palpitations, headache, dizziness, nausea, or vomiting. Review of Systems Review of Systems: All systems reviewed & are unremarkable except as noted in HPI and below Exam Const: General: comfortable and no acute distress Resp: Effort & Inspection: normal respiratory effort Auscultation: clear to auscultation bilaterally Cardio: Rate: regular rate Rhythm: regular rhythm GI: GI Palp: Yes Soft to palpation Auscultation: normal bowel sounds Skin: Other: Dressing intact to left hip. Neuro: Speech: normal speech Extrem: General: no pedal edema Psych: Mental Status: mental status grossly normal Affect: normal affect Objective Data Vital Signs Vital Signs: Vital Signs - 24 hr 07/19/24 16:00 07/19/24 20:00 07/19/24 20:11 Temperature 97.6 F Pulse Rate 80 90 Respiratory Rate 16 20 Blood Pressure 126/59 L Pulse Oximetry 95 93 Oxygen Delivery Room Air Room Air Fraction of Inspired Oxygen 21 07/19/24 20:56 07/20/24 05:31 07/20/24 08:06 Temperature 98.2 F 97.5 F L Pulse Rate 87 93 Respiratory Rate 20 16 Blood Pressure 115/44 L 134/61 Pulse Oximetry 95 81 L 98 Oxygen Delivery Fraction of Inspired Oxygen 07/20/24 08:14 07/20/24 08:17 07/20/24 09:30 Temperature 98.1 F Pulse Rate 87 Respiratory Rate 16 Blood Pressure 140/70 119/50 L Pulse Oximetry 97 97 Oxygen Delivery Room Air Fraction of Inspired Oxygen 07/20/24 09:33 Temperature Pulse Rate Respiratory Rate Blood Pressure 99/55 L Pulse Oximetry Oxygen Delivery Fraction of Inspired Oxygen Intake/Output Intake/Output: Intake & Output 07/17/24 07/18/24 07/19/24 07/20/24 23:59 23:59 23:59 23:59 Intake Total 1220 960 720 320 Output Total 600 600 Balance 620 360 720 320 Meds/Results Medications: Active Medications Generic Name Dose Route Start Last Admin Trade Name Freq PRN Reason Stop Dose Admin Acetaminophen 650 mg 07/16/24 14:48 07/19/24 08:16 Acetaminophen 325 Mg Tablet PO 650 mg Q6HR PRN Administration Pain or Fever Hydrocodone Bitart/Acetaminophen 1 tab 07/16/24 14:48 07/20/24 06:50 Hydrocodone/Acetaminophen (*Crx) 5-325 Mg Tablet PO 1 tab Q4H PRN Administration Pain Rated 4-6 Aspirin 325 mg 07/16/24 21:00 07/20/24 08:17 Aspirin 325 Mg Enteric Tablet PO 325 mg Q12HR ALBER Administration Bismuth Subsalicylate 524 mg 07/16/24 17:18 Bismuth Subsalicylate 262 Mg Chewable Tablet PO Q1H PRN Indigestion Calcium Carbonate 1,000 mg 07/17/24 09:00 07/20/24 08:17 Calcium Carbonate (Oscal) 500 Mg Tablet PO 1,000 mg DAILY [facility]BER Administration Calcium Carbonate 200 mg 07/19/24 11:05 07/19/24 17:20 Calcium Carbonate (Tums) 500 Mg (200 Mg Elemental) PO 200 mg Q6H PRN Administration Indigestion Diltiazem HCl 120 mg 07/20/24 21:00 Diltiazem Hcl Cd 120 Mg Cap.24hr PO HS ALBER Hydromorphone HCl 1 mg 07/16/24 15:02 Hydromorphone Hcl Inj (*Crx) 2 Mg/Ml Vial IV PUSH Q2H PRN Breakthrough Pain Rated 7-10 or NPO Hydromorphone HCl 0.5 mg 07/16/24 15:02 Hydromorphone Hcl Inj (*Crx) 2 Mg/Ml Vial IV PUSH Q2H PRN Breakthrough Pain Rated 4-6 or NPO Hydroxyzine Pamoate 50 mg 07/16/24 14:48 Hydroxyzine Pamoate 25 Mg Capsule PO Q4H PRN Itching Ibuprofen 800 mg in 200 mls @ 400 mls/hr 07/16/24 14:48 Caldolor 800 Mg/200 Ml IVPB Q6H PRN Breakthrough Pain Rated 1-3 or NPO Lisinopril 20 mg 07/20/24 21:00 Lisinopril 20 Mg Tablet PO HS [facility] Lorazepam 1 mg 07/18/24 08:51 07/19/24 23:31 Lorazepam (*Crx) 1 Mg Tablet PO 1 mg BID PRN Administration Anxiety Multivitamins Therapeutic 1 tablet 07/17/24 09:00 07/20/24 08:17 Multivitamins Therapeutic Tab (*Bkc) PO 1 tablet DAILY [facility]BER Administration Naloxone HCl 0.1 mg 07/16/24 14:48 Naloxone Hcl 0.4 Mg/Ml Vial IV PUSH Q2M PRN Opiate Reversal Methimazole 2.5 Mg 2.5 each 07/17/24 09:00 07/20/24 08:18 Tab Nonformulary PO 08/16/24 08:59 2.5 each Drug DAILY ALBER Administration Ondansetron HCl 4 mg 07/16/24 14:48 Ondansetron Inj 4 Mg/2 Ml Vial IV PUSH Q4H PRN Nausea And Vomiting Pantoprazole Sodium 40 mg 07/16/24 21:00 07/20/24 08:17 Pantoprazole 40 Mg Tablet PO 40 mg Q12HR ALBER Administration Polyethylene Glycol 17 gm 07/17/24 09:00 07/20/24 08:18 Polyethylene Glycol 3350 17 Gm Powd.Pack PO 17 gm QAM ALBER Administration Senna/Docusate Sodium 2 tab 07/16/24 17:00 07/20/24 08:17 Senna/Docusate Sodium Tablet PO 2 tab BID ALBER Administration Vitamin D 2,000 units 07/17/24 09:00 07/20/24 08:16 Cholecalciferol 1,000 Units Tablet PO 2,000 units DAILY [facility]BER Administration Vitamin E 200 unit 07/17/24 09:00 07/20/24 08:17 Vitamin E 100 Unit Capsule PO 200 unit QAM ALBER Administration Radiology Results: ITS Impressions Hip/Pelvis X-Ray 07/16/24 10:39 Impression: Acute, comminuted, significantly displaced and angulated intertrochanteric fracture of the proximal left femur. Chest X-Ray 07/16/24 10:40 Impression: Clear lungs. Cardiomegaly. Labs Labs: Laboratory Results - last 24 hr 07/20/24 04:53 WBC 6.3 RBC 2.71 L Hgb 8.0 L Hct 26.2 L MCV 96.7 MCH 29.5 MCHC 30.5 L RDW 13.4 Plt Count 182 MPV 10.2 Immature Gran % (Auto) 0.3 Neut % (Auto) 59.5 Lymph % (Auto) 22.6 [place] % (Auto) 11.5 H Eos % (Auto) 5.2 H Baso % (Auto) 0.9 Lymph # (Auto) 1.43 [place] # (Auto) 0.7 H Eos # (Auto) 0.3 Baso # (Auto) 0.1 Abs Immat Gran (auto) 0.02 Absolute Neuts (auto) 3.8 Absolute Nucleated RBC 0.000 Nucleated RBC % 0.0 Sodium 137 Potassium 4.5 Chloride 103 Carbon Dioxide 31 H Anion Gap 3 L BUN 29 H Creatinine 0.92 Estim Creat Clear Calc 39 Estimated GFR 58 L Glucose 96 Calcium 9.1 Total Bilirubin 0.4 AST 47 H ALT 28 Alkaline Phosphatase 92 Total Protein 6.0 L Albumin 3.0 L Quality VTE Prophylaxis VTE prophylaxis: mechanical ordered
[2024-07-20] MEDS: LORazepam (*CRX) 1 MG TABLET PO ×2 (10:28→19:25)
[2024-07-20] MEDS: SODIUM CHLORIDE 0.9% IV 1,000 ML 100 ML IV CONT (10:28)
[2024-07-20] MEDS: dilTIAZem HCL CD 120 MG CAP.24HR PO (20:51)
[2024-07-20] MEDS: ACETAMINOPHEN 325 MG TABLET 650 MG PO (20:51)
[2024-07-21] VITALS (7 sets, daily range): BP systolic 97–153; BP diastolic 50–79; PULSE 84–100; RESP 14–20; TEMP 36.5–36.8; O2SAT 95–100
[2024-07-21 06:19] LABS: Basophils Absolute Auto 0.1 K/mm3 (0.0-0.1); Basophils Percent Auto 0.8 % (0.2-1.2); Eosinophils Absolute Auto 0.4 K/mm3 (0-0.3); Eosinophils Percent Auto 6.6 % (0-4.4); Hematocrit 27.7 % (37.0-47.0); Hemoglobin 8.6 g/dL (12.0-15.0); Immature Granulocyte Absolute 0.02 K/mm3 (0.00-0.031); Immature Granulocyte Percent A 0.3 % (0-0.5); Lymphocytes Absolute Auto 1.14 K/mm3 (0.9-3.2); Lymphocytes Percent Auto 19.2 % (18.3-44.2); Mean Corpuscular Volume 93.3 fl (80-100); Mean Platelet Volume 10.2 fl (7.4-10.4); Monocytes Absolute Auto 0.7 K/mm3 (0.1-0.6); Monocytes Percent Auto 11.3 % (2.6-8.5); Neutrophils Absolute Auto 3.7 K/mm3 (1.3-6.7); Neutrophils Percent Auto 61.8 % (45.5-73.1); Platelet Count Result 211 k/mm3 (150-375); Red Blood Count 2.97 M/mm3 (4.2-5.4); Red Cell Distribution Width 13.6 % (11.5-14.5); White Blood Count 5.9 K/mm3 (4.5-10.0)
[2024-07-21 06:34] LABS: Alanine Aminotransferase 30 U/L (6-35); Albumin Level 3.2 g/dL (3.5-5.1); Alkaline Phosphatase 106 U/L (38-126); Anion Gap 2 mmol/L (4-12); Aspartate Amino Transferase 42 U/L (14-36); Bilirubin,Total 0.6 mg/dL (0.2-1.3); Blood Urea Nitrogen 28 mg/dL (7-17); Calcium 8.7 mg/dL (8.4-10.2); Carbon Dioxide 32 mmol/L (22-30); Chloride 104 mmol/L (98-107); Estimated CRCL calculation 40 ml/min; Estimated Glomerular Filt Rate > 60; Glucose 100 mg/dL (65-110); Potassium 4.1 mmol/L (3.4-5.0); Sodium 138 mmol/L (137-145)
[2024-07-21 08:38] LABS: Iron 77 ug/dL (37-170)
[2024-07-21] MEDS: CALCIUM CARBONATE (OSCAL) 500 MG TABLET 1000 MG PO (08:44)
[2024-07-21] MEDS: LORazepam (*CRX) 1 MG TABLET PO ×2 (08:44→21:25)
[2024-07-21] MEDS: ASPIRIN 325 MG ENTERIC TABLET PO ×2 (08:44→21:25)
[2024-07-21] MEDS: CHOLECALCIFEROL 1,000 UNITS TABLET 2000 UNITS PO (08:44)
[2024-07-21] MEDS: VITAMIN E 100 UNIT CAPSULE 200 UNIT PO (08:45)
[2024-07-21] MEDS: PANTOPRAZOLE 40 MG TABLET PO ×2 (08:45→21:25)
[2024-07-21] MEDS: HYDROcodone/acetaminophen (*CRX) 5-325 MG TABLET 1 TAB PO ×3 (08:45→21:20)
[2024-07-21] MEDS: MULTIVITAMINS THERAPEUTIC TAB (*BKC) 1 TABLET PO (08:45)
[2024-07-21 08:50] LABS: Percent Iron Saturation 26 % (20-50)
[2024-07-21] MEDS: MIDODRINE HCL 2.5 MG TABLET 5 MG PO ×3 (10:09→17:19)
--- NOTE | 2024-07-21 11:11 | PM.IMPN ---
Progress Note: A&P Assessment and Plan (1) Intertrochanteric fracture of left hip: Qualifiers: Encounter type: subsequent encounter Fracture type: closed Fracture alignment: displaced Fracture healing: with routine healing Qualified Code(s): S72.142D - Displaced intertrochanteric fracture of left femur, subsequent encounter for closed fracture with routine healing Code(s): S72.142A - Displaced intertrochanteric fracture of left femur, initial encounter for closed fracture Status: Acute Assessment and Plan: Hip/pelvic XR, 07/16: Acute, comminuted, significantly displaced and angulated intertrochanteric fracture of the proximal left femur. Orthopedics consulted, Jose Armando REDDING. discussed operative versus conservative management with the patient, patient would like to proceed with surgical management. Underwent a trochanteric intramedullary nail, left hip on 07/16. No immediate postop complaints. Denies significant nausea or pain. Analgesics p.r.n. PT/OT with weight-bearing as tolerated. Care coordination consulted for rehab. Patient had an episode of dizziness while up this morning with therapy NS @100 x 1,000 ml. Encourage oral intake. Monitor labs. (2) Hyperthyroidism: Code(s): E05.90 - Thyrotoxicosis, unspecified without thyrotoxic crisis or storm Status: Chronic Assessment and Plan: Continue home medication: Methimazole 2.5 mg daily. (3) Hypertension: Qualifiers: Hypertension type: primary hypertension Qualified Code(s): I10 - Essential (primary) hypertension Code(s): I10 - Essential (primary) hypertension Status: Chronic Assessment and Plan: Chronic, currently 140/70. Later in day orthostatic (see below). Continue home medications: Lisinopril and Diltiazem. Stop Lisinopril for now, patient is orthostatic. (4) Orthostatic hypotension: Code(s): I95.1 - Orthostatic hypotension Status: Acute Assessment and Plan: BP 114/56 sitting, BP 87/55 standing during OT this afternoon. Add Samuel kim, stopped Lisinopril. Continue NS@ 100 ml/hr. Encourage oral intake. Orthostatics daily. BP 119/50 sitting, BP 99/55 standing during PT this morning. Patient started on NS@100 ml/hr. Encourage oral intake. Plan DVT prophylaxis on Sq Lovenox Subjective Date/time seen: 07/21/24 11:11 Interval history: Comfortable at bedside Awaiting normalization of orthostatic hypotension for discharge planning Review of Systems Review of Systems: All systems reviewed & are unremarkable except as noted in HPI and below Exam Const: General: comfortable and no acute distress Other: , female, elderly, nontoxic appearance. HENMT: Face/Nose/Sinus: Normal nares present Mouth: Yes moist mucous membranes Eyes: General: appearance normal, both eyes and all related structures Sclera: sclerae normal Pupils: Equal, round and reactive pupils present EOM: EOMs intact bilaterally Resp: Effort & Inspection: normal respiratory effort Auscultation: clear to auscultation bilaterally Cardio: Rate: regular rate Rhythm: regular rhythm Other: S1-S2 present without murmur, rub, ectopy GI: Auscultation: normal bowel sounds Other: Abdomen soft, nondistended, nontender. Normoactive bowel sounds in all quadrants. Urinary Catheter: Urinary Catheter: patent and draining Skin: General skin exam: normal color and no rashes or lesions noted Other: Dressing intact to left hip. Neuro: General: gait normal Cranial nerves: Yes Equal, round and reactive pupils present Speech: normal speech Motor exam (neuro): 5/5 motor strength present throughout Sensory Exam: normal sensation Other: A&O x4. Extrem: General: normal to inspection and no pedal edema Other: DP 2+ bilaterally Psych: Mental Status: mental status grossly normal Affect: normal affect Other: Pleasant Objective Data Vital Signs Vital Signs: Vital Signs - 24 hr 07/20/24 11:19 07/20/24 11:20 07/20/24 20:00 Temperature Pulse Rate Respiratory Rate Blood Pressure 114/56 L 90/47 L Pulse Oximetry Oxygen Delivery Room Air 07/20/24 20:42 07/20/24 23:55 07/21/24 05:57 Temperature 98.7 F 98.3 F 98.0 F Pulse Rate 98 90 86 Respiratory Rate 16 16 20 Blood Pressure 149/68 H 166/68 H 149/79 H Pulse Oximetry 93 95 100 Oxygen Delivery 07/21/24 08:43 07/21/24 09:51 07/21/24 09:52 Temperature Pulse Rate 95 89 Respiratory Rate 14 14 Blood Pressure 142/55 H 132/61 123/63 Pulse Oximetry 99 98 Oxygen Delivery 07/21/24 09:52 Temperature Pulse Rate 89 Respiratory Rate 14 Blood Pressure 97/50 L Pulse Oximetry 98 Oxygen Delivery Intake/Output Intake/Output: Intake & Output 07/18/24 07/19/24 07/20/24 07/21/24 23:59 23:59 23:59 23:59 Intake Total 209 977 7317 320 Output Total 600 2 Balance 000 171 1467 318 Meds/Results Medications: Active Medications Generic Name Dose Route Start Last Admin Trade Name Freq PRN Reason Stop Dose Admin Acetaminophen 650 mg 07/16/24 14:48 07/20/24 20:51 Acetaminophen 325 Mg Tablet PO 650 mg Q6HR PRN Administration Pain or Fever Hydrocodone Bitart/Acetaminophen 1 tab 07/16/24 14:48 07/21/24 08:45 Hydrocodone/Acetaminophen (*Crx) 5-325 Mg Tablet PO 1 tab Q4H PRN Administration Pain Rated 4-6 Aspirin 325 mg 07/16/24 21:00 07/21/24 08:44 Aspirin 325 Mg Enteric Tablet PO 325 mg Q12HR [facility]BER Administration Bismuth Subsalicylate 524 mg 07/16/24 17:18 Bismuth Subsalicylate 262 Mg Chewable Tablet PO Q1H PRN Indigestion Calcium Carbonate 1,000 mg 07/17/24 09:00 07/21/24 08:44 Calcium Carbonate (Oscal) 500 Mg Tablet PO 1,000 mg DAILY ALBER Administration Calcium Carbonate 200 mg 07/19/24 11:05 07/19/24 17:20 Calcium Carbonate (Tums) 500 Mg (200 Mg Elemental) PO 200 mg Q6H PRN Administration Indigestion Diltiazem HCl 120 mg 07/20/24 21:00 07/20/24 20:51 Diltiazem Hcl Cd 120 Mg Cap.24hr PO 120 mg HS ALBER Administration Hydromorphone HCl 1 mg 07/16/24 15:02 Hydromorphone Hcl Inj (*Crx) 2 Mg/Ml Vial IV PUSH Q2H PRN Breakthrough Pain Rated 7-10 or NPO Hydromorphone HCl 0.5 mg 07/16/24 15:02 Hydromorphone Hcl Inj (*Crx) 2 Mg/Ml Vial IV PUSH Q2H PRN Breakthrough Pain Rated 4-6 or NPO Hydroxyzine Pamoate 50 mg 07/16/24 14:48 Hydroxyzine Pamoate 25 Mg Capsule PO Q4H PRN Itching Ibuprofen 800 mg in 200 mls @ 400 mls/hr 07/16/24 14:48 Caldolor 800 Mg/200 Ml IVPB Q6H PRN Breakthrough Pain Rated 1-3 or NPO Lorazepam 1 mg 07/20/24 10:16 07/21/24 08:44 Lorazepam (*Crx) 1 Mg Tablet PO 1 mg Q12HR [facility] Administration Midodrine 5 mg 07/21/24 10:00 07/21/24 10:09 Midodrine Hcl 2.5 Mg Tablet PO 5 mg TID [facility] Administration Multivitamins Therapeutic 1 tablet 07/17/24 09:00 07/21/24 08:45 Multivitamins Therapeutic Tab (*Bkc) PO 1 tablet DAILY [facility] Administration Naloxone HCl 0.1 mg 07/16/24 14:48 Naloxone Hcl 0.4 Mg/Ml Vial IV PUSH Q2M PRN Opiate Reversal Methimazole 2.5 Mg 0 each 07/21/24 17:00 Tab Nonformulary PO 08/20/24 16:59 Drug DAILY@1700 [facility] Ondansetron HCl 4 mg 07/16/24 14:48 Ondansetron Inj 4 Mg/2 Ml Vial IV PUSH Q4H PRN Nausea And Vomiting Pantoprazole Sodium 40 mg 07/16/24 21:00 07/21/24 08:45 Pantoprazole 40 Mg Tablet PO 40 mg Q12HR [facility] Administration Polyethylene Glycol 17 gm 07/17/24 09:00 07/21/24 08:45 Polyethylene Glycol 3350 17 Gm Powd.Pack PO Not Given QAM [facility] Senna/Docusate Sodium 2 tab 07/16/24 17:00 07/21/24 08:44 Senna/Docusate Sodium Tablet PO Not Given BID [facility] Vitamin D 2,000 units 07/17/24 09:00 07/21/24 08:44 Cholecalciferol 1,000 Units Tablet PO 2,000 units DAILY [facility] Administration Vitamin E 200 unit 07/17/24 09:00 07/21/24 08:45 Vitamin E 100 Unit Capsule PO 200 unit QAM [facility] Administration Radiology Results: ITS Impressions Hip/Pelvis X-Ray 07/16/24 10:39 Impression: Acute, comminuted, significantly displaced and angulated intertrochanteric fracture of the proximal left femur. Chest X-Ray 07/16/24 10:40 Impression: Clear lungs. Cardiomegaly. Labs Labs: Laboratory Results - last 24 hr 07/21/24 05:09 WBC 5.9 RBC 2.97 L Hgb 8.6 L Hct 27.7 L MCV 93.3 MCH 29.0 MCHC 31.0 L RDW 13.6 Plt Count 211 MPV 10.2 Immature Gran % (Auto) 0.3 Neut % (Auto) 61.8 Lymph % (Auto) 19.2 [place] % (Auto) 11.3 H Eos % (Auto) 6.6 H Baso % (Auto) 0.8 Lymph # (Auto) 1.14 [place] # (Auto) 0.7 H Eos # (Auto) 0.4 H Baso # (Auto) 0.1 Abs Immat Gran (auto) 0.02 Absolute Neuts (auto) 3.7 Absolute Nucleated RBC 0.000 Nucleated RBC % 0.0 Sodium 138 Potassium 4.1 Chloride 104 Carbon Dioxide 32 H Anion Gap 2 L BUN 28 H Creatinine 0.88 Estim Creat Clear Calc 40 Estimated GFR > 60 Glucose 100 Calcium 8.7 Iron 77 TIBC 296 % Saturation 26 Ferritin 49.00 Total Bilirubin 0.6 AST 42 H ALT 30 Alkaline Phosphatase 106 Total Protein 6.0 L Albumin 3.2 L Quality VTE Prophylaxis VTE prophylaxis: mechanical ordered
--- NOTE | 2024-07-21 14:36 | P.PNOP_ITS ---
Progress Note: A&P Assessment and Plan (1) Intertrochanteric fracture of left hip: Qualifiers: Encounter type: subsequent encounter Fracture type: closed Fracture alignment: displaced Fracture healing: with routine healing Qualified Code(s): S72.142D - Displaced intertrochanteric fracture of left femur, subsequent encounter for closed fracture with routine healing Code(s): S72.142A - Displaced intertrochanteric fracture of left femur, initial encounter for closed fracture Status: Acute Assessment and Plan: Postoperative day 5: left hip fracture trochanteric nail. Pain control. PT/OT with weight-bearing as tolerated. FALL RISK. Follow labs. Acute blood loss anemia. Continue to trend H&H. Aspirin for DVT prophylaxis. Patient indicated for acute rehab once medically stable for ambulation, strength, gait. Currently unable to independently transfer, ambulate and care for self. Indicated for acute rehab for ADLs, strength, gait, transfer. (2) Anemia: Qualifiers: Anemia type: other cause Other causes of anemia: acute posthemorrhagic Qualified Code(s): D62 - Acute posthemorrhagic anemia Code(s): D64.9 - Anemia, unspecified Status: Acute Assessment and Plan: Stable. Subjective Subjective Date/Time Seen: 07/21/24 14:36 Post Op day: 5 Principal diagnosis: Left hip intertrochanteric fracture Interval history: Awake and alert. Sitting up in bed. Pain left hip. Denies numbness or tingling. unable to independently transfer and ambulate. Exam Const: General: comfortable; No acute distress Resp: Effort & Inspection: normal respiratory effort and no audible wheezes Extrem: Right lower extremity: lower leg ( Negative Homans sign), ankle Details: normal ROM ( dorsiflexion and plantar flexion intact) and foot Details: vascular exam Details: dorsalis pedis pulse present and normal capillary refill, tendon exam Details: active flexion normal and active extension normal and motor-sensory exam Details: light-touch normal Location: in all toes; no edema Left lower extremity: normal to inspection, hip/thigh (Dressing clean dry and intact, muscle soft), ankle Details: normal ROM and foot Details: abnormal to inspection Details: other (Ecchymosis lateral ankle and hindfoot, mild swelling), vascular exam Details: dorsalis pedis pulse present and normal capillary refill and motor-sensory exam light-touch normal in all toes; no edema Objective Data Vital Signs Vital Signs: Vital Signs - 24 hr 07/20/24 20:00 07/20/24 20:42 07/20/24 23:55 Temperature 98.7 F 98.3 F Pulse Rate 98 90 Respiratory Rate 16 16 Blood Pressure 149/68 H 166/68 H Pulse Oximetry 93 95 Oxygen Delivery Room Air 07/21/24 05:57 07/21/24 08:43 07/21/24 09:51 Temperature 98.0 F Pulse Rate 86 95 Respiratory Rate 20 14 Blood Pressure 149/79 H 142/55 H 132/61 Pulse Oximetry 100 99 Oxygen Delivery 07/21/24 09:52 07/21/24 09:52 Temperature Pulse Rate 89 89 Respiratory Rate 14 14 Blood Pressure 123/63 97/50 L Pulse Oximetry 98 98 Oxygen Delivery Intake/Output Intake/Output: Intake & Output 07/18/24 07/19/24 07/20/24 07/21/24 23:59 23:59 23:59 23:59 Intake Total 414 309 5563 560 Output Total 600 2 Balance 039 085 8699 558 Meds/Results Medications: Active Medications Generic Name Dose Route Start Last Admin Trade Name Freq PRN Reason Stop Dose Admin Acetaminophen 650 mg 07/16/24 14:48 07/20/24 20:51 Acetaminophen 325 Mg Tablet PO 650 mg Q6HR PRN Administration Pain or Fever Hydrocodone Bitart/Acetaminophen 1 tab 07/16/24 14:48 07/21/24 13:06 Hydrocodone/Acetaminophen (*Crx) 5-325 Mg Tablet PO 1 tab Q4H PRN Administration Pain Rated 4-6 Aspirin 325 mg 07/16/24 21:00 07/21/24 08:44 Aspirin 325 Mg Enteric Tablet PO 325 mg Q12HR ALBER Administration Bismuth Subsalicylate 524 mg 07/16/24 17:18 Bismuth Subsalicylate 262 Mg Chewable Tablet PO Q1H PRN Indigestion Calcium Carbonate 1,000 mg 07/17/24 09:00 07/21/24 08:44 Calcium Carbonate (Oscal) 500 Mg Tablet PO 1,000 mg DAILY [facility] Administration Calcium Carbonate 200 mg 07/19/24 11:05 07/19/24 17:20 Calcium Carbonate (Tums) 500 Mg (200 Mg Elemental) PO 200 mg Q6H PRN Administration Indigestion Diltiazem HCl 120 mg 07/20/24 21:00 07/20/24 20:51 Diltiazem Hcl Cd 120 Mg Cap.24hr PO 120 mg HS ALBER Administration Enoxaparin Sodium 40 mg 07/22/24 09:00 Enoxaparin 40 Mg/0.4 Ml Syringe SUB-Q DAILY [facility] Hydromorphone HCl 1 mg 07/16/24 15:02 Hydromorphone Hcl Inj (*Crx) 2 Mg/Ml Vial IV PUSH Q2H PRN Breakthrough Pain Rated 7-10 or NPO Hydromorphone HCl 0.5 mg 07/16/24 15:02 Hydromorphone Hcl Inj (*Crx) 2 Mg/Ml Vial IV PUSH Q2H PRN Breakthrough Pain Rated 4-6 or NPO Hydroxyzine Pamoate 50 mg 07/16/24 14:48 Hydroxyzine Pamoate 25 Mg Capsule PO Q4H PRN Itching Ibuprofen 800 mg in 200 mls @ 400 mls/hr 07/16/24 14:48 Caldolor 800 Mg/200 Ml IVPB Q6H PRN Breakthrough Pain Rated 1-3 or NPO Lorazepam 1 mg 07/20/24 10:16 07/21/24 08:44 Lorazepam (*Crx) 1 Mg Tablet PO 1 mg Q12HR ALBER Administration Midodrine 5 mg 07/21/24 10:00 07/21/24 13:06 Midodrine Hcl 2.5 Mg Tablet PO 5 mg TID [facility]BER Administration Multivitamins Therapeutic 1 tablet 07/17/24 09:00 07/21/24 08:45 Multivitamins Therapeutic Tab (*Bkc) PO 1 tablet DAILY [facility] Administration Naloxone HCl 0.1 mg 07/16/24 14:48 Naloxone Hcl 0.4 Mg/Ml Vial IV PUSH Q2M PRN Opiate Reversal Methimazole 2.5 Mg 0 each 07/21/24 17:00 Tab Nonformulary PO 08/20/24 16:59 Drug DAILY@1700 [facility] Ondansetron HCl 4 mg 07/16/24 14:48 Ondansetron Inj 4 Mg/2 Ml Vial IV PUSH Q4H PRN Nausea And Vomiting Pantoprazole Sodium 40 mg 07/16/24 21:00 07/21/24 08:45 Pantoprazole 40 Mg Tablet PO 40 mg Q12HR [facility] Administration Polyethylene Glycol 17 gm 07/17/24 09:00 07/21/24 08:45 Polyethylene Glycol 3350 17 Gm Powd.Pack PO Not Given QAM [facility] Senna/Docusate Sodium 2 tab 07/16/24 17:00 07/21/24 08:44 Senna/Docusate Sodium Tablet PO Not Given BID [facility] Vitamin D 2,000 units 07/17/24 09:00 07/21/24 08:44 Cholecalciferol 1,000 Units Tablet PO 2,000 units DAILY [facility] Administration Vitamin E 200 unit 07/17/24 09:00 07/21/24 08:45 Vitamin E 100 Unit Capsule PO 200 unit QAM [facility] Administration Radiology Results: ITS Impressions Hip/Pelvis X-Ray 07/16/24 10:39 Impression: Acute, comminuted, significantly displaced and angulated intertrochanteric fracture of the proximal left femur. Chest X-Ray 07/16/24 10:40 Impression: Clear lungs. Cardiomegaly. Labs Labs: Laboratory Results - last 24 hr 07/21/24 05:09 WBC 5.9 RBC 2.97 L Hgb 8.6 L Hct 27.7 L MCV 93.3 MCH 29.0 MCHC 31.0 L RDW 13.6 Plt Count 211 MPV 10.2 Immature Gran % (Auto) 0.3 Neut % (Auto) 61.8 Lymph % (Auto) 19.2 [place] % (Auto) 11.3 H Eos % (Auto) 6.6 H Baso % (Auto) 0.8 Lymph # (Auto) 1.14 [place] # (Auto) 0.7 H Eos # (Auto) 0.4 H Baso # (Auto) 0.1 Abs Immat Gran (auto) 0.02 Absolute Neuts (auto) 3.7 Absolute Nucleated RBC 0.000 Nucleated RBC % 0.0 Sodium 138 Potassium 4.1 Chloride 104 Carbon Dioxide 32 H Anion Gap 2 L BUN 28 H Creatinine 0.88 Estim Creat Clear Calc 40 Estimated GFR > 60 Glucose 100 Calcium 8.7 Iron 77 TIBC 296 % Saturation 26 Ferritin 49.00 Total Bilirubin 0.6 AST 42 H ALT 30 Alkaline Phosphatase 106 Total Protein 6.0 L Albumin 3.2 L
[2024-07-21] MEDS: [UNRECOGNIZED DRUG - OTHER] PO (17:18)
[2024-07-21] MEDS: METHIMAZOLE 2.5 MG PO (17:18)
[2024-07-21] MEDS: BISMUTH SUBSALICYLATE 262 MG CHEWABLE TABLET 524 MG PO (17:19)
[2024-07-21] MEDS: ONDANSETRON INJ 4 MG/2 ML VIAL IV PUSH (17:55)
[2024-07-21] MEDS: dilTIAZem HCL CD 120 MG CAP.24HR PO (21:21)
[2024-07-22 05:24] LABS: Basophils Absolute Auto 0.1 K/mm3 (0.0-0.1); Basophils Percent Auto 1.5 % (0.2-1.2); Eosinophils Absolute Auto 0.4 K/mm3 (0-0.3); Eosinophils Percent Auto 7.8 % (0-4.4); Hematocrit 26.4 % (37.0-47.0); Hemoglobin 8.3 g/dL (12.0-15.0); Immature Granulocyte Absolute 0.02 K/mm3 (0.00-0.031); Immature Granulocyte Percent A 0.4 % (0-0.5); Lymphocytes Absolute Auto 1.38 K/mm3 (0.9-3.2); Lymphocytes Percent Auto 25.5 % (18.3-44.2); Mean Corpuscular HGB Conc 31.4 g/dl (32-36); Mean Corpuscular Hemoglobin 29.2 pg (26-34); Mean Platelet Volume 9.8 fl (7.4-10.4); Monocytes Absolute Auto 0.7 K/mm3 (0.1-0.6); Monocytes Percent Auto 12.6 % (2.6-8.5); Neutrophils Absolute Auto 2.8 K/mm3 (1.3-6.7); Neutrophils Percent Auto 52.2 % (45.5-73.1); Platelet Count Result 246 k/mm3 (150-375); Red Blood Count 2.84 M/mm3 (4.2-5.4); Red Cell Distribution Width 13.7 % (11.5-14.5); White Blood Count 5.4 K/mm3 (4.5-10.0)
[2024-07-22 05:34] LABS: Alanine Aminotransferase 31 U/L (6-35); Albumin Level 2.9 g/dL (3.5-5.1); Alkaline Phosphatase 94 U/L (38-126); Anion Gap 2 mmol/L (4-12); Aspartate Amino Transferase 41 U/L (14-36); Bilirubin,Total 0.5 mg/dL (0.2-1.3); Blood Urea Nitrogen 30 mg/dL (7-17); Calcium 8.8 mg/dL (8.4-10.2); Carbon Dioxide 34 mmol/L (22-30); Chloride 103 mmol/L (98-107); Estimated CRCL calculation 37 ml/min; Estimated Glomerular Filt Rate 55; Glucose 93 mg/dL (65-110); Potassium 4.3 mmol/L (3.4-5.0); Sodium 139 mmol/L (137-145)
[2024-07-22 05:38] VITALS: BP 152/62; PULSE 76; RESP 16; TEMP 36.5; O2SAT 96
[2024-07-22 08:00] VITALS: BP 157/24
[2024-07-22] MEDS: ASPIRIN 325 MG ENTERIC TABLET PO ×2 (08:43→21:01)
[2024-07-22] MEDS: LORazepam (*CRX) 1 MG TABLET PO ×2 (08:43→21:01)
[2024-07-22] MEDS: PANTOPRAZOLE 40 MG TABLET PO ×2 (08:43→21:01)
[2024-07-22] MEDS: VITAMIN E 100 UNIT CAPSULE 200 UNIT PO (08:43)
[2024-07-22] MEDS: SENNA/DOCUSATE SODIUM TABLET 2 TAB PO ×2 (08:43→17:05)
[2024-07-22] MEDS: MIDODRINE HCL 2.5 MG TABLET 5 MG PO ×3 (08:43→17:04)
[2024-07-22] MEDS: HYDROcodone/acetaminophen (*CRX) 5-325 MG TABLET 1 TAB PO ×2 (08:43→21:01)
[2024-07-22] MEDS: CHOLECALCIFEROL 1,000 UNITS TABLET 2000 UNITS PO (08:43)
[2024-07-22] MEDS: MULTIVITAMINS THERAPEUTIC TAB (*BKC) 1 TABLET PO (08:43)
[2024-07-22] MEDS: CALCIUM CARBONATE (OSCAL) 500 MG TABLET 1000 MG PO (08:43)
[2024-07-22] MEDS: ENOXAPARIN 40 MG/0.4 ML SYRINGE SUB-Q (08:44)
[2024-07-22 08:49] VITALS: BP 121/66; BP 86/47
[2024-07-22 09:47] LABS: Iron 91 ug/dL (37-170)
[2024-07-22 09:59] LABS: Percent Iron Saturation 28 % (20-50)
[2024-07-22 10:05] LABS: Lactic Acid Reflex 2.3 mmol/L (0.7-2.0)
[2024-07-22] MEDS: droNABinol (*CRX) 2.5 MG CAPSULE 5 MG PO (10:31)
[2024-07-22] MEDS: SODIUM CHLORIDE 0.9% IV 500 ML 150 ML IV CONT (10:31)
[2024-07-22 11:35] LABS: Reflex Lactic Acid Yes or No Add Lactic
--- NOTE | 2024-07-22 11:42 | PM.IMPN ---
Progress Note: A&P Assessment and Plan (1) Intertrochanteric fracture of left hip: Qualifiers: Encounter type: subsequent encounter Fracture type: closed Fracture alignment: displaced Fracture healing: with routine healing Qualified Code(s): S72.142D - Displaced intertrochanteric fracture of left femur, subsequent encounter for closed fracture with routine healing Code(s): S72.142A - Displaced intertrochanteric fracture of left femur, initial encounter for closed fracture Status: Acute Assessment and Plan: Hip/pelvic XR, 07/16: Acute, comminuted, significantly displaced and angulated intertrochanteric fracture of the proximal left femur. Orthopedics consulted, Jose Armando REDD[place]. discussed operative versus conservative management with the patient, patient would like to proceed with surgical management. Underwent a trochanteric intramedullary nail, left hip on 07/16. No immediate postop complaints. Denies significant nausea or pain. Analgesics p.r.n. PT/OT with weight-bearing as tolerated. Care coordination consulted for rehab. (2) Hyperthyroidism: Code(s): E05.90 - Thyrotoxicosis, unspecified without thyrotoxic crisis or storm Status: Chronic Assessment and Plan: Continue home medication: Methimazole 2.5 mg daily. (3) Hypertension: Qualifiers: Hypertension type: primary hypertension Qualified Code(s): I10 - Essential (primary) hypertension Code(s): I10 - Essential (primary) hypertension Status: Chronic Assessment and Plan: Chronic, currently 140/70. Later in day orthostatic (see below). Continue home medications: Lisinopril and Diltiazem. Stop Lisinopril for now, patient is orthostatic. (4) Orthostatic hypotension: Code(s): I95.1 - Orthostatic hypotension Status: Acute Assessment and Plan: Still orthostatic Patient noted poor appetite and this may be contributing to orthostatic hypotension IVF, midodrine and started on Dronabinol for appetite stimulation monitor Plan DVT prophylaxis on Sq Lovenox awaiting improvement in orthostatic blood pressure Subjective Date/time seen: 07/22/24 11:42 Interval history: Comfortable at bedside and still orthostatic today CXR no acute changes Started on Dronabinol, as patient has poor oral intake Review of Systems Review of Systems: All systems reviewed & are unremarkable except as noted in HPI and below Exam Const: General: comfortable and no acute distress Other: , female, elderly, nontoxic appearance. HENMT: Face/Nose/Sinus: Normal nares present Mouth: Yes moist mucous membranes Eyes: General: appearance normal, both eyes and all related structures Sclera: sclerae normal Pupils: Equal, round and reactive pupils present EOM: EOMs intact bilaterally Resp: Effort & Inspection: normal respiratory effort Auscultation: clear to auscultation bilaterally Cardio: Rate: regular rate Rhythm: regular rhythm Other: S1-S2 present without murmur, rub, ectopy GI: Auscultation: normal bowel sounds Other: Abdomen soft, nondistended, nontender. Normoactive bowel sounds in all quadrants. Urinary Catheter: Urinary Catheter: patent and draining Skin: General skin exam: normal color and no rashes or lesions noted Other: Dressing intact to left hip. Neuro: General: gait normal Cranial nerves: Yes Equal, round and reactive pupils present Speech: normal speech Motor exam (neuro): 5/5 motor strength present throughout Sensory Exam: normal sensation Other: A&O x4. Extrem: General: normal to inspection and no pedal edema Other: DP 2+ bilaterally Psych: Mental Status: mental status grossly normal Affect: normal affect Other: Pleasant Objective Data Vital Signs Vital Signs: Vital Signs - 24 hr 07/21/24 16:00 07/21/24 20:57 07/21/24 21:12 Temperature 98.2 F 97.7 F Pulse Rate 88 84 Respiratory Rate 14 16 Blood Pressure 153/74 H 141/62 H Pulse Oximetry 100 97 Oxygen Delivery Room Air 07/21/24 22:35 07/22/24 05:38 07/22/24 08:00 Temperature 98.2 F 97.7 F Pulse Rate 100 76 Respiratory Rate 16 16 Blood Pressure 129/63 152/62 H 157/24 H Pulse Oximetry 95 96 Oxygen Delivery 07/22/24 08:49 07/22/24 08:49 Temperature Pulse Rate Respiratory Rate Blood Pressure 121/66 86/47 L Pulse Oximetry Oxygen Delivery Intake/Output Intake/Output: Intake & Output 07/19/24 07/20/24 07/21/24 07/22/24 23:59 23:59 23:59 23:59 Intake Total 720 3000 1280 236 Output Total 2 Balance 720 3000 1278 236 Meds/Results Medications: Active Medications Generic Name Dose Route Start Last Admin Trade Name Freq PRN Reason Stop Dose Admin Acetaminophen 650 mg 07/16/24 14:48 07/20/24 20:51 Acetaminophen 325 Mg Tablet PO 650 mg Q6HR PRN Administration Pain or Fever Hydrocodone Bitart/Acetaminophen 1 tab 07/16/24 14:48 07/22/24 08:43 Hydrocodone/Acetaminophen (*Crx) 5-325 Mg Tablet PO 1 tab Q4H PRN Administration Pain Rated 4-6 Aspirin 325 mg 07/16/24 21:00 07/22/24 08:43 Aspirin 325 Mg Enteric Tablet PO 325 mg Q12HR ALBER Administration Bismuth Subsalicylate 524 mg 07/16/24 17:18 07/21/24 17:19 Bismuth Subsalicylate 262 Mg Chewable Tablet PO 524 mg Q1H PRN Administration Indigestion Calcium Carbonate 1,000 mg 07/17/24 09:00 07/22/24 08:43 Calcium Carbonate (Oscal) 500 Mg Tablet PO 1,000 mg DAILY [facility] Administration Calcium Carbonate 200 mg 07/19/24 11:05 07/19/24 17:20 Calcium Carbonate (Tums) 500 Mg (200 Mg Elemental) PO 200 mg Q6H PRN Administration Indigestion Diltiazem HCl 120 mg 07/20/24 21:00 07/21/24 21:21 Diltiazem Hcl Cd 120 Mg Cap.24hr PO 120 mg HS [facility] Administration Dronabinol 5 mg 07/22/24 10:17 07/22/24 10:31 Dronabinol (*Crx) 2.5 Mg Capsule PO 5 mg BID [facility] Administration Enoxaparin Sodium 40 mg 07/22/24 09:00 07/22/24 08:44 Enoxaparin 40 Mg/0.4 Ml Syringe SUB-Q 40 mg DAILY [facility] Administration Hydromorphone HCl 1 mg 07/16/24 15:02 Hydromorphone Hcl Inj (*Crx) 2 Mg/Ml Vial IV PUSH Q2H PRN Breakthrough Pain Rated 7-10 or NPO Hydromorphone HCl 0.5 mg 07/16/24 15:02 Hydromorphone Hcl Inj (*Crx) 2 Mg/Ml Vial IV PUSH Q2H PRN Breakthrough Pain Rated 4-6 or NPO Hydroxyzine Pamoate 50 mg 07/16/24 14:48 Hydroxyzine Pamoate 25 Mg Capsule PO Q4H PRN Itching Ibuprofen 800 mg in 200 mls @ 400 mls/hr 07/16/24 14:48 Caldolor 800 Mg/200 Ml IVPB Q6H PRN Breakthrough Pain Rated 1-3 or NPO Sodium Chloride 500 mls @ 150 mls/hr 07/22/24 10:16 07/22/24 10:31 Normal Saline Iv IV CONT 07/22/24 13:35 150 mls/hr .Q3H20M ONE Administration Lorazepam 1 mg 07/20/24 10:16 07/22/24 08:43 Lorazepam (*Crx) 1 Mg Tablet PO 1 mg Q12HR ALBER Administration Midodrine 5 mg 07/21/24 10:00 07/22/24 08:43 Midodrine Hcl 2.5 Mg Tablet PO 5 mg TID [facility]BER Administration Multivitamins Therapeutic 1 tablet 07/17/24 09:00 07/22/24 08:43 Multivitamins Therapeutic Tab (*Bkc) PO 1 tablet DAILY [facility] Administration Naloxone HCl 0.1 mg 07/16/24 14:48 Naloxone Hcl 0.4 Mg/Ml Vial IV PUSH Q2M PRN Opiate Reversal Methimazole 2.5 Mg 0 each 07/21/24 17:00 07/21/24 17:18 Tab Nonformulary PO 08/20/24 16:59 2.5 each Drug DAILY@1700 [facility] Administration Ondansetron HCl 4 mg 07/16/24 14:48 07/21/24 17:55 Ondansetron Inj 4 Mg/2 Ml Vial IV PUSH 4 mg Q4H PRN Administration Nausea And Vomiting Pantoprazole Sodium 40 mg 07/16/24 21:00 07/22/24 08:43 Pantoprazole 40 Mg Tablet PO 40 mg Q12HR [facility] Administration Polyethylene Glycol 17 gm 07/17/24 09:00 07/22/24 08:44 Polyethylene Glycol 3350 17 Gm Powd.Pack PO Not Given QAM [facility] Senna/Docusate Sodium 2 tab 07/16/24 17:00 07/22/24 08:43 Senna/Docusate Sodium Tablet PO 2 tab BID [facility] Administration Vitamin D 2,000 units 07/17/24 09:00 07/22/24 08:43 Cholecalciferol 1,000 Units Tablet PO 2,000 units DAILY [facility] Administration Vitamin E 200 unit 07/17/24 09:00 07/22/24 08:43 Vitamin E 100 Unit Capsule PO 200 unit QAM [facility] Administration Radiology Results: ITS Impressions Hip/Pelvis X-Ray 07/16/24 10:39 Impression: Acute, comminuted, significantly displaced and angulated intertrochanteric fracture of the proximal left femur. Chest X-Ray 07/22/24 09:50 IMPRESSION: 1: NO ACUTE CARDIOPULMONARY DISEASE. Labs Labs: Laboratory Results - last 24 hr 07/22/24 07/22/24 04:54 09:30 WBC 5.4 RBC 2.84 L Hgb 8.3 L Hct 26.4 L MCV 93.0 MCH 29.2 MCHC 31.4 L RDW 13.7 Plt Count 246 MPV 9.8 Immature Gran % (Auto) 0.4 Neut % (Auto) 52.2 Lymph % (Auto) 25.5 [place] % (Auto) 12.6 H Eos % (Auto) 7.8 H Baso % (Auto) 1.5 H Lymph # (Auto) 1.38 [place] # (Auto) 0.7 H Eos # (Auto) 0.4 H Baso # (Auto) 0.1 Abs Immat Gran (auto) 0.02 Absolute Neuts (auto) 2.8 Absolute Nucleated RBC 0.000 Nucleated RBC % 0.0 Sodium 139 Potassium 4.3 Chloride 103 Carbon Dioxide 34 H Anion Gap 2 L BUN 30 H Creatinine 0.97 Estim Creat Clear Calc 37 Estimated GFR 55 L Glucose 93 Lactic Acid 2.3 H Calcium 8.8 Iron 91 TIBC 325 % Saturation 28 Ferritin 59.50 Total Bilirubin 0.5 AST 41 H ALT 31 Alkaline Phosphatase 94 Total Protein 6.0 L Albumin 2.9 L Quality VTE Prophylaxis VTE prophylaxis: mechanical ordered
[2024-07-22 12:09] LABS: Lactic Acid 0.9 mmol/L (0.7-2.0)
[2024-07-22] MEDS: polyethylene glycoL 3350 17 GM POWD.PACK PO (12:27)
[2024-07-22 16:00] VITALS: BP 142/58; PULSE 76; RESP 16; TEMP 36.6; O2SAT 95
[2024-07-22] MEDS: [UNRECOGNIZED DRUG - OTHER] PO (17:04)
[2024-07-22] MEDS: METHIMAZOLE 2.5 MG PO (17:04)
[2024-07-22] MEDS: dilTIAZem HCL CD 120 MG CAP.24HR PO (21:01)
[2024-07-22 21:02] VITALS: BP 129/60; PULSE 70; RESP 16; TEMP 36.3; O2SAT 97
[2024-07-23] VITALS (16 sets, daily range): BP systolic 102–179; BP diastolic 47–77; PULSE 72–113; RESP 16–18; TEMP 36.5–36.9; O2SAT 91–100
[2024-07-23 05:02] LABS: Basophils Absolute Auto 0.1 K/mm3 (0.0-0.1); Basophils Percent Auto 0.7 % (0.2-1.2); Eosinophils Absolute Auto 0.5 K/mm3 (0-0.3); Eosinophils Percent Auto 6.5 % (0-4.4); Hematocrit 29.9 % (37.0-47.0); Hemoglobin 9.4 g/dL (12.0-15.0); Immature Granulocyte Absolute 0.04 K/mm3 (0.00-0.031); Immature Granulocyte Percent A 0.6 % (0-0.5); Lymphocytes Absolute Auto 1.48 K/mm3 (0.9-3.2); Mean Corpuscular HGB Conc 31.4 g/dl (32-36); Mean Corpuscular Hemoglobin 29.3 pg (26-34); Mean Corpuscular Volume 93.1 fl (80-100); Mean Platelet Volume 9.5 fl (7.4-10.4); Monocytes Absolute Auto 0.7 K/mm3 (0.1-0.6); Monocytes Percent Auto 9.8 % (2.6-8.5); Neutrophils Absolute Auto 4.3 K/mm3 (1.3-6.7); Neutrophils Percent Auto 61.4 % (45.5-73.1); Platelet Count Result 318 k/mm3 (150-375); Red Blood Count 3.21 M/mm3 (4.2-5.4); Red Cell Distribution Width 13.8 % (11.5-14.5); White Blood Count 7.1 K/mm3 (4.5-10.0)
[2024-07-23 05:15] LABS: Alanine Aminotransferase 37 U/L (6-35); Albumin Level 3.6 g/dL (3.5-5.1); Alkaline Phosphatase 122 U/L (38-126); Anion Gap 3 mmol/L (4-12); Aspartate Amino Transferase 46 U/L (14-36); Bilirubin,Total 0.7 mg/dL (0.2-1.3); Blood Urea Nitrogen 28 mg/dL (7-17); Calcium 9.3 mg/dL (8.4-10.2); Carbon Dioxide 35 mmol/L (22-30); Chloride 99 mmol/L (98-107); Estimated CRCL calculation 36 ml/min; Estimated Glomerular Filt Rate 54; Glucose 112 mg/dL (65-110); Lactic Acid Reflex 1.9 mmol/L (0.7-2.0); Magnesium 2.2 mg/dL (1.6-2.3); Sodium 137 mmol/L (137-145)
[2024-07-23] MEDS: CHOLECALCIFEROL 1,000 UNITS TABLET 2000 UNITS PO (09:10)
[2024-07-23] MEDS: ASPIRIN 325 MG ENTERIC TABLET PO ×2 (09:10→21:42)
[2024-07-23] MEDS: CALCIUM CARBONATE (OSCAL) 500 MG TABLET 1000 MG PO (09:10)
[2024-07-23] MEDS: MIDODRINE HCL 10 MG TABLET PO ×3 (09:12→17:15)
[2024-07-23] MEDS: PANTOPRAZOLE 40 MG TABLET PO ×2 (09:12→21:42)
[2024-07-23] MEDS: MULTIVITAMINS THERAPEUTIC TAB (*BKC) 1 TABLET PO (09:12)
[2024-07-23] MEDS: LORazepam (*CRX) 1 MG TABLET PO ×2 (09:12→21:42)
[2024-07-23] MEDS: SENNA/DOCUSATE SODIUM TABLET 2 TAB PO ×2 (09:12→17:15)
[2024-07-23] MEDS: ONDANSETRON INJ 4 MG/2 ML VIAL IV PUSH (09:13)
[2024-07-23] MEDS: polyethylene glycoL 3350 17 GM POWD.PACK PO (09:13)
[2024-07-23] MEDS: ACETAMINOPHEN 325 MG TABLET 650 MG PO ×2 (09:13→21:44)
[2024-07-23] MEDS: VITAMIN E 100 UNIT CAPSULE 200 UNIT PO (09:13)
[2024-07-23] MEDS: ENOXAPARIN 40 MG/0.4 ML SYRINGE SUB-Q (09:13)
--- NOTE | 2024-07-23 10:03 | P.PNIM_ITS ---
Progress Note: A&P Assessment and Plan (1) Intertrochanteric fracture of left hip: Qualifiers: Encounter type: subsequent encounter Fracture type: closed Fracture alignment: displaced Fracture healing: with routine healing Qualified Code(s): S72.142D - Displaced intertrochanteric fracture of left femur, subsequent encounter for closed fracture with routine healing Code(s): S72.142A - Displaced intertrochanteric fracture of left femur, initial encounter for closed fracture Status: Acute Assessment and Plan: * Hip/pelvic XR, 07/16: Acute, comminuted, significantly displaced and angulated intertrochanteric fracture of the proximal left femur. * Underwent a trochanteric intramedullary nail, left hip on 07/16. * Analgesics p.r.n. * PT/OT with weight-bearing as tolerated. * Care coordination consulted for rehab. (2) Hyperthyroidism: Code(s): E05.90 - Thyrotoxicosis, unspecified without thyrotoxic crisis or storm Status: Chronic Assessment and Plan: * Continue home medication: Methimazole 2.5 mg daily. (3) Hypertension: Qualifiers: Hypertension type: primary hypertension Qualified Code(s): I10 - Essential (primary) hypertension Code(s): I10 - Essential (primary) hypertension Status: Chronic Assessment and Plan: * Chronic, currently 140/70. Later in day orthostatic (see below). * Continue home medications: Lisinopril and Diltiazem. Stop Lisinopril for now, patient is orthostatic. (4) Orthostatic hypotension: Code(s): I95.1 - Orthostatic hypotension Status: Acute Assessment and Plan: Still orthostatic increased Midodrine to 10mg tid monitor Plan DVT prophylaxis on Sq Lovenox awaiting improvement in orthostatic blood pressure Subjective Date/time seen: 07/23/24 10:03 Interval history: Comfortable at bedside and still orthostatic today Increased Midodrine to 10mg tid Review of Systems Review of Systems: All systems reviewed & are unremarkable except as noted in HPI and below Exam Const: General: comfortable and no acute distress Other: , female, elderly, nontoxic appearance. HENMT: Face/Nose/Sinus: Normal nares present Mouth: Yes moist mucous membranes Eyes: General: appearance normal, both eyes and all related structures Sclera: sclerae normal Pupils: Equal, round and reactive pupils present EO M: EOMs intact bilaterally Resp: Effort & Inspection: normal respiratory effort Auscultation: clear to auscultation bilaterally Cardio: Rate: regular rate Rhythm: regular rhythm Other: S1-S2 present without murmur, rub, ectopy GI: Auscultation: normal bowel sounds Other: Abdomen soft, nondistended, nontender. Normoactive bowel sounds in all quadrants. Urinary Catheter: Urinary Catheter: patent and draining Skin: General skin exam: normal color and no rashes or lesions noted Other: Dressing intact to left hip. Neuro: General: gait normal Cranial nerves: Yes Equal, round and reactive pupils present Speech: normal speech Motor exam (neuro): 5/5 motor strength present throughout Sensory Exam: normal sensation Other: A&O x4. Extrem: General: normal to inspection and no pedal edema Other: DP 2+ bilaterally Psych: Mental Status: mental status grossly normal Affect: normal affect Other: Pleasant Objective Data Vital Signs Vital Signs: Vital Signs - 24 hr 07/22/24 16:00 07/22/24 20:55 07/22/24 21:02 Temperature 97.9 F 97.3 F L Pulse Rate 76 70 Respiratory Rate 16 16 Blood Pressure 142/58 H 129/60 Pulse Oximetry 95 97 Oxygen Delivery Room Air 07/23/24 00:00 07/23/24 05:26 07/23/24 07:27 Temperature 97.7 F 97.8 F Pulse Rate 75 72 85 Respiratory Rate 16 18 Blood Pressure 131/67 133/65 179/77 H Pulse Oximetry 91 99 92 Oxygen Delivery 07/23/24 07:30 07/23/24 07:40 Temperature Pulse Rate 75 113 H Respiratory Rate Blood Pressure 155/64 H 122/56 L Pulse Oximetry 100 97 Oxygen Delivery Intake/Output Intake/Output: Intake & Output 07/20/24 07/21/24 07/22/24 07/23/24 23:59 23:59 23:59 23:59 Intake Total 3000 1280 1136 840 Output Total 2 1000 1100 Balance 3000 1278 136 -260 Meds/Results Medications: Active Medications Generic Name Dose Route Start Last Admin Trade Name Freq PRN Reason Stop Dose Admin Acetaminophen 650 mg 07/16/24 14:48 07/23/24 09:13 Acetaminophen 325 Mg Tablet PO 650 mg Q6HR PRN Administration Pain or Fever Hydrocodone Bitart/Acetaminophen 1 tab 07/16/24 14:48 07/22/24 21:01 Hydrocodone/Acetaminophen (*Crx) 5-325 Mg Tablet PO 1 tab Q4H PRN Administration Pain Rated 4-6 Aspirin 325 mg 07/16/24 21:00 07/23/24 09:10 Aspirin 325 Mg Enteric Tablet PO 325 mg Q12HR ALBER Administration Bismuth Subsalicylate 524 mg 07/16/24 17:18 07/21/24 17:19 Bismuth Subsalicylate 262 Mg Chewable Tablet PO 524 mg Q1H PRN Administration Indigestion Calcium Carbonate 1,000 mg 07/17/24 09:00 07/23/24 09:10 Calcium Carbonate (Oscal) 500 Mg Tablet PO 1,000 mg DAILY [facility] Administration Calcium Carbonate 200 mg 07/19/24 11:05 07/19/24 17:20 Calcium Carbonate (Tums) 500 Mg (200 Mg Elemental) PO 200 mg Q6H PRN Administration Indigestion Diltiazem HCl 120 mg 07/20/24 21:00 07/22/24 21:01 Diltiazem Hcl Cd 120 Mg Cap.24hr PO 120 mg HS [facility] Administration Enoxaparin Sodium 40 mg 07/22/24 09:00 07/23/24 09:13 Enoxaparin 40 Mg/0.4 Ml Syringe SUB-Q 40 mg DAILY [facility] Administration Hydromorphone HCl 1 mg 07/16/24 15:02 Hydromorphone Hcl Inj (*Crx) 2 Mg/Ml Vial IV PUSH Q2H PRN Breakthrough Pain Rated 7-10 or NPO Hydromorphone HCl 0.5 mg 07/16/24 15:02 Hydromorphone Hcl Inj (*Crx) 2 Mg/Ml Vial IV PUSH Q2H PRN Breakthrough Pain Rated 4-6 or NPO Hydroxyzine Pamoate 50 mg 07/16/24 14:48 Hydroxyzine Pamoate 25 Mg Capsule PO Q4H PRN Itching Ibuprofen 800 mg in 200 mls @ 400 mls/hr 07/16/24 14:48 Caldolor 800 Mg/200 Ml IVPB Q6H PRN Breakthrough Pain Rated 1-3 or NPO Lorazepam 1 mg 07/22/24 21:00 07/23/24 09:12 Lorazepam (*Crx) 1 Mg Tablet PO 1 mg Q12HR [facility]BER Administration Midodrine 10 mg 07/23/24 09:00 07/23/24 09:12 Midodrine Hcl 10 Mg Tablet PO 10 mg TID [facility] Administration Multivitamins Therapeutic 1 tablet 07/17/24 09:00 07/23/24 09:12 Multivitamins Therapeutic Tab (*Bkc) PO 1 tablet DAILY [facility] Administration Naloxone HCl 0.1 mg 07/16/24 14:48 Naloxone Hcl 0.4 Mg/Ml Vial IV PUSH Q2M PRN Opiate Reversal Methimazole 2.5 Mg 0 each 07/21/24 17:00 07/22/24 17:04 Tab Nonformulary PO 08/20/24 16:59 2.5 each Drug DAILY@1700 [facility] Administration Ondansetron HCl 4 mg 07/16/24 14:48 07/23/24 09:13 Ondansetron Inj 4 Mg/2 Ml Vial IV PUSH 4 mg Q4H PRN Administration Nausea And Vomiting Pantoprazole Sodium 40 mg 07/16/24 21:00 07/23/24 09:12 Pantoprazole 40 Mg Tablet PO 40 mg Q12HR ALBER Administration Polyethylene Glycol 17 gm 07/17/24 09:00 07/23/24 09:13 Polyethylene Glycol 3350 17 Gm Powd.Pack PO 17 gm QAM [facility] Administration Senna/Docusate Sodium 2 tab 07/16/24 17:00 07/23/24 09:12 Senna/Docusate Sodium Tablet PO 2 tab BID [facility]BER Administration Vitamin D 2,000 units 07/17/24 09:00 07/23/24 09:10 Cholecalciferol 1,000 Units Tablet PO 2,000 units DAILY [facility] Administration Vitamin E 200 unit 07/17/24 09:00 07/23/24 09:13 Vitamin E 100 Unit Capsule PO 200 unit QAM [facility] Administration Radiology Results: ITS Impressions Hip/Pelvis X-Ray 07/16/24 10:39 Impression: Acute, comminuted, significantly displaced and angulated intertrochanteric fracture of the proximal left femur. Chest X-Ray 07/22/24 09:50 IMPRESSION: 1: NO ACUTE CARDIOPULMONARY DISEASE. Labs Labs: Laboratory Results - last 24 hr 07/22/24 07/22/24 07/23/24 09:30 11:50 04:56 WBC 7.1 RBC 3.21 L Hgb 9.4 L Hct 29.9 L MCV 93.1 MCH 29.3 MCHC 31.4 L RDW 13.8 Plt Count 318 MPV 9.5 Immature Gran % (Auto) 0.6 H Neut % (Auto) 61.4 Lymph % (Auto) 21.0 [place] % (Auto) 9.8 H Eos % (Auto) 6.5 H Baso % (Auto) 0.7 Lymph # (Auto) 1.48 [place] # (Auto) 0.7 H Eos # (Auto) 0.5 H Baso # (Auto) 0.1 Abs Immat Gran (auto) 0.04 H Absolute Neuts (auto) 4.3 Absolute Nucleated RBC 0.000 Nucleated RBC % 0.0 Sodium 137 Potassium 4.0 Chloride 99 Carbon Dioxide 35 H Anion Gap 3 L BUN 28 H Creatinine 0.99 Estim Creat Clear Calc 36 Estimated GFR 54 L Glucose 112 H Lactic Acid 2.3 H 0.9 1.9 Calcium 9.3 Magnesium 2.2 % Saturation 28 Ferritin 59.50 Total Bilirubin 0.7 AST 46 H ALT 37 H Alkaline Phosphatase 122 Total Protein 6.0 L Albumin 3.6 Quality VTE Prophylaxis VTE prophylaxis: mechanical ordered
--- NOTE | 2024-07-23 10:49 | PCNWS ---
Weekly nutritional screen. Patient is tolerating current regular diet with adequate charted intake. No wt loss in EMR. Ensure ordered and in place, pt would like Ensure Clear, will change order. No further nutrition recommendations at this time.
[2024-07-23 13:15] LABS: IFOB Positive Control Positive; Immunochemical Fecal Occult Bl Negative (N)
[2024-07-23] MEDS: METHIMAZOLE 2.5 MG PO (17:15)
[2024-07-23] MEDS: [UNRECOGNIZED DRUG - OTHER] PO (17:15)
[2024-07-23] MEDS: dilTIAZem HCL CD 120 MG CAP.24HR PO (21:42)
[2024-07-24] MEDS: HYDROcodone/acetaminophen (*CRX) 5-325 MG TABLET 1 TAB PO ×2 (00:20→12:58)
[2024-07-24 06:25] VITALS: BP 168/74; PULSE 85; RESP 16; TEMP 37; O2SAT 98
[2024-07-24] MEDS: ENOXAPARIN 40 MG/0.4 ML SYRINGE SUB-Q (08:40)
[2024-07-24] MEDS: ASPIRIN 325 MG ENTERIC TABLET PO (08:40)
[2024-07-24] MEDS: PANTOPRAZOLE 40 MG TABLET PO (08:40)
[2024-07-24] MEDS: MIDODRINE HCL 10 MG TABLET PO ×2 (08:41→12:58)
[2024-07-24] MEDS: LORazepam (*CRX) 1 MG TABLET PO (08:41)
[2024-07-24] MEDS: ACETAMINOPHEN 325 MG TABLET 650 MG PO (08:50)
[2024-07-24 10:30] VITALS: BP 139/58; PULSE 96; O2SAT 93
[2024-07-24 10:33] VITALS: BP 114/69; PULSE 79; O2SAT 100
[2024-07-24 10:37] VITALS: BP 123/61; PULSE 114; O2SAT 100
--- NOTE | 2024-07-24 11:45 | P.DS_ITS ---
DS: Admitting Diagnosis Discharge Date 07/24/24 Admitting Diagnosis Fall DS: Discharge Diagnosis Discharge Diagnosis (1) Orthostatic hypotension: Code(s): I95.1 - Orthostatic hypotension Status: Acute (2) Intertrochanteric fracture of left hip: Qualifiers: Encounter type: subsequent encounter Fracture type: closed Fracture alignment: displaced Fracture healing: with routine healing Qualified Code(s): S72.142D - Displaced intertrochanteric fracture of left femur, subsequent encounter for closed fracture with routine healing Code(s): S72.142A - Displaced intertrochanteric fracture of left femur, initial encounter for closed fracture Status: Acute DS: Summary Hospital Course Hospital Course: 84 y/o F with PMH of TIA, HTN, GERD, dysphagia, and anxiety presents here for evaluation post fall. ER eval VS at presentation: 97.9? F, HR 86, RR 16, 166/91, and 100% on RA. ED workup showed: No leukocytosis, no anemia, no significant electrolyte derangements, creatinine 0.94 and GFR 57 (at baseline). Hip/pelvic XR showed an acute comminuted significantly displaced and angulated intertrochanteric fracture of the proximal left femur. CXR showed clear lungs and cardiomegaly. Ortho was consulted and patient underwent Trochanteric intramedullary nail left hip fracture, ortho placed patietn on ASPirin for DVT prophylaxis However patient's stay was complicated by orthostatic hypotension. Eventually controlled with Midodrine at 10mg tid today. Patient discharged to acute Rehab. Continue other home meds, discussed with patient that Midodrine 14 days worth is prescribed and she shoudl follow closely with her PCP for monitoring. F/u with PCP in 3-5 days F/u with ortho as instructed Time Spent with Patient Time attestation: Total time spent providing and/or coordinating discharge services: DS: Data Data Completed and Pending Labs on day of discharge: Labs from last 24 hours 07/23/24 12:51 Stl Occult Blood (IFOB) Negative Discharge Plan Discharge Attending physician on discharge: Nate Kauffman Consulting providers: Alvarado Suárez Discharging Clinician: Nate Kauffman Anticipated Discharge Date/Time: 07/24/24 11:39 Patient Disposition: Inpatient Rehab Facility Activity: may shower, no driving and follow weight bearing status Diet: as tolerated Wound Care Instructions: follow printed instructions Discharge Instructions: Postoperative Hip Fracture Instructions Dr. Alvarado Suárez [phone] * Dressing to be changed daily with an island dressing beginning on post op day #2. May stop dressing changes at post op day #14. No sutures/keenan will need to be removed. Can allow Dermabond to fall off naturally. * Weight bearing: Weight bearing as tolerated. * You may shower with your dressing but do not submerge in a bath tub. * Do not drive or operate machinery until you are released by your surgeon. * Do not walk without a walker for any reason until you are released by your surgeon. * DVT prophylaxis x28 days post op. * Continue to apply ice to the hip intermittently for additional pain relief. Protect your skin with a towel or pillow case. * Continue to follow strict hip fracture precautions. * Please contact our office with any questions/concerns regarding your hip at [phone]. * Follow up appointment instructions indicated below. Patient Language: German Stand Alone Forms: General Discharge Information Follow-up/Referrals: Alvarado Suárez MD [Physician] - 09/03/24 10:15 am Discharge Medications: New hydrocodone-acetaminophen 5-325 mg Tablet 1 tablet PO Q4-6H PRN (Reason: pain) Qty: 40 0RF aspirin 325 mg Tablet,Delayed Release (Dr/Ec) 325 mg PO Q12HR 28 Days Qty: 56 0RF midodrine 10 mg Tablet 10 mg PO TID 14 Days Qty: 42 0RF Continued methimazole 5 mg tablet 2.5 mg PO QPM diltiazem HCl 120 mg capsule,extended release 24hr 120 mg PO DAILY aspirin [Adult Low Dose Aspirin] 81 mg tablet,delayed release (DR/EC) 81 mg PO DAILY lisinopril 20 mg tablet 20 mg PO DAILY Qty: 30 0RF coenzyme Q10 [Co Q-10] 50 mg capsule 50 mg PO DAILY cholecalciferol (vitamin D3) 50 mcg (2,000 unit) capsule 50 mcg PO DAILY calcium carbonate [Calcium 500] 500 mg calcium (1,250 mg) tablet,chewable 2,500 mg PO DAILY vitamin E 200 unit capsule 200 unit PO DAILY multivitamin Tablet 1 tablet PO DAILY lorazepam 1 mg tablet 1 mg PO Q12H ergocalciferol (vitamin D2) [Vitamin D2] 1,250 mcg (50,000 unit) capsule 1,250 mcg PO WEEKLY Qty: 12 3RF omeprazole 20 mg capsule,delayed release(DR/EC) 20 mg PO BID Qty: 60 5RF Date of admission: 07/16/24 13:06 Primary Care Provider: Lizett Ames Admitting Provider: Juanito Quinteros Attending physician on admission: Juanito Quinteros Condition: Stable
--- NOTE | 2024-07-24 18:42 | PC.NURSE ---
Physician General Practice has reviewed and agrees with assessments/charting done by Earnestine Maria LPN
== END 2024-07-24 13:47 | DRG 481 ==
LOC: ANHED 11:54 → ANH2MED 12:25
PROVIDERS: Nurse Practitioner Family; Orthopaedic Surgery; Student in an Organized Health Care Education/Training Program; Admitting Provider General Practice; Emergency Provider Emergency Medicine; PCP Family Medicine; Visit Provider Internal Medicine
PROC: 0QS736Z Reposition Left Upper Femur with Intramedullary Internal Fixation Device, Percutaneous Approach (ICD-10-PCS; CPT 27245; principal; 2024-07-16 14:00)
DX: S72.142A Displaced intertrochanteric fracture of left femur, initial encounter for closed fracture (principal); D62 Acute posthemorrhagic anemia; I10 Essential (primary) hypertension; I95.1 Orthostatic hypotension; E05.80 Other thyrotoxicosis without thyrotoxic crisis or storm; T46.2X5A Adverse effect of other antidysrhythmic drugs, initial encounter; K57.30 Diverticulosis of large intestine without perforation or abscess without bleeding; K21.9 Gastro-esophageal reflux disease without esophagitis; R13.10 Dysphagia, unspecified; F41.9 Anxiety disorder, unspecified; W18.09XA Striking against other object with subsequent fall, initial encounter; Z86.73 Personal history of transient ischemic attack (TIA), and cerebral infarction without residual deficits; Z79.82 Long term (current) use of aspirin
CPT/HCPCS: 36415; 71045; 73502; 80048; 80053; 81001; 82274; 82728; 83540; 83550; 83605; 83735; 85025; 85610; 85730; 86850; 86900; 86901; 93005; 96361; 96374; 96375; 96376; 97110; 97116; 97161; 97166; 97530; 97535; 99199; 99285; A9270; C1713; G0378; J0690; J1100; J1171; J1650; J1885; J2003; J2405; J2704; J3010; J7030; J7040; J7120

== ENCOUNTER 2025-03-07 13:49 | Outpatient (CLI) | payer MEDICARE, SELFPAY ==
--- NOTE | ~2025-03-07 | CT_ITS ---
EXAM/PROCEDURE: CTA abdomen pelvis HISTORY: HTN COMPARISON: July 19, 2011 TECHNIQUE: IV contrast enhanced CT aortography of the abdomen and pelvis FINDINGS: ANGIOGRAPHIC FINDINGS: The abdominal aorta is normal size throughout. Mild to moderate scattered atherosclerotic plaque disease present. Celiac axis, both mesenteric and both renal arteries are patent. Pelvic inflow and outflow arteries are patent. NONANGIOGRAPHIC FINDINGS: No bulky mesenteric or retroperitoneal lymphadenopathy or masses. Minimal fibrotic appearing changes in the lung bases which otherwise clear. Mild to moderate cardiomegaly. In the abdomen and pelvis, small low-density lesions likely representing small cysts. Liver and adrenal glands kidneys spleen pancreas and stomach otherwise appear stable. Gallbladder appears removed. IMPRESSION: Other than mild to moderate scattered aphthous chronic plaque disease, the aorta and visualized arteries are patent and normal in size. Other nonangiographic findings as detailed above. Reviewed, dictated and finalized at location A. [facility] IMPRESSION: Other than mild to moderate scattered aphthous chronic plaque disease, the aort a and visualized arteries are patent and normal in size. Other nonangiographic findings as detailed above.
[2025-03-07 14:08] LABS: Estimated Glomerular Filt Rate 48
== END 2025-03-07 13:50 | disposition home or self-care (01) ==
PROVIDERS: PCP Student in an Organized Health Care Education/Training Program
DX: I10 Essential (primary) hypertension (principal)
CPT/HCPCS: 74174; Q9967

== ENCOUNTER 2025-03-09 12:22 | Emergency (ER) | payer MEDICARE, SELFPAY ==
--- NOTE | ~2025-03-09 | XR_ITS ---
Examination: XR chest 2V Clinical History: cough x 4 days Comparison: 07/22/2024 Technique: PA and Lateral Findings: Mild cardiomegaly. Lungs clear. Hyperinflation. No acute bony abnormality. Osteopenia. IMPRESSION: 1. No acute cardiopulmonary findings. Reviewed, dictated and finalized at location R. TING CONTRACT MINER
--- OUTSIDE RECORDS SUMMARY | 2025-03-09 11:30 | XMS_ITS | Encounter Summary ---
Author Organization [facility] Address [address] [place] [address] Care Team Providers Care Transfer Controller Name Role Phone Lizett Ames MD Primary Care Provider [phone] Reason for Visit * Reason Comments Cough Cough, body aches, s neezing, weakness, diarrhea, fatigue x 4 days Encounter Details Date Type Department Care Team (Late st Contact Info) Description 03/09/2025 11:30 AM FIELD ARTILLERY RADAR OPERATOR Office Visit [facility] at [address] [phone] Bonnie Travis NP [address] [place] [address] [address] [place] [address] Hypotension, unspecified hypotension type (Primary Dx); Acute cough Social History Tobacco Use Types Packs/Day Years Used Date Smoking Tobacco: Never Smokeless Tobacco: Never Alcohol Use Standard Drinks/Week Comments Yes 0 (1 standard drink = 0.6 oz pur e alcohol) Comments No Sex and Gender Information Value Date Recorded Sex Assigned at Not on file Legal Sex Female 12:57 AM FIELD ARTILLERY RADAR OPERATOR Gender Identity Not on file Sexual Orientation Not on file documented as of this encounter Last Filed Vital Signs Vital Sign Reading Time Taken Comments Blood Pressure 90/62 03/09/2025 11:52 AM FIELD ARTILLERY RADAR OPERATOR Pulse 75 03/09/2025 11:28 AM FIELD ARTILLERY RADAR OPERATOR Temperature 36.7 C (98 F) 03/09/2025 11:28 AM FIELD ARTILLERY RADAR OPERATOR Respiratory Rate 18 03/09/2025 11:28 AM FIELD ARTILLERY RADAR OPERATOR Oxygen Saturation 96% 03/09/2025 11:28 AM FIELD ARTILLERY RADAR OPERATOR Inhaled Oxygen Concentration - - Weight 55.8 kg (123 lb) 03/09/2025 11:28 AM FIELD ARTILLERY RADAR OPERATOR Height 167.6 cm (5' 6) 03/09/2025 11:28 AM FIELD ARTILLERY RADAR OPERATOR Body Mass Index 19.85 03/09/2025 11:28 AM FIELD ARTILLERY RADAR OPERATOR documented in this encounter Plan of Treatment Not on file documented as of this encounter Procedures Procedure Name Priority Date/Time Associated Diagnosis Comments ECG 12-LEAD Routine 03/09/2025 11:44 AM FIELD ARTILLERY RADAR OPERATOR Hypotension, unspecified hypotension type documented in this encounter Results * ECG 12 lead (03/09/2025 11:44 AM FIELD ARTILLERY RADAR OPERATOR) Bonnie Travis NP ECG ORDERABLES Edited Result - Final documented in this encounter Visit Diagnoses Diagnosis Hypotension, unspecified hypotension type- Primary Acute cough documented in this encounter Historical Medications * This list may reflect changes made after this encounter. spironolactone (ALDACTONE) 25 mg tablet Take 1 tablet (25 mg total) by mouth daily 02/08/2025 metoprolol XL (TOPROL-XL) 100 mg 24 hr tablet Take 1 tablet (100 mg total) by mouth daily 01/27/2025 melatonin tablet Take by mouth nightly as needed 08/07/2024 famotidine 20 mg tablet Take 1 tablet (20 mg total) by mouth 2 (two) times a day 02/13/2025 amLODIPine (NORVASC) 5 mg tablet Take 1 tablet (5 mg total) by mouth daily 02/22/2025 added in this encounter Additional Health Concerns Infection Onset Date Last Indicated Resolved Time COVID: Suspected 03/09/2025 03/09/2025 03/09/2025 12:09 PM FIELD ARTILLERY RADAR OPERATOR documented as of this encounter Care Teams Transfer Controller Relationship Specialty Start Date End Date Lizett Ames MD PCP - General Family Medicine 11/09/21 documented as of this encounter
--- OUTSIDE RECORDS SUMMARY | 2025-03-09 11:30 | XMS_ITS | Encounter Summary ---
Author Organization [facility] Address [address] [place] [address] Care Team Providers Care Molecular Biologist Name Role Phone Lizett Ames MD Primary Care Provider [phone] Reason for Visit * Reason Comments Cough Cough, body aches, s neezing, weakness, diarrhea, fatigue x 4 days Encounter Details Date Type Department Care Team (Late st Contact Info) Description 03/09/2025 11:30 AM CASTING TRUCKER Office Visit [facility] at [address] [phone] Bonnie Travis NP [address] [place] [address] [address] [place] [address] Hypotension, unspecified hypotension type (Primary Dx); Acute cough Social History Tobacco Use Types Packs/Day Years Used Date Smoking Tobacco: Never Smokeless Tobacco: Never Alcohol Use Standard Drinks/Week Comments Yes 0 (1 standard drink = 0.6 oz pur e alcohol) Comments No Sex and Gender Information Value Date Recorded Sex Assigned at Not on file Legal Sex Female 12:57 AM CASTING TRUCKER Gender Identity Not on file Sexual Orientation Not on file documented as of this encounter Last Filed Vital Signs Vital Sign Reading Time Taken Comments Blood Pressure 90/62 03/09/2025 11:52 AM CASTING TRUCKER Pulse 75 03/09/2025 11:28 AM CASTING TRUCKER Temperature 36.7 C (98 F) 03/09/2025 11:28 AM CASTING TRUCKER Respiratory Rate 18 03/09/2025 11:28 AM CASTING TRUCKER Oxygen Saturation 96% 03/09/2025 11:28 AM CASTING TRUCKER Inhaled Oxygen Concentration - - Weight 55.8 kg (123 lb) 03/09/2025 11:28 AM CASTING TRUCKER Height 167.6 cm (5' 6) 03/09/2025 11:28 AM CASTING TRUCKER Body Mass Index 19.85 03/09/2025 11:28 AM CASTING TRUCKER documented in this encounter Plan of Treatment Not on file documented as of this encounter Procedures Procedure Name Priority Date/Time Associated Diagnosis Comments ECG 12-LEAD Routine 03/09/2025 11:44 AM CASTING TRUCKER Hypotension, unspecified hypotension type documented in this encounter Results * ECG 12 lead (03/09/2025 11:44 AM CASTING TRUCKER) Bonnie Travis NP ECG ORDERABLES Edited Result [...] COVID: Suspected 03/09/2025 03/09/2025 03/09/2025 12:09 PM CASTING TRUCKER documented as of this encounter Care Teams Molecular Biologist Relationship Specialty Start Date End Date Lizett Ames MD PCP - General Family Medicine 11/09/21 documented as of this encounter
[2025-03-09 12:26] VITALS: BP 151/59; PULSE 67; RESP 18; TEMP 36.6; O2SAT 99
--- NOTE | 2025-03-09 12:27 | ECG_ITS ---
Test Date: 2025-03-09 13:03:53 Measurements Intervals [place] Rate: 69 P: 82 IN: 128 QRS: 70 QRSD: 84 T: 38 QT: 412 QTc: 441 Interpretive Statements SINUS RHYTHM WITH OCCASIONAL SUPRAVENTRICULAR PREMATURE COMPLEXES BORDERLINE ECG No previous ECG available for comparison Electronically Signed On 03-09-2025 13:20:10 ACCOUNT ASSISTANT by Tarun Arthur D.O.
--- NOTE | 2025-03-09 12:28 | ED.RECABL ---
HPI - Recheck/Abnormal Lab/Rx General Chief Complaint: Recheck/Abnormal Lab/Rx <Shaila Soler APRN - Last Filed: 03/09/25 12:30> Stated Complaint: FLU S/SX HYPOTENSION <Shaila Soler APRN - Last Filed: 03/09/25 12:30> Time Seen by Provider: 03/09/25 12:28 <Shaila Soler APRN - Last Filed: 03/09/25 12:30> Focused HPI: Patient is an 84-year-old female who presents to the ER from urgent care. She reports she has been having flu-like symptoms for at past 4 days. The symptoms include diarrhea, cough, weakness, and congestion. Patient reports she called her primary care provider earlier who advised her to come in for further evaluation. She arrived at urgent care and 1 of their blood pressure readings was in the 50s. Patient reports at that time she experience blurry vision. EMS reports her blood pressure has gone up following IV fluids. Patient door sys a history of high blood pressure and takes ?4 blood pressure medications, along with a recent broken hip. She denies any chest pain, shortness of breath, or headache. GENERAL: Well-appearing, well-nourished, and in no acute distress. HEAD: Normocephalic, atraumatic. CHEST: Clear to auscultation. ?No respiratory distress. HEART: Regular rate and rhythm.? NEURO: ?Alert and oriented x3. Patient screened in triage and initial orders placed.? ?Additional care and disposition to be based upon?diagnostic testing and treatment. <Shaila Soler APRN - Last Filed: 03/09/25 12:30> History of Present Illness HPI narrative: Agree with HPI. Patient feels at her baseline at this time. <Ming Penny DO - Last Filed: 03/09/25 21:45> Related Data Home Medications: Home Medications ?Medication ?Instructions ?Recorded ?Confirmed ?Last Taken ?Type calcium carbonate (Calcium 500) 2,500 mg PO DAILY 10/27/20 12/28/24 07/23/24 History multivitamin 1 tablet PO DAILY 10/27/20 12/28/24 07/23/24 History aspirin 81 mg tablet,delayed 81 mg PO DAILY 10/04/24 12/28/24 Unknown History release (Adult Low Dose Aspirin) vitamin E (dl, acetate) 180 mg 180 mg PO DAILY 10/04/24 12/28/24 Unknown History (400 unit) capsule zoledronic acid 4 mg intravenous 4 mg IV .YEARLY 10/04/24 12/28/24 Unknown History solution lisinopril 40 mg tablet 40 mg PO DAILY 10/25/24 12/28/24 Unknown History metoprolol succinate 100 mg 100 mg PO DAILY 02/03/25 Unknown History tablet,extended release 24 hr <Shaila Soler BUILDING TRADES TEACHER - Last Filed: 03/09/25 12:30> Allergies/Adverse Reactions: Allergies Allergy/AdvReac Type Severity Reaction Status Date / Time nitrofurantoin Allergy Unknown Unknown Verified 03/09/25 12:23 <Shaila Soler BUILDING TRADES TEACHER - Last Filed: 03/09/25 12:30> Review of Systems Review of Systems: All systems reviewed & are unremarkable except as noted in HPI and below <Ming Penny DO - Last Filed: 03/09/25 21:45> [facility] Past Medical History Medical History: Medical History Broken hip (~07/16/24) Orthostatic hypotension 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 Hemorrhoids Diverticulosis GERD (gastroesophageal reflux disease) Thyroid Nodule Dysphagia Intertrochanteric fracture of left hip Nausea TIA (transient ischemic attack) Hypertension <Shaila Soler APRN - Last Filed: 03/09/25 12:30> Surgical History Surgical History: Surgical History History of hip surgery Hx of hysterectomy <Shiala Soler APRN - Last Filed: 03/09/25 12:30> Family History Family History: Family History Father Hypertension Family history of pancreatic cancer Grandparent Carcinoma of colon Mother Family history of Alzheimer's disease <Shaila Soler APRN - Last Filed: 03/09/25 12:30> Social History Social History: Social History Smoking status: Never smoker Second hand tobacco smoke exposure: No Alcohol intake: former Substance use: never Substance use type: does not use Lack of Transportation: No Lack of Food: Never True Current Housing: I Have Housing Concerned About Future Housing: No Difficulty Paying Gas/Electric Bills: No Difficulty Paying for Meds: No Currently Unemployed: No Education: Master's Degree or Higher Difficulty w/ Childcare or Family Care: No Living arrangements: with family Additional living arrangements comments: primary optical instrument inspector for who has alzheimers Occupation/Education: retired Gender identity (if verbalized by the patient): Female Spiritual care concerns: No <Shaila Soler, BUILDING TRADES TEACHER - Last Filed: 03/09/25 12:30> Exam Narrative: APPEARANCE: No acute distress, nontoxic, resting in bed EYES: EOMI HEENT: Normocephalic, atraumatic, mild posterior oropharyngeal erythema without exudates RESPIRATORY: No respiratory distress Clear to auscultation bilaterally with no rhonchi wheezing or rales. CARDIOVASCULAR: Regular rate and rhythm without murmurs rubs or gallops. ABDOMINAL: Soft, nontender, nondistended, no rebound or guarding MUSCULOSKELETAl: Moves all extremities. No clubbing, cyanosis or edema. NEURO: Awake and alert. Following commands, speech normal, no focal deficits SKIN:: Warm, dry. No rashes lesions or abrasions PSYCHIATRIC: Normal affect/mood, <Ming Penny DO - Last Filed: 03/09/25 21:45> Course Vital Signs Vital signs: Vital Signs Temperature 98 F 03/09/25 12:26 Pulse Rate 67 03/09/25 12:26 Respiratory Rate 18 03/09/25 12:26 Blood Pressure 151/59 H 03/09/25 12:26 Pulse Oximetry 99 03/09/25 12:26 Oxygen Delivery Room Air 03/09/25 12:26 Temperature 98 F 03/09/25 12:26 Pulse Rate 84 03/09/25 17:19 Respiratory Rate 19 03/09/25 17:19 Blood Pressure 139/99 H 03/09/25 17:19 Pulse Oximetry 98 03/09/25 17:19 Oxygen Delivery Room Air 03/09/25 12:26 <Shaila Soler, BUILDING TRADES TEACHER - Last Filed: 03/09/25 12:30> Vital Signs Temperature 98 F 03/09/25 12:26 Pulse Rate 67 03/09/25 12:26 Respiratory Rate 18 03/09/25 12:26 Blood Pressure 151/59 H 03/09/25 12:26 Pulse Oximetry 99 03/09/25 12:26 Oxygen Delivery Room Air 03/09/25 12:26 Temperature 98 F 03/09/25 12:26 Pulse Rate 84 03/09/25 17:19 Respiratory Rate 19 03/09/25 17:19 Blood Pressure 139/99 H 03/09/25 17:19 Pulse Oximetry 98 03/09/25 17:19 Oxygen Delivery Room Air 03/09/25 12:26 <Ming Penny DO - Last Filed: 03/09/25 21:45> [facility] Narrative Medical decision making narrative: 84-year-old female Presenting for lightheadedness and congestion. On initial evaluation patient was in no acute distress afebrile, hemodynamic stable. Differentials include but are not limited to: Viral syndrome, strep pharyngitis, viral pharyngitis, sinusitis, laryngitis, BARREL RIB MATTING MACHINE OPERATOR, RPA, vasovagal syncope, arrhythmia, medication side effect Notable exam findings: Heart and lungs clear. Mild oropharyngeal erythema. I personally reviewed the patient's lab result. Notable lab findings: Mild leukocytosis at 10.5, CMP without significant abnormalities. UA clear. I personally reviewed the patient's images and interpret as follows: Chest x-ray: Normal cardiac silhouette, no consolidations, no pleural effusions, no pulmonary vascular congestion I personally reviewed the patient's EKGs: Normal sinus rhythm rate of 69, occasional PACs, normal axis, normal intervals, no acute ST or T-wave changes Patient remained stable and asymptomatic throughout her ED course. Suspect that she may have had a vasovagal reaction at urgent care that caused her symptoms there. Her blood pressure has in the 150 systolic since I took over care. Patient was deemed appropriate discharge at this time. She was educated on supportive care regarding viral infections. Patient and family were agreeable to the plan. Given strict return precautions. <Ming Penny DO - Last Filed: 03/09/25 21:45> Differential Diagnosis Differential Diagnosis: Viral syndrome, strep pharyngitis, viral pharyngitis, sinusitis, laryngitis, BARREL RIB MATTING MACHINE OPERATOR, RPA, vasovagal syncope <Ming Penny DO - Last Filed: 03/09/25 21:45> Lab Data Result diagrams: 03/09/25 13:10 03/09/25 13:10 <Shailaleodan Soler APRN - Last Filed: 03/09/25 12:30> Labs: Lab Results 03/09/25 03/09/25 Range/Units 13:10 16:26 WBC 10.5 H (4.5-10.0) K/mm3 RBC 4.36 (4.2-5.4) M/mm3 Hgb 12.9 (12.0-15.0) g/dL Hct 40.4 (37.0-47.0) % MCV 92.7 (80-100) fl MCH 29.6 (26-34) pg MCHC 31.9 L (32-36) g/dl RDW 12.8 (11.5-14.5) % Plt Count 257 (150-375) k/mm3 MPV 10.2 (7.4-10.4) fl Immature Gran % (Auto) 0.3 (0-0.5) % Neut % (Auto) 73.9 H (45.5-73.1) % Lymph % (Auto) 11.1 L (18.3-44.2) % [place] % (Auto) 13.5 H (2.6-8.5) % Eos % (Auto) 0.7 (0-4.4) % Baso % (Auto) 0.5 (0.2-1.2) % Lymph # (Auto) 1.16 (0.9-3.2) K/mm3 [place] # (Auto) 1.4 H (0.1-0.6) K/mm3 Eos # (Auto) 0.1 (0-0.3) K/mm3 Baso # (Auto) 0.1 (0.0-0.1) K/mm3 Abs Immat Gran (auto) 0.03 (0.00-0.031) K/mm3 Absolute Neuts (auto) 7.7 H (1.3-6.7) K/mm3 Absolute Nucleated RBC 0.000 (0.0-0.012) K/mm3 Nucleated RBC % 0.0 (0.0-0.2) % Sodium 139 (137-145) mmol/L Potassium 4.5 (3.4-5.0) mmol/L Chloride 105 (98-107) mmol/L Carbon Dioxide 26 (22-30) mmol/L Anion Gap 8 (4-12) mmol/L BUN 28 H (7-17) mg/dL Creatinine 1.05 H (0.7-1.0) mg/dL Estim Creat Clear Calc 31 ml/min Estimated GFR 50 L (59 - ) Glucose 112 H (65-110) mg/dL Lactic Acid 0.9 (0.7-2.0) mmol/L Calcium 9.8 (8.4-10.2) mg/dL Magnesium 1.8 (1.6-2.3) mg/dL Total Bilirubin 0.6 (0.2-1.3) mg/dL AST 60 H (14-36) U/L ALT 32 (6-35) U/L Alkaline Phosphatase 139 H (38-126) U/L Total Protein 7.5 (6.3-8.2) g/dL Albumin 4.1 (3.5-5.1) g/dL Urine Color Yellow (Yellow) Urine Appearance Clear (Clear) Urine pH 5.0 (5.0-9.0) Ur Specific [place] 1.021 (1.001-1.035) Urine Protein 1+ H (Negative) mg/dL Urine Glucose (UA) Negative (Negative) mg/dL Urine Ketones Negative (Negative) mg/dL Ur Blood (Man) Trace (Negative) Urine Nitrate Negative (Negative) Urine Bilirubin Negative (Negative) Urine Urobilinogen 0.2 (<2.0) mg/dL Leukocyte Esterase Rfl Trace H (Negative) ALEKSEY/UL Urine RBC 0-2 (0-2) /hpf Urine WBC 0-5 (0-3) /hpf Ur Squamous Epith Cells None seen (Few) /hpf Urine Bacteria None seen /hpf Urine Casts 3-5 Influenza A (RT-PCR) Negative (Negative) Influenza B (RT-PCR) Negative (Negative) RSV (RT-PCR) Negative (Negative) SARS-CoV-2 RNA (RT-PCR) Negative (Negative) <Shaila Soler, BUILDING TRADES TEACHER - Last Filed: 03/09/25 12:30> Lab Results 03/09/25 03/09/25 Range/Units 13:10 16:26 WBC 10.5 H (4.5-10.0) K/mm3 RBC 4.36 (4.2-5.4) M/mm3 Hgb 12.9 (12.0-15.0) g/dL Hct 40.4 (37.0-47.0) % MCV 92.7 (80-100) fl MCH 29.6 (26-34) pg MCHC 31.9 L (32-36) g/dl RDW 12.8 (11.5-14.5) % Plt Count 257 (150-375) k/mm3 MPV 10.2 (7.4-10.4) fl Immature Gran % (Auto) 0.3 (0-0.5) % Neut % (Auto) 73.9 H (45.5-73.1) % Lymph % (Auto) 11.1 L (18.3-44.2) % [place] % (Auto) 13.5 H (2.6-8.5) % Eos % (Auto) 0.7 (0-4.4) % Baso % (Auto) 0.5 (0.2-1.2) % Lymph # (Auto) 1.16 (0.9-3.2) K/mm3 [place] # (Auto) 1.4 H (0.1-0.6) K/mm3 Eos # (Auto) 0.1 (0-0.3) K/mm3 Baso # (Auto) 0.1 (0.0-0.1) K/mm3 Abs Immat Gran (auto) 0.03 (0.00-0.031) K/mm3 Absolute Neuts (auto) 7.7 H (1.3-6.7) K/mm3 Absolute Nucleated RBC 0.000 (0.0-0.012) K/mm3 Nucleated RBC % 0.0 (0.0-0.2) % Sodium 139 (137-145) mmol/L Potassium 4.5 (3.4-5.0) mmol/L Chloride 105 (98-107) mmol/L Carbon Dioxide 26 (22-30) mmol/L Anion Gap 8 (4-12) mmol/L BUN 28 H (7-17) mg/dL Creatinine 1.05 H (0.7-1.0) mg/dL Estim Creat Clear Calc 31 ml/min Estimated GFR 50 L (59 - ) Glucose 112 H (65-110) mg/dL Lactic Acid 0.9 (0.7-2.0) mmol/L Calcium 9.8 (8.4-10.2) mg/dL Magnesium 1.8 (1.6-2.3) mg/dL Total Bilirubin 0.6 (0.2-1.3) mg/dL AST 60 H (14-36) U/L ALT 32 (6-35) U/L Alkaline Phosphatase 139 H (38-126) U/L Total Protein 7.5 (6.3-8.2) g/dL Albumin 4.1 (3.5-5.1) g/dL Urine Color Yellow (Yellow) Urine Appearance Clear (Clear) Urine pH 5.0 (5.0-9.0) Ur Specific [place] 1.021 (1.001-1.035) Urine Protein 1+ H (Negative) mg/dL Urine Glucose (UA) Negative (Negative) mg/dL Urine Ketones Negative (Negative) mg/dL Ur Blood (Man) Trace (Negative) Urine Nitrate Negative (Negative) Urine Bilirubin Negative (Negative) Urine Urobilinogen 0.2 (<2.0) mg/dL Leukocyte Esterase Rfl Trace H (Negative) ALEKSEY/UL Urine RBC 0-2 (0-2) /hpf Urine WBC 0-5 (0-3) /hpf Ur Squamous Epith Cells None seen (Few) /hpf Urine Bacteria None seen /hpf Urine Casts 3-5 Influenza A (RT-PCR) Negative (Negative) Influenza B (RT-PCR) Negative (Negative) RSV (RT-PCR) Negative (Negative) SARS-CoV-2 RNA (RT-PCR) Negative (Negative) <Ming Penny DO - Last Filed: 03/09/25 21:45> Imaging Data Radiologist's impression: ITS Impressions Chest X-Ray 03/09/25 14:08 IMPRESSION: 1. No acute cardiopulmonary findings. <Shaila Soler APRN - Last Filed: 03/09/25 12:30> ITS Impressions Chest X-Ray 03/09/25 14:08 IMPRESSION: 1. No acute cardiopulmonary findings. <Ming Penny DO - Last Filed: 03/09/25 21:45> Discharge Plan Discharge Clinical Impression: Vasovagal reaction, Viral URI <Shaila Soler APRN - Last Filed: 03/09/25 12:30> Patient Disposition: Home <Shaila Soler APRN - Last Filed: 03/09/25 12:30> Condition: Stable <Shaila Soler APRN - Last Filed: 03/09/25 12:30> Instructions: Antibiotic Form, Viral Syndrome (ED) <Shaila Soler APRN - Last Filed: 03/09/25 12:30> Additional Instructions: You may take Zyrtec, Hilaria, or Claritin. You may also use nasal saline sprays, and Flonase for symptoms. Follow-up with your PCP in the next week for re-evaluation. Return to the ED for any new or worsening symptoms. <Shaila Soler APRN - Last Filed: 03/09/25 12:30> Patient Language: Bangladeshi <Shaila Soler APRN - Last Filed: 03/09/25 12:30> Prescriptions: No Action lisinopril 40 mg tablet 40 mg PO DAILY metoprolol succinate 100 mg tablet extended release 24 hr 100 mg PO DAILY calcium carbonate [Calcium 500] 500 mg calcium (1,250 mg) tablet,chewable 2,500 mg PO DAILY multivitamin Tablet 1 tablet PO DAILY aspirin [Adult Low Dose Aspirin] 81 mg tablet,delayed release (DR/EC) 81 mg PO DAILY vitamin E (dl, acetate) 180 mg (400 unit) capsule 180 mg PO DAILY zoledronic acid 4 mg recon soln 4 mg IV .YEARLY famotidine 20 mg tablet 20 mg PO BID Qty: 60 3RF lorazepam 1 mg tablet 1 mg PO Q12H PRN (Reason: anxiety) Qty: 60 0RF methimazole 5 mg tablet 2.5 mg PO QPM Qty: 30 0RF cholecalciferol (vitamin D3) 50 mcg (2,000 unit) capsule 50 mcg PO DAILY Qty: 30 0RF <Shaila Soler APRN - Last Filed: 03/09/25 12:30> Follow-up/Referrals: Brie Judge PA-C [Primary Care Provider, Family Practice] <Shaila Soler APRN - Last Filed: 03/09/25 12:30>
[2025-03-09 13:32] LABS: Alanine Aminotransferase 32 U/L (6-35); Albumin Level 4.1 g/dL (3.5-5.1); Alkaline Phosphatase 139 U/L (38-126); Anion Gap 8 mmol/L (4-12); Aspartate Amino Transferase 60 U/L (14-36); Bilirubin,Total 0.6 mg/dL (0.2-1.3); Blood Urea Nitrogen 28 mg/dL (7-17); Calcium 9.8 mg/dL (8.4-10.2); Carbon Dioxide 26 mmol/L (22-30); Chloride 105 mmol/L (98-107); Estimated CRCL calculation 31 ml/min; Estimated Glomerular Filt Rate 50; Glucose 112 mg/dL (65-110); Magnesium 1.8 mg/dL (1.6-2.3); Potassium 4.5 mmol/L (3.4-5.0); Sodium 139 mmol/L (137-145); Total Protein 7.5 g/dL (6.3-8.2)
[2025-03-09 13:43] LABS: Hematocrit 40.4 % (37.0-47.0); Hemoglobin 12.9 g/dL (12.0-15.0); Immature Granulocyte Percent A 0.3 % (0-0.5); Lymphocytes Absolute Auto 1.16 K/mm3 (0.9-3.2); Mean Corpuscular HGB Conc 31.9 g/dl (32-36); Mean Corpuscular Hemoglobin 29.6 pg (26-34); Mean Corpuscular Volume 92.7 fl (80-100); Nucleated Red Blood Cells Absolute Auto 0.000 K/mm3 (0.0-0.012); Nucleated Red Blood Cells Perc 0.0 % (0.0-0.2); Platelet Count Result 257 k/mm3 (150-375); Red Blood Count 4.36 M/mm3 (4.2-5.4); White Blood Count 10.5 K/mm3 (4.5-10.0)
[2025-03-09 13:58] LABS: Influenza A QL RT-PCR Negative (Negative); Influenza B QL RT-PCR Negative (Negative); RSV RNA, RT-PCR Negative (Negative); SARS-CoV-2 RNA PCR Negative (Negative)
--- OUTSIDE RECORDS SUMMARY | 2025-03-09 14:14 | XMS_ITS | Encounter Summary ---
Author Organization [facility] Address [address] [place] [address] Phone Care Team Providers Care Lamp Assembler Name Role Phone Makeda Harris MD Primary Care Provider [phone] Lizett Ames MD Primary Care Provider [phone] Encounter Details Date Type Department Care Team [...] on file Legal Sex Female 12:57 AM PLASTERER TENDER Gender Identity Not on file Sexual Orientation [...] Diagnoses Not on filedocumented in this encounter Additional Health Concerns Infection Onset Date Last Indicated Resolved Time COVID: Suspected 03/09/2025 03/09/2025 03/09/2025 12:09 PM PLASTERER TENDER documented as of this encounter Care Teams Lamp Assembler Relationship Specialty Start Date End Date Makeda Harris MD PCP - General Family Practice 03/24/18 11/08/21 Lizett Ames MD PCP - General Family Medicine 11/09/21 documented as of this encounter
--- OUTSIDE RECORDS SUMMARY | 2025-03-09 14:14 | XMS_ITS | Encounter Summary ---
Author Organization [facility] Address [address] [place] [address] Care Team Providers Care Aerial Photograph Interpreter Name Role Phone Makeda Pillai MD Primary Care [facility] Encounter Details Date Type Department Care Team (Late st Contact Info) Description 02/28/2025 Results Follow-Up [facility] [address] [place] [phone] Belkys Webb RN BASIC METABOLIC PANEL Social History Tobacco Use Types Packs/Day Years Used Date Smoking Tobacco: Never Smokeless Tobacco: Never Alcohol Use Standard Drinks/Week Comments Yes 3.3 (1 standard drink = 0.6 oz p ure alcohol) glass of wine 3 times a week Comments No Sex and Gender Information Value Date Recorded Sex Assigned at Not on file Legal Sex Female 11:31 AM NUISANCE ANIMAL DAMAGE CONTROL AGENT Gender Identity Not on file Sexual Orientation Not on file Occupation Industry Job Start Date Job End Date Not on file Not on file Not on file Not on file Not on file Not on file Not on file Not on file documented as of this encounter Plan of Treatment Upcoming Encounters Date Type Department Care Team (Late st Contact Info) Description 04/29/2025 10:45 AM NUISANCE ANIMAL DAMAGE CONTROL AGENT Office Visit [facility] At [address] [place] [address] Chaz Olvera MD [address] [place] [address] [address] [place], [place] [phone] documented as of this encounter Visit Diagnoses Not on filedocumented in this encounter Care Teams Aerial Photograph Interpreter Relationship Specialty Start Date End Date Makeda Pillai MD [address] [place] [phone] PCP - General Family Practice 09/08/18 documented as of this encounter
--- OUTSIDE RECORDS SUMMARY | 2025-03-09 14:14 | XMS_ITS | Clinical Summary ---
Author Organization [facility] Address [address] [place] [address] Phone Care Team Providers Care Electrical Engineering Director Name Role Phone Makeda Pillai MD Primary [...] CHEWABLE) 81 mg Tablet, Chewable daily. Active LORazepam (ATIVAN) 2 mg tablet Take 10 mg by mouth 3 times daily. Active ZOLEDRONIC FRVB-IISYIYGH-P ATER IV Inject by intravenous injection. Taking once a year.Last dose was on June 07 Active methIMAzole (TAPAZOLE) 5 mg tablet Take 5 mg by mouth daily. Active zoledronic acid (ZOMETA) 4 mg/5 mL Solution Inject by intravenous injection. Active omeprazole (PriLOSEC) 20 mg Capsule, Delayed Release(E.C.) Take 20 mg by mouth 2 times daily. Active calcium carbonate + vitamin D (CALTRATE+D) 600 mg-10 mcg (400 unit) Tablet Take 1 Tablet by mouth daily. Active ergocalciferol (VITAMIN D2) 50,000 unit capsule Take 50,000 Units by mouth. 1 Active melatonin 3 mg Tablet Take by mouth nightly as needed for Insomnia. Active famotidine (PEPCID) 10 mg tablet Take 10 mg by mouth 2 times daily. Active lisinopriL (PRINIVIL) 40 mg tablet Take 1 Tablet (40 mg) by mouth daily. 90 Tablet 4 5 Active metoprolol succinate (TOPROL XL) 100 mg Extended Release 24 hour tablet Take 1 Tablet (100 mg) by mouth daily. 90 Tablet 4 5 Active spironolactone (ALDACTONE) 25 mg tablet Take 1 Tablet (25 mg) by mouth daily. 90 Tablet 1 5 Active amLODIPine (NORVASC) 5 mg tablet Take 1 Tablet (5 mg) by mouth daily. 90 Tablet 1 5 Active Active Problems Patient Care Coordination No te Formatting of this note migh t be different from the original. Dr. Chaz Olvera - Hat Presser () Problem Noted Date Diagnosed Date Stage 3 chronic kidney disease 07/10/2021 Atrial ectopy 09/29/2019 Overview (01/27/2025): 16.3% of all HBs holter 12/16 No ischemia, nl LV fxn stress 02/13 Nl LV fxn echo 11/15 Dilt stopped bc possible GI side effects Hypertension 02/07/2013 Overview (01/27/2025): Hydralazine, diltiazem stopped bc nausea Chlorthalidone stopped bc Cr joao from 0.97 to 1.64 GERD (gastroesophageal reflux disease) 3 Resolved Problems [...] Encounters Date Type Department Care Team Description 03/01/2025 External Device Data STL ABSTRACTION Provider, Abstract 02/28/2025 Results Follow-Up [facility] V[facility] - [facility] [address] [address] [place] [address] Belkys Webb RN BASIC METABOLIC PANEL 02/15/2025 External Device Data STL ABSTRACTION Provider, Abstract 02/08/2025 External Device Data STL ABSTRACTION Provider, Abstract 01/27/2025 10:45 AM WIND TURBINE MECHANIC Office Visit [facility] At [facility] [address] [address] [place] [address] Chaz Olvera MD Atrial ectopy (Primary Dx); Hypertension 01/10/2025 Telephone [facility] [address] [place] [address] Chaz Olvera MD Lab Results 12/31/2024 Results Follow-Up [facility] [address] [place] [address] Belkys Webb RN BASIC METABOLIC PANEL 12/23/2024 Telephone [facility] [address] [place] [address] Chaz Olvera MD Lab Results from Last 3 Months Immunizations Immunization Administration [...] on file Legal Sex Female 11:31 AM WIND TURBINE MECHANIC Gender Identity Not on file Sexual Orientation Not on file Occupation Industry Job Start Date Job End Date Not on file Not on file Not on file Not on file Not on file Not on file Not on file Not on file Last Filed Vital Signs Vital Sign Reading Time Taken Comments Blood Pressure 158/78 01/27/2025 10:53 AM WIND TURBINE MECHANIC Pulse 66 01/27/2025 10:53 AM WIND TURBINE MECHANIC Temperature 36.6 C (97.9 F) 04/14/2020 11:03 AM WIND TURBINE MECHANIC Respiratory Rate 18 02/09/2013 1:46 PM WIND TURBINE MECHANIC Oxygen Saturation 97% 01/27/2025 10:53 AM WIND TURBINE MECHANIC Inhaled Oxygen Concentration - - Weight 56.7 kg (125 lb) 01/27/2025 10:53 AM WIND TURBINE MECHANIC Height 167.6 cm (5' 6) 01/27/2025 10:53 AM WIND TURBINE MECHANIC Body Mass Index 20.18 01/27/2025 10:53 AM WIND TURBINE MECHANIC Plan of Treatment Upcoming Encounters Date Type Department Care Team (Late st Contact Info) Description 04/29/2025 10:45 AM WIND TURBINE MECHANIC Office Visit [facility] Heart and Vascular At [address] [place] [address] Chaz Olvera MD [address] [place] [address] [address] [place] [address] Health Maintenance Due Date Last Done Comments DTAP/TDAP/TD VACCINES (1 - Tdap) 1961 RSV VACCINE (60+ or ) (1 - 1-dose 75+ series) 2017 INFLUENZA VACCINE (#1) 2024 0, 12/22/2018, 12/25/2017, Additional history exists OSTEOPOROSIS SCREENING 04/14/2029 5, 04/14/2024, 03/25/2023, Additional history exists PNEUMOCOCCAL VACCINE 50+ YEARS Completed 06/16/2018 , 02/07/2010 ZOSTER VACCINE Completed 06/16/2018, 11/08/2017 Procedures Procedure Name Priority Date/Time Associated Diagnosis Comments BASIC METABOLIC PANEL Routine 02/25/2025 9:25 AM WIND TURBINE MECHANIC Hypertension, unspecified type BASIC METABOLIC PANEL Routine 12/30/2024 12:53 PM CDT Hypertension, unspecified type from Last 3 Months Results * (ABNORMAL) BASIC METABOLIC PANEL (02/25/2025 9:25 AM WIND TURBINE MECHANIC) Only the most recent of2 resultswithin the time period is included. GLUCOSE 99 65 - 139 mg/dL [facility] Calderon Comment: Non-fasting reference interval BUN 27(H) 7 - 25 mg/dL Dada doggylootColin Calderon CREATININE 0.92 0.60 - 0.95 mg/dL [employer] Arm[employer]in Calderon GFR 62 > OR = 60 mL/min/1.[address] doggylootColin Calderon BUN/CREAT RATIO 29(H) 6 - 22 (calc) Dada Gen[employer] Color TechnologiesColin Calderon SODIUM 144 135 - 146 mmol/L [facility] yemi Calderon POTASSIUM 4.2 3.5 - 5.3 mmol/L Dada doggyloot yemi Calderon CHLORIDE 108 98 - 110 mmol/L Dada doggyloot yemi Calderon CO2 28 20 - 32 mmol/L [employer] yemi Calderon CALCIUM 10.0 8.6 - 10.4 mg/dL [employer] ArmoryColin Calderon Comment: FASTING:NO FASTING: NO Test Performed at: [facility] [address] [place] [address] Yahaira-Lissette Isabel Blood 02/25/2025 9:25 AM WIND TURBINE MECHANIC 02/25/2025 9:25 AM WIND TURBINE MECHANIC us Chaz Olvera MD CHEMISTRY ORDERABLES Final Resul t [facility] [phone] [facility] [place] [address] [place] [address] from Last 3 [place] [address] AETNA PPO [facility] RX [employer] RX Member Subscriber Plan / Payer (Ef fective for All Dates) Name:Alaina Fournier Relation to Subscriber:Self Name:Alaina Fournier Payer ID:Not on file Group ID:[id number] Type:RX Medicare Part D Address: [place] Advance Directives For more information, please contact: [phone] Documents on File Type Date Recorded Patient Front End Mechanic Expl anation Advance Directive Living Will 02/12/2013 6:31 PM Advance Directive Living Will * Full Code (Latest Code Status on File) Date Activated Date Inactivated Comments 02/07/2013 5:39 PM 02/09/2013 4:31 PM Care Teams Electrical Engineering Director Relationship Specialty Start Date End Date Makeda Pillai MD [address] [place] [address] PCP - General Family Practice 09/08/18
--- OUTSIDE RECORDS SUMMARY | 2025-03-09 14:14 | XMS_ITS | Clinical Summary ---
Author Organization [facility] Address [address] [place] [address] Care Team Providers Care Electrical Engineering Teacher Name Role Phone Lizett Ames MD Primary Care Provider [phone] Allergies Active Allergy Reactions Criticality Noted Date [...] once daily 45 tablet 1 06/10/2024 Active amLODIPine (NORVASC) 5 mg tablet Take 1 tablet (5 mg total) by mouth daily 02/22/2025 Active famotidine 20 mg tablet Take 1 tablet (20 mg total) by mouth 2 (two) times a day 02/13/2025 Active melatonin tablet Take by mouth nightly as needed 08/07/2024 Active metoprolol XL (TOPROL-XL) 100 mg 24 hr tablet Take 1 tablet (100 mg total) by mouth daily 01/27/2025 Active spironolactone (ALDACTONE) 25 mg tablet Take 1 tablet (25 mg total) by mouth daily 02/08/2025 Active Active Problems Problem Noted Date Diagnosed Date Subclinical hyperthyroidism 10/15/2021 Assessment & Plan (02/10/2023 12:09 PM BRANCH OPERATIONS COORDINATOR): Follow up TFT today Assessment & Plan [...] 10/15/2021 Assessment & Plan (02/10/2023 12:10 PM BRANCH OPERATIONS COORDINATOR): Benign Plan follow up neck US in [...] Encounters Date Type Department Care Team Description 03/09/2025 11:30 AM BRANCH OPERATIONS COORDINATOR Office Visit [facility] Care at [address] [address] Bonnie Travis NP Hypotension, unspecified hypotension type (Primary Dx); Acute cough 01/11/2025 10:41 AM CDT - 01/11/2025 11:59 PM CDT Hospital Encounter [address] [address] Screening mammogram, encounter for Discharge Disposition: Discharge to home or self care from Last 3 Months Surgical History Surgery Date Site/Laterality Comments HYSTERECTOMY 1983 Total Hysterectomy - (Added by Conv) CATARACT EXTRACTION 2018 Medical History Medical History Date Comments Personal history of transien t ischemic attack (TIA), and cerebral infarction without residual deficits History of transient cerebra l ischemia - (Added by Conv) Osteoporosis Heart disease Hypertension Family History Medical History Relation Name Comments Cancer Father Lauvear Hearing loss Father Lauvear Hip fracture Father Lauvear Hypertension Father Lauvear Parkinsonism Father Lauvear Family history of Parkinson's disease - (Added by Conv) Prostate cancer Father Lauvear Cancer, pros mitchell; Alzheimer's disease Mother Natasha Family h istory of Alzheimer's disease - (Added by Conv) Hip fracture Mother [place] Osteoporosis Mother [place]asha Stroke Mother [place] Family history of cerebrovascular accident (CVA) - (Added by Conv) Relation Name Status Comments Father Lauvear Mother Natasha Social History Tobacco Use Types Packs/Day Years Used Date Smoking Tobacco: Never Smokeless Tobacco: Never Tobacco Cessation:Counseling Given: Not Answered Alcohol Use Standard Drinks/Week Comments Yes 0 (1 standard drink = 0.6 oz pur e alcohol) Comments No Sex and Gender Information Value Date Recorded Sex Assigned at Not on file Legal Sex Female 12:57 AM BRANCH OPERATIONS COORDINATOR Gender Identity Not on file Sexual Orientation Not on file Obstetrics History Para Term AB IAB SAB Ectopic Multiple Livin g Live Births 2 1 Date Outcome GA Total Labor Labor/2nd/3rd Weight Sex Type Anes PTL Gabby A1 A5 Name Clin Last Filed Vital Signs Vital Sign Reading Time Taken Comments Blood Pressure 90/62 03/09/2025 11:52 AM BRANCH OPERATIONS COORDINATOR Pulse 75 03/09/2025 11:28 AM BRANCH OPERATIONS COORDINATOR Temperature 36.7 C (98 F) 03/09/2025 11:28 AM BRANCH OPERATIONS COORDINATOR Respiratory Rate 18 03/09/2025 11:28 AM BRANCH OPERATIONS COORDINATOR Oxygen Saturation 96% 03/09/2025 11:28 AM BRANCH OPERATIONS COORDINATOR Inhaled Oxygen Concentration - - Weight 55.8 kg (123 lb) 03/09/2025 11:28 AM BRANCH OPERATIONS COORDINATOR Height 167.6 cm (5' 6) 03/09/2025 11:28 AM BRANCH OPERATIONS COORDINATOR Body Mass Index 19.85 03/09/2025 11:28 AM BRANCH OPERATIONS COORDINATOR Plan of Treatment Health Maintenance Due Date Last Done Comments Depression Screening 1940 Fall Risk Assessment 1940 Hepatitis B Screening 1960 Well Visit 65+ 06/09/2007 DTaP/Tdap/Td Vaccine (2 - Td or Tdap) 05/25/2023 05/24/2013, 01/10/2003 Influenza Vaccine (#1) 2024 , 12/28/2022, 01/07/2022, Additional history exists Osteoporosis Screening-Bone Density Scan 04/14/2026 04/14/2024, 03/25/2023, 02/18/2022, Additional history exists Pneumococcal vaccine 65+ Completed 019, 09/20/2016, 02/07/2010 Zoster Vaccine Completed 06/16/2018, 11/08/2017 Procedures Procedure Name Priority Date/Time Associated Diagnosis Comments ECG 12-LEAD Routine 03/09/2025 11:44 AM BRANCH OPERATIONS COORDINATOR Hypotension, unspecified hypotension type SCREENING MAMMOGRAM BILATERAL W SUDHEER Schedule Routine, Read Routine (OP Routine) 01/11/2025 11:25 AM CDT Screening mammogram, encounter for DEXA TBS AXIAL SKELETON BONE DENSITY 1 OR MORE SITES Schedule Routine, Read Routine (OP Routine) 04/14/2024 10:46 AM BRANCH OPERATIONS COORDINATOR Age-related osteoporosis without current pathological fracture from Last 3 Months or Most Recently Relevant to Health Maintenance Results * ECG 12 lead (03/09/2025 11:44 AM BRANCH OPERATIONS COORDINATOR) Bonnie Travis NP ECG ORDERABLES Edited Result - Final * Screening Mammogram Bilateral W Sudheer (01/11/2025 11:25 AM CDT) Anatomical Region Laterality Modality Breast Bilateral Mammography Impressions 01/11/2025 1:10 PM CDT Bilateral No evidence of malignancy in either breast. OVERALL BI-RADS FINAL ASSESSMENT: 1 - Negative RECOMMENDATION: Recommend bilateral annual screening mammography. Decision to continue screening mammography should be made based on clinical factors. Narrative 01/11/2025 1:10 PM CDT EXAMINATION: Screening Mammogram Bilateral W Sudheer: 01/11/2025 COMPARISON: Relevant prior studies available at the time of interpretation were reviewed, including the most recent mammogram on: 01/18/2022. TECHNIQUE: Mammography was performed with 2D and 3D digital breast tomosynthesis (DBT) images. CAD was utilized. BREAST PARENCHYMAL COMPOSITION: There are scattered areas of fibroglandular density. FINDINGS: Bilateral There is no suspicious mass, calcification, or architectural distortion in either breast. us Self Screening Mammogram IMG MAMMO PROCEDURES Fi nal Result * Dexa TBS Axial Skeleton Bone Density 1 or more sites (04/14/2024 10:46 AM BRANCH OPERATIONS COORDINATOR) Anatomical Region Laterality Modality Wrist, Body N/A Radiographic Edwina ging Narrative 04/19/2024 12:11 PM BRANCH OPERATIONS COORDINATOR Patient Name: Alaina Fournier Date of : 1940 Date of scan: 04/14/2024 Bone mineral density was performed on a [employer] Discovery Densitometer. Based on machine cross-calibration and [...] by the International Society of Clinical Densitometry. [id number] Lukas Olivo MD IMG DXA PROCEDURES Final Result from Last 3 Months or Most Recently Relevant to Health Maintenance Insurance [facility] [place] [address] UHC MEDICARE ADVANTAGE AETNA MEDICARE Care Teams Electrical Engineering Teacher Relationship Specialty Start Date End Date Lizett Ames MD PCP - General Family Medicine 11/09/21
[2025-03-09 15:56] VITALS: BP 153/76; PULSE 80; RESP 16; O2SAT 96
[2025-03-09 16:34] LABS: Add Urine Microscopic? YES; Appearance Urine Clear (Clear); Glucose Urine UA Negative (Negative); Leukocyte Esterase Ur Trace LEU/UL (Negative); Nitrate Urine Negative (Negative); Specific Grav Ur 1.021 (1.001-1.035)
[2025-03-09 17:19] VITALS: BP 139/99; PULSE 84; RESP 19; O2SAT 98
--- OUTSIDE RECORDS SUMMARY | 2025-03-09 17:48 | XMS_ITS | Clinical Summary ---
Author Organization [facility] Address [address] [place] [address] Care Team Providers Care Manager Lab Name Role Phone Lizett Ames MD Primary Care Provider [phone] Allergies Active Allergy Reactions Criticality Noted Date [...] 10/15/2021 Assessment & Plan (02/10/2023 12:09 PM LABORER AMMUNITION ASSEMBLY): Follow up TFT today Assessment & Plan [...] 10/15/2021 Assessment & Plan (02/10/2023 12:10 PM LABORER AMMUNITION ASSEMBLY): Benign Plan follow up neck US in [...] Department Care Team Description 03/09/2025 11:30 AM LABORER AMMUNITION ASSEMBLY Office Visit [facility] Care at [address] [address] Bonnie Travis NP Hypotension, unspecified hypotension type (Primary Dx); Acute cough 01/11/2025 10:41 AM CDT - 01/11/2025 11:59 PM CDT Hospital Encounter [address] [address] Screening mammogram, encounter for Discharge Disposition: Discharge [...] - (Added by Conv) Hip fracture Mother [place] Osteoporosis Mother [place] Stroke Mother [place] Family history of cerebrovascular accident (CVA) - [...] on file Legal Sex Female 12:57 AM LABORER AMMUNITION ASSEMBLY Gender Identity Not on file Sexual Orientation Not on file Obstetrics History Para Term AB IAB SAB Ectopic Multiple Livin g Live Births 2 1 Date Outcome GA Total Labor Labor/2nd/3rd Weight Sex Type Anes PTL Gabby A1 A5 Name Clin Last Filed Vital Signs Vital Sign Reading Time Taken Comments Blood Pressure 90/62 03/09/2025 11:52 AM LABORER AMMUNITION ASSEMBLY Pulse 75 03/09/2025 11:28 AM LABORER AMMUNITION ASSEMBLY Temperature 36.7 C (98 F) 03/09/2025 11:28 AM LABORER AMMUNITION ASSEMBLY Respiratory Rate 18 03/09/2025 11:28 AM LABORER AMMUNITION ASSEMBLY Oxygen Saturation 96% 03/09/2025 11:28 AM LABORER AMMUNITION ASSEMBLY Inhaled Oxygen Concentration - - Weight 55.8 kg (123 lb) 03/09/2025 11:28 AM LABORER AMMUNITION ASSEMBLY Height 167.6 cm (5' 6) 03/09/2025 11:28 AM LABORER AMMUNITION ASSEMBLY Body Mass Index 19.85 03/09/2025 11:28 AM LABORER AMMUNITION ASSEMBLY Plan of Treatment Health Maintenance Due Date [...] Comments ECG 12-LEAD Routine 03/09/2025 11:44 AM LABORER AMMUNITION ASSEMBLY Hypotension, unspecified hypotension type SCREENING MAMMOGRAM BILATERAL W SUDHEER Schedule Routine, Read Routine (OP Routine) 01/11/2025 11:25 AM CDT Screening mammogram, encounter for DEXA TBS AXIAL SKELETON BONE DENSITY 1 OR MORE SITES Schedule Routine, Read Routine (OP Routine) 04/14/2024 10:46 AM LABORER AMMUNITION ASSEMBLY Age-related osteoporosis without current pathological fracture from Last 3 Months or Most Recently Relevant to Health Maintenance Results * ECG 12 lead (03/09/2025 11:44 AM LABORER AMMUNITION ASSEMBLY) Bonnie Travis NP ECG ORDERABLES Edited Result [...] 1 or more sites (04/14/2024 10:46 AM LABORER AMMUNITION ASSEMBLY) Anatomical Region Laterality Modality Wrist, Body N/A Radiographic Edwina ging Narrative 04/19/2024 12:11 PM LABORER AMMUNITION ASSEMBLY Patient Name: Alaina Fournier Date of : 1940 Date of scan: 04/14/2024 Bone mineral density was performed on a [employer] Discovery Densitometer. Based on machine cross-calibration and [...] by the International Society of Clinical Densitometry. [id number] Lukas Olivo MD IMG DXA PROCEDURES Final Result from Last 3 Months or Most Recently Relevant to Health Maintenance Insurance [facility] [place] [address] UHC MEDICARE ADVANTAGE AETNA MEDICARE Care Teams Manager Lab Relationship Specialty Start Date End Date Lizett Ames MD PCP - General Family Medicine 11/09/21
--- OUTSIDE RECORDS SUMMARY | 2025-03-09 17:48 | XMS_ITS | Encounter Summary ---
Author Organization [facility] Address [address] [place] [address] Phone Care Team Providers Care Academic Records Specialist Name Role Phone Makeda Harris MD Primary Care Provider [phone] Lizett Ames MD Primary Care Provider [phone] Encounter Details Date Type Department Care Team [...] on file Legal Sex Female 12:57 AM TILE MECHANIC Gender Identity Not on file Sexual [...] COVID: Suspected 03/09/2025 03/09/2025 03/09/2025 12:09 PM TILE MECHANIC documented as of this encounter Care Teams Academic Records Specialist Relationship Specialty Start Date End Date Makeda Harris MD PCP - General Family Practice 03/24/18 11/08/21 Lizett Ames MD PCP - General Family Medicine 11/09/21 documented as of this encounter
--- OUTSIDE RECORDS SUMMARY | 2025-03-09 17:48 | XMS_ITS | Encounter Summary ---
Author Organization [facility] Address [address] [place] [address] Care Team Providers Care Clinical Researcher Name Role Phone Makeda Pillai MD Primary Care [facility] Encounter Details Date Type Department Care Team (Late st Contact Info) Description 02/28/2025 Results Follow-Up [facility] Heart and Vascular - [facility] [address] [place] [address] Belkys Webb RN BASIC METABOLIC PANEL [...] on file Legal Sex Female 11:31 AM ASBESTOS BRAKE LINING FINISHER Gender Identity Not on file Sexual Orientation [...] st Contact Info) Description 04/29/2025 10:45 AM ASBESTOS BRAKE LINING FINISHER Office Visit [facility] Heart and Vascular At [address] [place] [address] Chaz Olvera MD [address] [place] [address] [address] [place], [place] [id number] documented as of this encounter Visit Diagnoses Not on filedocumented in this encounter Care Teams Clinical Researcher Relationship Specialty Start Date End Date Makeda Pillai MD [address] [place] [id number] PCP - General Family Practice 09/08/18 documented as of this encounter
--- OUTSIDE RECORDS SUMMARY | 2025-03-09 17:48 | XMS_ITS | Clinical Summary ---
Author Organization [facility] Address [address] [place] [address] Phone Care Team Providers Care Vp Global Marketing [employer] Name Role Phone Makeda Pillai MD Primary [...] 10 mg by mouth daily. Active aspirin (CAHRISMA CHEWABLE) 81 mg Tablet, Chewable daily. Active LORazepam (ATIVAN) 2 mg tablet Take 10 mg by mouth 3 times daily. Active ZOLEDRONIC [id number] ATER IV Inject by intravenous injection. Taking [...] from the original. Dr. Chaz Olvera - Extruder Operator Multiple () Problem Noted Date Diagnosed Date Stage [...] STL ABSTRACTION Provider, Abstract 02/28/2025 Results Follow-Up [facility] [address] [facility] [address] [place] [address] Belkys Webb RN BASIC METABOLIC PANEL 02/15/2025 External Device Data STL ABSTRACTION Provider, Abstract 02/08/2025 External Device Data STL ABSTRACTION Provider, Abstract 01/27/2025 10:45 AM CLOTHES DRIER REPAIRER Office Visit [facility] Heart and Vascular At [facility] [address] [facility] [address] [place] [address] Chaz Olvera MD Atrial ectopy (Primary Dx); Hypertension 01/10/2025 Telephone [facility] [address] [place] [address] Chaz Olvera MD Lab Results 12/31/2024 Results Follow-Up [facility] [address] [place] [address] Belkys Webb RN BASIC METABOLIC PANEL 12/23/2024 Telephone [facility] [address] [place] [address] Chaz Olvera MD Lab Results [...] on file Legal Sex Female 11:31 AM CLOTHES DRIER REPAIRER Gender Identity Not on file Sexual Orientation Not on file Occupation Industry Job Start Date Job End Date Not on file Not on file Not on file Not on file Not on file Not on file Not on file Not on file Last Filed Vital Signs Vital Sign Reading Time Taken Comments Blood Pressure 158/78 01/27/2025 10:53 AM CLOTHES DRIER REPAIRER Pulse 66 01/27/2025 10:53 AM CLOTHES DRIER REPAIRER Temperature 36.6 C (97.9 F) 04/14/2020 11:03 AM CLOTHES DRIER REPAIRER Respiratory Rate 18 02/09/2013 1:46 PM CLOTHES DRIER REPAIRER Oxygen Saturation 97% 01/27/2025 10:53 AM CLOTHES DRIER REPAIRER Inhaled Oxygen Concentration - - Weight 56.7 kg (125 lb) 01/27/2025 10:53 AM CLOTHES DRIER REPAIRER Height 167.6 cm (5' 6) 01/27/2025 10:53 AM CLOTHES DRIER REPAIRER Body Mass Index 20.18 01/27/2025 10:53 AM CLOTHES DRIER REPAIRER Plan of Treatment Upcoming Encounters Date Type Department Care Team (Late st Contact Info) Description 04/29/2025 10:45 AM CLOTHES DRIER REPAIRER Office Visit [facility] Heart and Vascular At [address] [place] [address] Chaz Olvera MD [address] [place] [address] [address] [place] [address] Health Maintenance Due Date Last Done Comments [...] BASIC METABOLIC PANEL Routine 02/25/2025 9:25 AM CLOTHES DRIER REPAIRER Hypertension, unspecified type BASIC METABOLIC PANEL Routine 12/30/2024 12:53 PM CDT Hypertension, unspecified type from Last 3 Months Results * (ABNORMAL) BASIC METABOLIC PANEL (02/25/2025 9:25 AM CLOTHES DRIER REPAIRER) Only the most recent of2 resultswithin the time period is included. GLUCOSE 99 65 - 139 mg/dL Opicos[facility]in Calderon Comment: Non-fasting reference interval BUN 27(H) 7 - 25 mg/dL Dada [employer] Calderon CREATININE 0.92 0.60 - 0.95 mg/dL Tamir BiotechnologyColin Calderon GFR 62 > OR = 60 mL/min/1.7 3m2 [facility] [employer] [employer] SystemsColin Calderon BUN/CREAT RATIO 29(H) 6 - 22 (calc) Dada Pallet US[employer]olin Calderon SODIUM 144 135 - 146 mmol/L Opicos yemi Calderon POTASSIUM 4.2 3.5 - 5.3 mmol/L [facility] [employer] yemi Calderon CHLORIDE 108 98 - 110 mmol/L [facility] [employer] yemi Calderon CO2 28 20 - 32 mmol/L [employer] yemi Calderon CALCIUM 10.0 8.6 - 10.4 mg/dL Tamir BiotechnologyColin Calderon Comment: FASTING:NO FASTING: NO Test Performed at: [facility] [address] [place] [address] Yahaira-Lissette Isabel Blood 02/25/2025 9:25 AM CLOTHES DRIER REPAIRER 02/25/2025 9:25 AM CLOTHES DRIER REPAIRER us Chaz Olvera MD CHEMISTRY ORDERABLES Final Resul t [facility] [phone] [facility] [facility] [address] [place] [address] from Last 3 [place] [address] AETNA PPO [facility] RX OPTUM RX Member Subscriber Plan / Payer (Ef fective for All Dates) Name:Alaina Fournier Relation to Subscriber:Self Name:Alaina Fournier Payer ID:Not on file Group ID:[id number] Type:RX Medicare Part D Address: [place] Advance Directives For more information, please contact: [phone] Documents on File Type Date Recorded Patient Steel Placer Expl anation Advance Directive Living Will 02/12/2013 6:31 PM Advance Directive Living Will * Full Code (Latest Code Status on File) Date Activated Date Inactivated Comments 02/07/2013 5:39 PM 02/09/2013 4:31 PM Care Teams Vp Global Marketing [employer] Relationship Specialty Start Date End Date Makeda Pillai MD [address] [place] [address] PCP - General Family Practice 09/08/18
== END 2025-03-09 17:21 | disposition home or self-care (01) ==
PROVIDERS: Registered Nurse; Emergency Provider Student in an Organized Health Care Education/Training Program; PCP Student in an Organized Health Care Education/Training Program
DX: R55 Syncope and collapse (principal); J06.9 Acute upper respiratory infection, unspecified; B97.89 Other viral agents as the cause of diseases classified elsewhere; I10 Essential (primary) hypertension; Z86.73 Personal history of transient ischemic attack (TIA), and cerebral infarction without residual deficits; Z20.822 Contact with and (suspected) exposure to COVID-19
CPT/HCPCS: 36415; 71046; 80053; 81001; 83605; 83735; 85025; 87637; 93005; 99283

== ENCOUNTER 2025-03-15 12:04 | Emergency (ER) | payer MEDICARE, SELFPAY ==
--- NOTE | ~2025-03-15 | XR_ITS ---
EXAMINATION: XR chest 2V 03/15/2025 15:22 INDICATION: Weakness PROCEDURE: 2 view chest COMPARISON: Comparison to multiple prior studies sequentially, with oldest reviewed study dated 10/24/2008. FINDINGS: The lungs are clear. Mild cardiomegaly. There are no pleural effusions. There is no pneumothorax suspected. There is chronic apical pleural thickening/scarring. There is lumbar spondylosis. IMPRESSION: 1: Cardiomegaly. Reviewed, dictated and finalized at location O. 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
[2025-03-15 12:08] VITALS: BP 126/62; PULSE 52; RESP 16; TEMP 36.4; O2SAT 100
--- OUTSIDE RECORDS SUMMARY | 2025-03-15 12:11 | XMS_ITS | Encounter Summary ---
Author Organization [facility] Address [address] [place] [address] Phone Care Team Providers Care Analog Ic Design Architect Name Role Phone Makeda Harris MD Primary Care Provider [phone] Lizett Ames MD Primary Care Provider [phone] Encounter Details Date Type Department Care Team [...] on file Legal Sex Female 12:57 AM SERVICE TECHNICIAN COPIER Gender Identity Not on file Sexual Orientation [...] COVID: Suspected 03/09/2025 03/09/2025 03/09/2025 12:09 PM SERVICE TECHNICIAN COPIER documented as of this encounter Care Teams Analog Ic Design Architect Relationship Specialty Start Date End Date Makeda Harris MD PCP - General Family Practice 03/24/18 11/08/21 Lizett Ames MD PCP - General Family Medicine 11/09/21 documented as of this encounter
--- OUTSIDE RECORDS SUMMARY | 2025-03-15 12:11 | XMS_ITS | Clinical Summary ---
Author Organization [facility] Address [address] [place] [address] Phone Care Team Providers Care Intelligence Intern Name Role Phone Makeda Pillai MD Primary [...] by mouth 3 times daily. Active ZOLEDRONIC [id number] ATER IV Inject by intravenous injection. Taking [...] from the original. Dr. Chaz Olvera - Display Specialist () Problem Noted Date Diagnosed Date Stage [...] STL ABSTRACTION Provider, Abstract 02/28/2025 Results Follow-Up [facility] Heart and Vascular - [facility] [address] [facility] [address] [place] [address] Belkys Webb RN BASIC METABOLIC PANEL 02/15/2025 External Device Data STL ABSTRACTION Provider, Abstract 02/08/2025 External Device Data STL ABSTRACTION Provider, Abstract 01/27/2025 10:45 AM NEONATAL SOCIAL WORKER Office Visit [facility] [address] [facility] [address] [place] [address] Chaz Olvera MD Atrial ectopy (Primary Dx); Hypertension 01/10/2025 Telephone [facility] [address] [place] [address] Chaz Olvera MD Lab Results 12/31/2024 Results Follow-Up [facility] [address] [place] [address] Belkys Webb RN BASIC METABOLIC PANEL 12/23/2024 Telephone [facility] [address] [place] [address] Chaz Olvera MD Lab Results [...] on file Legal Sex Female 11:31 AM NEONATAL SOCIAL WORKER Gender Identity Not on file Sexual Orientation Not on file Occupation Industry Job Start Date Job End Date Not on file Not on file Not on file Not on file Not on file Not on file Not on file Not on file Last Filed Vital Signs Vital Sign Reading Time Taken Comments Blood Pressure 158/78 01/27/2025 10:53 AM NEONATAL SOCIAL WORKER Pulse 66 01/27/2025 10:53 AM NEONATAL SOCIAL WORKER Temperature 36.6 C (97.9 F) 04/14/2020 11:03 AM NEONATAL SOCIAL WORKER Respiratory Rate 18 02/09/2013 1:46 PM NEONATAL SOCIAL WORKER Oxygen Saturation 97% 01/27/2025 10:53 AM NEONATAL SOCIAL WORKER Inhaled Oxygen Concentration - - Weight 56.7 kg (125 lb) 01/27/2025 10:53 AM NEONATAL SOCIAL WORKER Height 167.6 cm (5' 6) 01/27/2025 10:53 AM NEONATAL SOCIAL WORKER Body Mass Index 20.18 01/27/2025 10:53 AM NEONATAL SOCIAL WORKER Plan of Treatment Upcoming Encounters Date Type Department Care Team (Late st Contact Info) Description 04/29/2025 10:45 AM NEONATAL SOCIAL WORKER Office Visit [facility] Heart and Vascular At [address] [place] [address] Chaz Olvera MD [address] [place] [address] [address] [place] [address] Health Maintenance Due Date Last Done Comments [...] BASIC METABOLIC PANEL Routine 02/25/2025 9:25 AM NEONATAL SOCIAL WORKER Hypertension, unspecified type BASIC METABOLIC PANEL Routine 12/30/2024 12:53 PM CDT Hypertension, unspecified type from Last 3 Months Results * (ABNORMAL) BASIC METABOLIC PANEL (02/25/2025 9:25 AM NEONATAL SOCIAL WORKER) Only the most recent of2 resultswithin the time period is included. GLUCOSE 99 65 - 139 mg/dL [facility]VisitColin Calderon Comment: Non-fasting reference interval BUN 27(H) 7 - 25 mg/dL Dada [facility] Calderon CREATININE 0.92 0.60 - 0.95 mg/dL [facility] [employer] Calderon GFR 62 > OR = 60 mL/min/1.7 3m2 [facility] PlusColin Calderon BUN/CREAT RATIO 29(H) 6 - 22 (calc) Dada [employer]in Calderon SODIUM 144 135 - 146 mmol/L [facility] yemi Calderon POTASSIUM 4.2 3.5 - 5.3 mmol/L [facility] yemi Calderon CHLORIDE 108 98 - 110 mmol/L [facility] yemi Calderon CO2 28 20 - 32 mmol/L [employer] yemi Calderon CALCIUM 10.0 8.6 - 10.4 mg/dL [facility] [employer] Calderon Comment: FASTING:NO FASTING: NO Test Performed at: [facility] [address] [place] [address] Yahaira-Lissette Isabel Blood 02/25/2025 9:25 AM NEONATAL SOCIAL WORKER 02/25/2025 9:25 AM NEONATAL SOCIAL WORKER us Chaz Olvera MD CHEMISTRY ORDERABLES Final Resul t [facility] [phone] [facility] [address] [place] [address] from Last 3 [place] [address] AETNA PPO [facility] RX OPTUM RX Member Subscriber Plan / Payer (Ef fective for All Dates) Name:Alaina Fournier Relation to Subscriber:Self Name:Alaina Fournier Payer ID:Not on file Group ID:[id number] Type:RX Medicare Part D Address: [place] Advance Directives For more information, please contact: [phone] Documents on File Type Date Recorded Patient Display Card Writer Expl anation Advance Directive Living Will 02/12/2013 6:31 PM Advance Directive Living Will * Full Code (Latest Code Status on File) Date Activated Date Inactivated Comments 02/07/2013 5:39 PM 02/09/2013 4:31 PM Care Teams Intelligence Intern Relationship Specialty Start Date End Date Makeda Pillai MD [address] [place] [address] PCP - General Family Practice 09/08/18
--- OUTSIDE RECORDS SUMMARY | 2025-03-15 12:11 | XMS_ITS | Clinical Summary ---
Author Organization [facility] Address [address] [place] [address] Care Team Providers Care Supervisor Scouring Pads Name Role Phone Lizett Ames MD Primary Care Provider [phone] Allergies Active Allergy Reactions Criticality Noted Date [...] 10/15/2021 Assessment & Plan (02/10/2023 12:09 PM MYSTERY SHOPPER): Follow up TFT today Assessment & Plan [...] 10/15/2021 Assessment & Plan (02/10/2023 12:10 PM MYSTERY SHOPPER): Benign Plan follow up neck US in [...] Department Care Team Description 03/09/2025 11:30 AM MYSTERY SHOPPER Office Visit [facility] [place] [facility] at [address] [address] Bonnie Travis NP Hypotension, unspecified hypotension type (Primary Dx); Acute cough 01/11/2025 10:41 AM CDT - 01/11/2025 11:59 PM CDT Hospital Encounter [address] [address] Screening mammogram, encounter for Discharge Disposition: Discharge [...] - (Added by Conv) Hip fracture Mother Sodus Osteoporosis Mother Natasha Stroke Mother Sodus Family history of cerebrovascular accident (CVA) - [...] on file Legal Sex Female 12:57 AM MYSTERY SHOPPER Gender Identity Not on file Sexual Orientation Not on file Obstetrics History Para Term AB IAB SAB Ectopic Multiple Livin g Live Births 2 1 Date Outcome GA Total Labor Labor/2nd/3rd Weight Sex Type Anes PTL Gabby A1 A5 Name Clin Last Filed Vital Signs Vital Sign Reading Time Taken Comments Blood Pressure 90/62 03/09/2025 11:52 AM MYSTERY SHOPPER Pulse 75 03/09/2025 11:28 AM MYSTERY SHOPPER Temperature 36.7 C (98 F) 03/09/2025 11:28 AM MYSTERY SHOPPER Respiratory Rate 18 03/09/2025 11:28 AM MYSTERY SHOPPER Oxygen Saturation 96% 03/09/2025 11:28 AM MYSTERY SHOPPER Inhaled Oxygen Concentration - - Weight 55.8 kg (123 lb) 03/09/2025 11:28 AM MYSTERY SHOPPER Height 167.6 cm (5' 6) 03/09/2025 11:28 AM MYSTERY SHOPPER Body Mass Index 19.85 03/09/2025 11:28 AM MYSTERY SHOPPER Plan of Treatment Health Maintenance Due Date [...] Comments ECG 12-LEAD Routine 03/09/2025 11:44 AM MYSTERY SHOPPER Hypotension, unspecified hypotension type SCREENING MAMMOGRAM BILATERAL W SUDHEER Schedule Routine, Read Routine (OP Routine) 01/11/2025 11:25 AM CDT Screening mammogram, encounter for DEXA TBS AXIAL SKELETON BONE DENSITY 1 OR MORE SITES Schedule Routine, Read Routine (OP Routine) 04/14/2024 10:46 AM MYSTERY SHOPPER Age-related osteoporosis without current pathological fracture from Last 3 Months or Most Recently Relevant to Health Maintenance Results * ECG 12 lead (03/09/2025 11:44 AM MYSTERY SHOPPER) Bonnie Travis NP ECG ORDERABLES Edited Result [...] 1 or more sites (04/14/2024 10:46 AM MYSTERY SHOPPER) Anatomical Region Laterality Modality Wrist, Body N/A Radiographic Edwina ging Narrative 04/19/2024 12:11 PM MYSTERY SHOPPER Patient Name: Alaina Fournier Date of : 1940 Date of scan: 04/14/2024 Bone mineral density was performed on a [employer] Discovery Densitometer. Based on machine cross-calibration and [...] by the International Society of Clinical Densitometry. [id number] Lukas Olivo MD IMG DXA PROCEDURES Final Result from Last 3 Months or Most Recently Relevant to Health Maintenance Insurance [place] [address] UHC MEDICARE ADVANTAGE AETNA MEDICARE Care Teams Supervisor Scouring Pads Relationship Specialty Start Date End Date Lizett Ames MD PCP - General Family Medicine 11/09/21
--- OUTSIDE RECORDS SUMMARY | 2025-03-15 12:11 | XMS_ITS | Encounter Summary ---
Author Organization [facility] Address [address] [place] [address] Care Team Providers Care Journeyman Powerhouse Operator Name Role Phone Makeda Pillai MD Primary Care [facility] Encounter Details Date Type Department Care Team (Late st Contact Info) Description 02/28/2025 Results Follow-Up [facility] Heart and Vascular - [facility] [address] [place] [address] Belkys Webb RN BASIC METABOLIC PANEL [...] on file Legal Sex Female 11:31 AM COLLISION ESTIMATOR Gender Identity Not on file Sexual Orientation [...] st Contact Info) Description 04/29/2025 10:45 AM COLLISION ESTIMATOR Office Visit [facility] Heart and Vascular At [address] [place] [address] Chaz Olvera MD [address] [place] [address] [address] [place], [place] [id number] documented as of this encounter Visit Diagnoses Not on filedocumented in this encounter Care Teams Journeyman Powerhouse Operator Relationship Specialty Start Date End Date Makeda Pillai MD [address] [place] [address] PCP - General Family Practice 09/08/18 documented as of this encounter
[2025-03-15 14:30] VITALS: BP 137/70; PULSE 71; RESP 16; O2SAT 99
[2025-03-15 15:02] VITALS: BP 139/75; PULSE 58; RESP 16; O2SAT 100
--- NOTE | 2025-03-15 15:05 | ECG_ITS ---
Test Date: 2025-03-15 15:13:31 Measurements Intervals [place] Rate: 53 P: 91 NV: 133 QRS: 50 QRSD: 88 T: 29 QT: 473 QTc: 445 Interpretive Statements SINUS BRADYCARDIA WITH MARKED SINUS ARRHYTHMIA BORDERLINE ECG Compared to ECG 03/09/2025 13:03:53 HEART RATE HAS DECREASED Electronically Signed On 03-15-2025 15:57:00 DRUG ENFORCEMENT AGENT by Tarun Arthur D.O.
[2025-03-15 15:19] LABS: Hematocrit 41.9 % (37.0-47.0); Hemoglobin 13.3 g/dL (12.0-15.0); Immature Granulocyte Percent A 1.3 % (0-0.5); Lymphocytes Absolute Auto 2.02 K/mm3 (0.9-3.2); Mean Corpuscular HGB Conc 31.7 g/dl (32-36); Mean Corpuscular Hemoglobin 28.9 pg (26-34); Mean Corpuscular Volume 90.9 fl (80-100); Nucleated Red Blood Cells Absolute Auto 0.000 K/mm3 (0.0-0.012); Nucleated Red Blood Cells Perc 0.0 % (0.0-0.2); Platelet Count Result 416 k/mm3 (150-375); Red Blood Count 4.61 M/mm3 (4.2-5.4); White Blood Count 9.7 K/mm3 (4.5-10.0)
--- NOTE | 2025-03-15 15:22 | PC.NURSE ---
pt to XR at this time
[2025-03-15 15:25] LABS: Add Urine Microscopic? YES; Appearance Urine Clear (Clear); Glucose Urine UA Negative (Negative); Leukocyte Esterase Ur Negative LEU/UL (Negative); Nitrate Urine Negative (Negative); Specific Grav Ur 1.011 (1.001-1.035)
[2025-03-15 15:26] VITALS: BP 124/73; PULSE 69
[2025-03-15 15:29] LABS: Alanine Aminotransferase 23 U/L (6-35); Albumin Level 4.3 g/dL (3.5-5.1); Alkaline Phosphatase 158 U/L (38-126); Anion Gap 8 mmol/L (4-12); Aspartate Amino Transferase 28 U/L (14-36); Bilirubin,Total 0.3 mg/dL (0.2-1.3); Blood Urea Nitrogen 33 mg/dL (7-17); Calcium 10.5 mg/dL (8.4-10.2); Carbon Dioxide 31 mmol/L (22-30); Chloride 99 mmol/L (98-107); Estimated CRCL calculation 29 ml/min; Estimated Glomerular Filt Rate 46; Glucose 104 mg/dL (65-110); Potassium 4.4 mmol/L (3.4-5.0); Sodium 138 mmol/L (137-145); Total Protein 8.3 g/dL (6.3-8.2)
[2025-03-15 15:30] VITALS: BP 138/65; PULSE 61
--- OUTSIDE RECORDS SUMMARY | 2025-03-15 15:42 | XMS_ITS | Encounter Summary ---
Author Organization [facility] Address [address] [place] [address] Care Team Providers Care Sales Analytics Manager Name Role Phone Makeda Pillai MD Primary Care [facility] Encounter Details Date Type Department Care Team (Late st Contact Info) Description 02/28/2025 Results Follow-Up [facility] Heart and Vascular - [facility] [address] [place] [address] Belkys Webb RN BASIC METABOLIC PANEL [...] on file Legal Sex Female 11:31 AM CATALYST IMPREGNATOR Gender Identity Not on file Sexual Orientation [...] st Contact Info) Description 04/29/2025 10:45 AM CATALYST IMPREGNATOR Office Visit [facility] Heart and Vascular At [address] [place] [address] Chaz Olvera MD [address] [place] [address] [address] [place], [place] [id number] documented as of this encounter Visit Diagnoses Not on filedocumented in this encounter Care Teams Sales Analytics Manager Relationship Specialty Start Date End Date Makeda Pillai MD [address] [place] [address] PCP - General Family Practice 09/08/18 documented as of this encounter
--- OUTSIDE RECORDS SUMMARY | 2025-03-15 15:42 | XMS_ITS | Encounter Summary ---
Author Organization [facility] Address [address] [place] [address] Phone Care Team Providers Care Varnish Blender Name Role Phone Makeda Harris MD Primary Care Provider [phone] Lizett Ames MD Primary Care Provider [phone] Encounter Details Date Type Department Care Team [...] on file Legal Sex Female 12:57 AM YIELD IMPROVEMENT ENGINEER Gender Identity Not on file Sexual Orientation [...] COVID: Suspected 03/09/2025 03/09/2025 03/09/2025 12:09 PM YIELD IMPROVEMENT ENGINEER documented as of this encounter Care Teams Varnish Blender Relationship Specialty Start Date End Date Makeda Harris MD PCP - General Family Practice 03/24/18 11/08/21 Lizett Ames MD PCP - General Family Medicine 11/09/21 documented as of this encounter
--- OUTSIDE RECORDS SUMMARY | 2025-03-15 15:42 | XMS_ITS | Clinical Summary ---
Author Organization [facility] Address [address] [place] [address] Phone Care Team Providers Care Skidway Man Name Role Phone Makeda Pillai MD Primary [...] by mouth 3 times daily. Active ZOLEDRONIC DXRI-IPYTCGOY-H ATER IV Inject by intravenous injection. Taking [...] from the original. Dr. Chaz Olvera - Fur Operator () Problem Noted Date Diagnosed Date Stage [...] Encounters Date Type Department Care Team Description 03/15/2025 Telephone [facility] Heart and Vascular - [facility] [address] [place] [address] [address] [place] [address] Chaz Olvera MD Medical Records 03/01/2025 External Device Data STL ABSTRACTION Provider, Abstract 02/28/2025 Results Follow-Up [facility] Vascular [facility] [address] [place] [address] Belkys Webb RN BASIC METABOLIC PANEL 02/15/2025 External Device Data STL ABSTRACTION Provider, Abstract 02/08/2025 External Device Data STL ABSTRACTION Provider, Abstract 01/27/2025 10:45 AM DOUGH MOLDER Office Visit [facility] Heart and Vascular At [facility] [address] [place] [address] Chaz Olvera MD Atrial ectopy (Primary Dx); Hypertension 01/10/2025 Telephone [facility] [address] [place] [address] Chaz Olvera MD Lab Results 12/31/2024 Results Follow-Up [facility] [address] [place] [address] Belkys Webb RN BASIC METABOLIC PANEL 12/23/2024 Telephone [facility] [address] [place] [address] Chaz Olvera MD Lab Results [...] on file Legal Sex Female 11:31 AM DOUGH MOLDER Gender Identity Not on file Sexual Orientation Not on file Occupation Industry Job Start Date Job End Date Not on file Not on file Not on file Not on file Not on file Not on file Not on file Not on file Last Filed Vital Signs Vital Sign Reading Time Taken Comments Blood Pressure 158/78 01/27/2025 10:53 AM DOUGH MOLDER Pulse 66 01/27/2025 10:53 AM DOUGH MOLDER Temperature 36.6 C (97.9 F) 04/14/2020 11:03 AM DOUGH MOLDER Respiratory Rate 18 02/09/2013 1:46 PM DOUGH MOLDER Oxygen Saturation 97% 01/27/2025 10:53 AM DOUGH MOLDER Inhaled Oxygen Concentration - - Weight 56.7 kg (125 lb) 01/27/2025 10:53 AM DOUGH MOLDER Height 167.6 cm (5' 6) 01/27/2025 10:53 AM DOUGH MOLDER Body Mass Index 20.18 01/27/2025 10:53 AM DOUGH MOLDER Plan of Treatment Upcoming Encounters Date Type Department Care Team (Late st Contact Info) Description 04/29/2025 10:45 AM DOUGH MOLDER Office Visit [facility] Heart and Vascular At [address] [place] [address] Chaz Olvera MD [address] [place] [address] [address] [place] [address] Health Maintenance Due Date Last Done Comments [...] BASIC METABOLIC PANEL Routine 02/25/2025 9:25 AM DOUGH MOLDER Hypertension, unspecified type BASIC METABOLIC PANEL Routine 12/30/2024 12:53 PM CDT Hypertension, unspecified type from Last 3 Months Results * (ABNORMAL) BASIC METABOLIC PANEL (02/25/2025 9:25 AM DOUGH MOLDER) Only the most recent of2 resultswithin the time period is included. GLUCOSE 99 65 - 139 mg/dL [employer] yemi Calderon Comment: Non-fasting reference interval BUN 27(H) 7 - 25 mg/dL [employer] yemi Kvng CREATININE 0.92 0.60 - 0.95 mg/dL [facility] yemi Calderon GFR 62 > OR = 60 mL/min/1.7 3m2 [employer] yemi Calderon BUN/CREAT RATIO 29(H) 6 - 22 (calc) [facility] yemi Calderon SODIUM 144 135 - 146 mmol/L [facility] yemi Calderon POTASSIUM 4.2 3.5 - 5.3 mmol/L [facility] yemi Calderon CHLORIDE 108 98 - 110 mmol/L [facility] yemi Calderon CO2 28 20 - 32 mmol/L [facility] yemi Calderon CALCIUM 10.0 8.6 - 10.4 mg/dL [employer] yemi Kvng Comment: FASTING:NO FASTING: NO Test Performed at: [place] [address] [address] [place] [address] Alyssa Culp Blood 02/25/2025 9:25 AM DOUGH MOLDER 02/25/2025 9:25 AM DOUGH MOLDER us Chaz Olvera MD CHEMISTRY ORDERABLES Final Resul t [facility] [phone] [place] [address] [address] [place] [id number] from Last [address] [place] [address] [place] [address] AETNA O [facility] RX OPT[employer] RX Member Subscriber Plan / Payer (Ef fective for All Dates) Name:Alaina Fournier Relation to Subscriber:Self Name:Alaina Fournier Payer ID:Not on file Group ID:[id number] Type:RX Medicare Part D Address: [address] Advance Directives For more information, please contact: [phone] Documents on File Type Date Recorded Patient Sheet Ironworker Expl anation Advance Directive Living Will 02/12/2013 6:31 PM Advance Directive Living Will * Full Code (Latest Code Status on File) Date Activated Date Inactivated Comments 02/07/2013 5:39 PM 02/09/2013 4:31 PM Care Teams Skidway Man Relationship Specialty Start Date End Date Makeda Pillai MD [address] [place] [id number] PCP - General Family Practice 09/08/18
--- OUTSIDE RECORDS SUMMARY | 2025-03-15 15:42 | XMS_ITS | Encounter Summary ---
Author Organization [facility] Address [address] [place] [address] Care Team Providers Care Short Range [employer] Name Role Phone Makeda Pillai MD Primary Care [facility] Reason for Visit * Reason Onset Date Comments Medical Records 03/15/2025 Encounter Details Date Type Department Care Team (Late st Contact Info) Description 03/15/2025 Telephone [facility] Heart and Vascular - [facility] [address] [facility] [address] [place] [address] Chaz Olvera MD [address] [place], [place] [id number] Medical Records Social History Tobacco Use Types Packs/Day Years Used Date Smoking Tobacco: Never Smokeless Tobacco: Never Alcohol Use Standard Drinks/Week Comments Yes 3.3 (1 standard drink = 0.6 oz p ure alcohol) glass of wine 3 times a week Comments No Sex and Gender Information Value Date Recorded Sex Assigned at Not on file Legal Sex Female 11:31 AM SLITTING AND SHIPPING SUPERVISOR Gender Identity Not on file Sexual Orientation Not on file Occupation Industry Job Start Date Job End Date Not on file Not on file Not on file Not on file Not on file Not on file Not on file Not on file documented as of this encounter Miscellaneous Notes * Telephone Encounter - Belkys Webb RN - 03/15/2025 2:58 PM SLITTING AND SHIPPING SUPERVISOR Reviewed already. TING AND SHIPPING SUPERVISOR * Telephone Encounter - Addis Juniorleodan Rojas - 03/15/2025 2:[address] Scan report from [facility] scanned into media for review. TING AND SHIPPING SUPERVISOR documented in this encounter Plan of Treatment Upcoming Encounters Date Type Department Care Team (Late st Contact Info) Description 04/29/2025 10:45 AM SLITTING AND SHIPPING SUPERVISOR Office Visit [facility] Heart [facility] At [facility] [address] [facility] [address] [place] [address] Chaz Olvera MD [facility] [address] [facility] [address] [place] [address] documented as of this encounter Visit Diagnoses Not on filedocumented in this encounter Care Teams [employer] Air Defense Artillery Relationship Specialty Start Date End Date Makeda Pillai MD [address] [place] [address] PCP - General Family Practice 09/08/18 documented as of this encounter
--- OUTSIDE RECORDS SUMMARY | 2025-03-15 15:42 | XMS_ITS | Clinical Summary ---
Author Organization [facility] Address [address] [place] [address] Care Team Providers Care Global Chief Creative Officer Name Role Phone Lizett Ames MD Primary Care Provider [phone] Allergies Active Allergy Reactions Criticality Noted Date [...] 10/15/2021 Assessment & Plan (02/10/2023 12:09 PM TURNER MACHINE): Follow up TFT today Assessment & Plan [...] 10/15/2021 Assessment & Plan (02/10/2023 12:10 PM TURNER MACHINE): Benign Plan follow up neck US in [...] Department Care Team Description 03/09/2025 11:30 AM TURNER MACHINE Office Visit [facility] Medical [facility] Care at [address] [address] Bonnie Travis NP Hypotension, unspecified hypotension type (Primary Dx); Acute cough 01/11/2025 10:41 AM CDT - 01/11/2025 11:59 PM CDT Hospital Encounter [address] [address] Screening mammogram, encounter for Discharge Disposition: Discharge [...] - (Added by Conv) Hip fracture Mother Norman Osteoporosis Mother Natasha Stroke Mother Norman Family history of cerebrovascular accident (CVA) - [...] on file Legal Sex Female 12:57 AM TURNER MACHINE Gender Identity Not on file Sexual Orientation Not on file Obstetrics History Para Term AB IAB SAB Ectopic Multiple Livin g Live Births 2 1 Date Outcome GA Total Labor Labor/2nd/3rd Weight Sex Type Anes PTL Gabby A1 A5 Name Clin Last Filed Vital Signs Vital Sign Reading Time Taken Comments Blood Pressure 90/62 03/09/2025 11:52 AM TURNER MACHINE Pulse 75 03/09/2025 11:28 AM TURNER MACHINE Temperature 36.7 C (98 F) 03/09/2025 11:28 AM TURNER MACHINE Respiratory Rate 18 03/09/2025 11:28 AM TURNER MACHINE Oxygen Saturation 96% 03/09/2025 11:28 AM TURNER MACHINE Inhaled Oxygen Concentration - - Weight 55.8 kg (123 lb) 03/09/2025 11:28 AM TURNER MACHINE Height 167.6 cm (5' 6) 03/09/2025 11:28 AM TURNER MACHINE Body Mass Index 19.85 03/09/2025 11:28 AM TURNER MACHINE Plan of Treatment Health Maintenance Due Date [...] Comments ECG 12-LEAD Routine 03/09/2025 11:44 AM TURNER MACHINE Hypotension, unspecified hypotension type SCREENING MAMMOGRAM BILATERAL W SUDHEER Schedule Routine, Read Routine (OP Routine) 01/11/2025 11:25 AM CDT Screening mammogram, encounter for DEXA TBS AXIAL SKELETON BONE DENSITY 1 OR MORE SITES Schedule Routine, Read Routine (OP Routine) 04/14/2024 10:46 AM TURNER MACHINE Age-related osteoporosis without current pathological fracture from Last 3 Months or Most Recently Relevant to Health Maintenance Results * ECG 12 lead (03/09/2025 11:44 AM TURNER MACHINE) Bonnie Travis NP ECG ORDERABLES Edited Result [...] 1 or more sites (04/14/2024 10:46 AM TURNER MACHINE) Anatomical Region Laterality Modality Wrist, Body N/A Radiographic Edwina ging Narrative 04/19/2024 12:11 PM TURNER MACHINE Patient Name: Alaina Fournier Date of : 1940 Date of scan: 04/14/2024 Bone mineral density was performed on a HoloXradia Discovery Densitometer. Based on machine cross-calibration and [...] by the International Society of Clinical Densitometry. [id number] Lukas Olivo MD IMG DXA PROCEDURES Final Result from Last 3 Months or Most Recently Relevant to Health Maintenance Insurance [facility] [address] UHC MEDICARE ADVANTAGE [employer]ET[employer] MEDICARE Care Teams Global Chief Creative Officer Relationship Specialty Start Date End Date Lizett Ames MD PCP - General Family Medicine 11/09/21
--- NOTE | 2025-03-15 16:09 | ED.WEAKNESS ---
HPI - Weakness General Chief complaint: Weakness Stated complaint: URI infection, weak, hypotension Time Seen by Provider: 03/15/25 15:16 Source: patient Mode of arrival: ambulatory Limitations: no limitations History of Present Illness HPI Narrative: This is a 84-year-old female that presents to the emergency department for low blood pressure. Reports she was seen by her PCP this morning. She felt lightheaded, her blood pressure is noted to be low. Reports she was recently started on amlodipine and spironolactone because her blood pressures were running high. Her blood pressure has been normal in the ER, she feels better at this time. Related Data Home Medications ?Medication ?Instructions ?Recorded ?Confirmed ?Last Taken ?Type calcium carbonate (Calcium 500) 2,500 mg PO DAILY 10/27/20 03/15/25 07/23/24 History multivitamin 1 tablet PO DAILY 10/27/20 03/15/25 07/23/24 History aspirin 81 mg tablet,delayed 81 mg PO DAILY 10/04/24 03/15/25 Unknown History release (Adult Low Dose Aspirin) vitamin E (dl, acetate) 180 mg 180 mg PO DAILY 10/04/24 03/15/25 Unknown History (400 unit) capsule zoledronic acid 4 mg intravenous 4 mg IV .YEARLY 10/04/24 03/15/25 Unknown History solution lisinopril 40 mg tablet 40 mg PO DAILY 10/25/24 03/15/25 Unknown History metoprolol succinate 100 mg 100 mg PO DAILY 02/03/25 03/15/25 Unknown History tablet,extended release 24 hr Allergies Allergy/AdvReac Type Severity Reaction Status Date / Time nitrofurantoin Allergy Unknown Unknown Verified 03/15/25 12:06 Review of Systems Review of Systems: All systems reviewed & are unremarkable except as noted in HPI and below PMFSH Past Medical History Medical History Broken hip (~07/16/24) Orthostatic hypotension 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 Hemorrhoids Diverticulosis GERD (gastroesophageal reflux disease) Thyroid Nodule Dysphagia Intertrochanteric fracture of left hip Nausea TIA (transient ischemic attack) Hypertension Surgical History Surgical History History of hip surgery Hx of hysterectomy Family History Family History Father Hypertension Family history of pancreatic cancer Grandparent Carcinoma of colon Mother Family history of Alzheimer's disease Social History Social History Smoking status: Never smoker Second hand tobacco smoke exposure: No Alcohol intake: former Substance use: never Substance use type: does not use Lack of Transportation: No Lack of Food: Never True Current Housing: I Have Housing Concerned About Future Housing: No Difficulty Paying Gas/Electric Bills: No Difficulty Paying for Meds: No Currently Unemployed: No Education: Master's Degree or Higher Difficulty w/ Childcare or Family Care: No Living arrangements: with family Additional living arrangements comments: 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 HEAD: Normocephalic, atraumatic. EYES: EOMI. ENT: Nares clear, no rhinorrhea or epistaxis. Mucous membranes moist. Oropharynx without tonsillar hypertrophy exudate or other lesions. CHEST: Clear to auscultation. No respiratory distress. No wheezes rales or rhonchi HEART: Regular rate and rhythm. No murmur heard. Normal peripheral pulses. EXTREMITIES: Normal range of motion. No edema. SKIN: Warm, dry, no rash. NEURO: No focal deficits. Alert and oriented x3. PSYCH: Normal mood and affect Course Vital Signs Vital signs: Vital Signs Temperature 97.6 F 03/15/25 12:08 Pulse Rate 52 L 03/15/25 12:08 Respiratory Rate 16 03/15/25 12:08 Blood Pressure 126/62 03/15/25 12:08 Pulse Oximetry 100 03/15/25 12:08 Oxygen Delivery Room Air 03/15/25 12:08 Temperature 97.6 F 03/15/25 12:08 Pulse Rate 61 03/15/25 15:30 Respiratory Rate 16 03/15/25 15:02 Blood Pressure 138/65 03/15/25 15:30 Pulse Oximetry 100 03/15/25 15:02 Oxygen Delivery Room Air 03/15/25 15:02 MDM MDM Narrative Medical decision making narrative: Patient presents emergency department for low blood pressure readings at her PCP office. 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 Was feeling lightheaded her PCP office, blood pressure noted to be in the 90 systolic. Sent to the ER for further evaluation. Her blood pressure has been normal here. She feels better. Cbc without concerning findings. Metabolic panel with mild dehydration, patient hydrated with half a L of IV fluids. Urine without evidence of infection. Chest x-ray shows some cardiomegaly. EKG shows sinus bradycardia. Patient was updated on her workup. Instructed to have close follow-up with her glass enamel mixer Differential Diagnosis Differential Diagnosis: Orthostatic hypotension, medication side effect, electrolyte derangement, dehydration Lab Data MDM Lab Attestation statement: I personally reviewed the patient's lab results. 03/15/25 15:13 03/15/25 15:13 Labs: Lab Results 03/15/25 Range/Units 15:13 WBC 9.7 (4.5-10.0) K/mm3 RBC 4.61 (4.2-5.4) M/mm3 Hgb 13.3 (12.0-15.0) g/dL Hct 41.9 (37.0-47.0) % MCV 90.9 (80-100) fl MCH 28.9 (26-34) pg MCHC 31.7 L (32-36) g/dl RDW 12.1 (11.5-14.5) % Plt Count 416 H D (150-375) k/mm3 MPV 9.2 (7.4-10.4) fl Immature Gran % (Auto) 1.3 H (0-0.5) % Neut % (Auto) 67.2 (45.5-73.1) % Lymph % (Auto) 20.9 (18.3-44.2) % [place] % (Auto) 8.8 H (2.6-8.5) % Eos % (Auto) 1.0 (0-4.4) % Baso % (Auto) 0.8 (0.2-1.2) % Lymph # (Auto) 2.02 (0.9-3.2) K/mm3 [place] # (Auto) 0.9 H (0.1-0.6) K/mm3 Eos # (Auto) 0.1 (0-0.3) K/mm3 Baso # (Auto) 0.1 (0.0-0.1) K/mm3 Abs Immat Gran (auto) 0.13 H (0.00-0.031) K/mm3 Absolute Neuts (auto) 6.5 (1.3-6.7) K/mm3 Absolute Nucleated RBC 0.000 (0.0-0.012) K/mm3 Nucleated RBC % 0.0 (0.0-0.2) % Sodium 138 (137-145) mmol/L Potassium 4.4 (3.4-5.0) mmol/L Chloride 99 (98-107) mmol/L Carbon Dioxide 31 H (22-30) mmol/L Anion Gap 8 (4-12) mmol/L BUN 33 H (7-17) mg/dL Creatinine 1.14 H (0.7-1.0) mg/dL Estim Creat Clear Calc 29 ml/min Estimated GFR 46 L (59 - ) Glucose 104 (65-110) mg/dL Calcium 10.5 H (8.4-10.2) mg/dL Total Bilirubin 0.3 (0.2-1.3) mg/dL AST 28 (14-36) U/L ALT 23 (6-35) U/L Alkaline Phosphatase 158 H (38-126) U/L Total Protein 8.3 H (6.3-8.2) g/dL Albumin 4.3 (3.5-5.1) g/dL Urine Color Yellow (Yellow) Urine Appearance Clear (Clear) Urine pH 5.0 (5.0-9.0) Ur Specific [place] 1.011 (1.001-1.035) Urine Protein Trace (Negative) mg/dL Urine Glucose (UA) Negative (Negative) mg/dL Urine Ketones Negative (Negative) mg/dL Ur Blood (Man) Negative (Negative) Urine Nitrate Negative (Negative) Urine Bilirubin Negative (Negative) Urine Urobilinogen 0.2 (<2.0) mg/dL Leukocyte Esterase Rfl Negative (Negative) ALEKSEY/UL Urine RBC 0-2 (0-2) /hpf Urine WBC 0-5 (0-3) /hpf Ur Squamous Epith Cells None seen (Few) /hpf Urine Bacteria None seen /hpf Urine Casts 3-5 Imaging Data Radiologist's impression: ITS Impressions Chest X-Ray 03/15/25 15:42 IMPRESSION: 1: Cardiomegaly. ECG Data EKG #1: ECG completion date: 03/15/25 bradycardia, sinus rhythm, no ST changes and normal QT Critical Care Time Critical Care Time Critical Care Time: No Discharge Plan Discharge Clinical Impression: Dehydration, Orthostatic hypotension Patient Disposition: Home Condition: Improved Instructions: Dehydration (ED), Hypotension (ED) Additional Instructions: Return to the emergency department if you experience fever, chest pain, shortness of breath, abdominal pain with nausea and vomiting, weakness, numbness, you pass out, or any other symptoms that are concerning to you. You did look a little dehydrated today. Im wondering if the diuretic (Spironolactone) you were started on is dropping your blood pressure a little too much Follow up with your glass enamel mixer Patient Language: Romanian Prescriptions: No Action lisinopril 40 mg tablet 40 mg PO DAILY metoprolol succinate 100 mg tablet extended release 24 hr 100 mg PO DAILY calcium carbonate [Calcium 500] 500 mg calcium (1,250 mg) tablet,chewable 2,500 mg PO DAILY multivitamin Tablet 1 tablet PO DAILY aspirin [Adult Low Dose Aspirin] 81 mg tablet,delayed release (DR/EC) 81 mg PO DAILY vitamin E (dl, acetate) 180 mg (400 unit) capsule 180 mg PO DAILY zoledronic acid 4 mg recon soln 4 mg IV .YEARLY amlodipine 5 mg tablet 5 mg PO DAILY Qty: 1 0RF spironolactone 25 mg tablet 25 mg PO DAILY Qty: 1 0RF lorazepam 1 mg tablet 1 mg PO Q12H PRN (Reason: anxiety) Qty: 60 0RF famotidine 20 mg tablet See Rx Instructions .ROUTE .COMPLEX Qty: 60 0RF Dose Instruction: Take 1 tablet by mouth twice daily Rx Instructions: Take 1 tablet by mouth twice daily methimazole 5 mg tablet 2.5 mg PO QPM Qty: 30 0RF cholecalciferol (vitamin D3) 50 mcg (2,000 unit) capsule 50 mcg PO DAILY Qty: 30 0RF Follow-up/Referrals: Brie Judge PA-C [Primary Care Provider, Family Practice]
[2025-03-15] MEDS: SODIUM CHLORIDE 0.9% IV 500 ML 999 ML IV CONT (16:40)
== END 2025-03-15 17:46 | disposition home or self-care (01) ==
PROVIDERS: Emergency Medicine; Emergency Provider Physician Assistant; PCP Student in an Organized Health Care Education/Training Program
DX: I95.1 Orthostatic hypotension (principal); E86.0 Dehydration; I10 Essential (primary) hypertension; K21.9 Gastro-esophageal reflux disease without esophagitis; Z86.73 Personal history of transient ischemic attack (TIA), and cerebral infarction without residual deficits; Z90.710 Acquired absence of both cervix and uterus; I51.7 Cardiomegaly; Z79.82 Long term (current) use of aspirin; R00.1 Bradycardia, unspecified; Z79.899 Other long term (current) drug therapy
CPT/HCPCS: 36415; 71046; 80053; 81001; 85025; 93005; 99283; J7040